=== PATIENT | female | born 1990 | race Caucasian/White ===

== ENCOUNTER 2016-11-24 15:47 | Emergency (ER) | payer OTHER ==
[2016-11-24 17:14] LABS: Appearance,Urine Clear (Clear); Bilirubin,Urine Negative (Negative); Glucose,Urine (UA) Negative (Negative); Ketones,Urine Negative (Negative); Leukocyte Esterase,Urine Negative (Negative); Nitrite,Urine Negative (Negative); PH, Urine 6.5 (5.0-8.0); Protein,Urine Negative (Negative); Specific Gravity,Urine 1.011 (1.001-1.035); UA Billing (MACRO vs. MICRO) CHEM; Urobilinogen,Urine <2.0 mg/dL (<2.0)
[2016-11-24] MEDS ORDERED: DIAZEPAM 5 MG TAB PO STA (17:28)
[2016-11-24] MEDS ORDERED: MECLIZINE 12.5 MG TAB PO STA (17:28)
[2016-11-24] MEDS ORDERED: ONDANSETRON ODT 4 MG TAB PO STA (17:28)
--- NOTE | 2016-11-24 17:29 | ED ---
General Adult HPI - General Chief complaint: Dizziness Stated complaint: Dizzy/Vomiting Time Seen by Provider: 11/24/16 16:36 Source: patient, RN notes reviewed, old records reviewed Mode of arrival: wheelchair Limitations: no limitations - History of Present Illness Initial comments: This is a 26-year-old female the ER for evaluation of nausea vomiting room spinning around. Patient has no medical history takes no medications . She admits to right ear pain of about 3-4 days. Progressing, no change in hearing. Noted no other neurological deficits. Patient is vomiting with position change. Symptoms are better if she sits still worse when she looks to the right. No head trauma no fevers - Related Data Home Medications Medication Instructions Recorded Confirmed Albuterol Inhaler [Ventolin Hfa 1 - 2 puff INHALATION RT-Q6H PRN 05/16/16 Inhaler] Previous Rx's Medication Instructions Recorded Azithromycin [Zithromax Z-pack] 0 mg PO DIRECTED #6 tab 11/24/16 Diazepam [Valium] 5 mg PO HS #10 tab 11/24/16 Meclizine [Antivert] 25 mg PO TID #30 tab 11/24/16 Ondansetron [Zofran] 4 mg PO Q8HR PRN #30 tab 11/24/16 Allergies Allergy/AdvReac Type Severity Reaction Status Date / Time amoxicillin [Amoxicillin] Allergy Swelling Verified 11/24/16 16:47 Review of Systems ROS Statement: Those systems with pertinent positive or pertinent negative responses have been documented in the HPI. ROS Other: All systems not noted in ROS Statement are negative. Past Medical History Past Medical History: Asthma Additional Past Medical History / Comment(s): multiple personality disorder, bipolar, depression History of Any Multi-Drug Resistant Organisms: None Reported Past Surgical History: Adenoidectomy, Tonsillectomy Past Anesthesia/Blood Transfusion Reactions: No Reported Reaction Past Psychological History: Anxiety, Bipolar, Depression, Schizoaffective Disorder Smoking Status: Current every day smoker Past Alcohol Use History: None Reported Past Drug Use History: None Reported - Past Family History Mother Family Medical History: Cancer General Exam Limitations: no limitations General appearance: alert, in no apparent distress Head exam: Present: atraumatic, normocephalic, normal inspection Eye exam: Present: normal appearance, PERRL, EOMI, nystagmus (Left). Absent: scleral icterus, conjunctival injection, periorbital swelling ENT exam: Present: normal exam, mucous membranes moist Neck exam: Present: normal inspection. Absent: tenderness, meningismus, lymphadenopathy Respiratory exam: Present: normal lung sounds bilaterally. Absent: respiratory distress, wheezes, rales, rhonchi, stridor Cardiovascular Exam: Present: regular rate, normal rhythm, normal heart sounds. Absent: systolic murmur, diastolic murmur, rubs, gallop, clicks GI/Abdominal exam: Present: soft, normal bowel sounds. Absent: distended, tenderness, guarding, rebound, rigid Extremities exam: Present: normal inspection, full ROM, normal capillary refill. Absent: tenderness, pedal edema, joint swelling, calf tenderness Back exam: Present: normal inspection Neurological exam: Present: alert, oriented X3, CN II-XII intact Psychiatric exam: Present: normal affect, normal mood Skin exam: Present: warm, dry, intact, normal color. Absent: rash Course Vital Signs 11/24/16 15:58 Temperature 97.8 F Pulse Rate 78 Respiratory 18 Rate Blood Pressure 119/90 O2 Sat by Pulse 98 Oximetry - Reevaluation(s) Reevaluation #1: 11/24/16 17:35 Patient is able to ambulate without ataxia Medical Decision Making - Medical Decision Making 26 female year with right otitis as well as vertigo, suspect vertigo related to viral infection causing otitis media. Patient's symptoms are improved in emergency room. Patient will be discharged home to follow-up with primary care , at this time patient is low risk for stroke, secondary to H [facility] medical history. - Lab Data Lab Results 11/24/16 11/24/16 Range/Units 16:38 16:38 Urine Color Yellow Urine Appearance Clear (Clear) Urine pH 6.5 (5.0-8.0) Ur Specific [place] 1.011 (1.001-1.035) Urine Protein Negative (Negative) Urine Glucose (UA) Negative (Negative) Urine Ketones Negative (Negative) Urine Blood Negative (Negative) Urine Nitrate Negative (Negative) Urine Bilirubin Negative (Negative) Urine Urobilinogen <2.0 (<2.0) mg/dL Ur Leukocyte Esterase Negative (Negative) Urine HCG, Qual Not Detected (Not Detectd) Disposition Clinical Impression: Vertigo, Otitis media, left Disposition: HOME SELF-CARE Condition: Good Instructions: Vertigo (ED), Benign Paroxysmal Positional Vertigo (ED), Meniere Disease (ED), Otitis Media (ED) Prescriptions: Azithromycin [Zithromax Z-pack] 0 mg PO DIRECTED #6 tab Diazepam [Valium] 5 mg PO HS #10 tab Meclizine [Antivert] 25 mg PO TID #30 tab Ondansetron [Zofran] 4 mg PO Q8HR PRN #30 tab PRN Reason: Nausea And Vomiting Referrals: None,Stated [Primary Care Provider] - 1-2 days
[2016-11-24 17:42] VITALS: BP 116/68; PULSE 84; RESP 20; TEMP 98
== END 2016-11-24 17:40 | disposition home or self-care (01) ==
LOC: EC 15:47
DX: R42 Dizziness and giddiness (principal); H66.92 Otitis media, unspecified, left ear; Z88.0 Allergy status to penicillin; F17.200 Nicotine dependence, unspecified, uncomplicated
CPT/HCPCS: 81003; 81025; 87086; 99284

== ENCOUNTER 2017-02-12 13:57 | Emergency (ER) | payer OTHER ==
[2017-02-12 14:06] VITALS: BP 138/85; PULSE 89; RESP 18; TEMP 98.7
--- NOTE | 2017-02-12 14:24 | ED ---
ENT HPI - General Chief complaint: Dental/Oral Stated complaint: Mouth Pain Time Seen by Provider: 02/12/17 14:10 Source: patient, RN notes reviewed Mode of arrival: ambulatory Limitations: no limitations - History of Present Illness Initial comments: Patient is a 26-year-old female presents to the emergency for evaluation of dental pain. Patient is having dental pain for the past few days. Patient states she has a broken tooth in her left upper tooth. Patient states she has pain radiating on her entire upper jaw. Patient states she has not been to a dentist in a very long time. Patient states she is taking ibuprofen with no relief of symptoms. Patient denies any recent trauma to her teeth. Patient denies fevers or chills. Patient denies headache or dizziness. Patient denies any swelling or drainage from her tooth. - Related Data Home Medications Medication Instructions Recorded Confirmed Albuterol Inhaler [Ventolin Hfa 1 - 2 puff INHALATION RT-Q6H PRN 05/16/16 Inhaler] Paliperidone [Paliperidone ER] 1.5 mg PO 02/12/17 Prazosin [Minipress] 1 mg PO BID 02/12/17 02/12/17 Previous Rx's Medication Instructions Recorded Clindamycin [Cleocin] 300 mg PO Q6H #40 capsule 02/12/17 HYDROcodone/APAP 5-325MG [[place] 1 tab PO Q6HR PRN #10 tab 02/12/17 5-325] Allergies Allergy/AdvReac Type Severity Reaction Status Date / Time amoxicillin [Amoxicillin] Allergy Swelling Verified 02/12/17 14:06 Review of Systems ROS Statement: Those systems with pertinent positive or pertinent negative responses have been documented in the HPI. ROS Other: All systems not noted in ROS Statement are negative. Past Medical History Past Medical History: Asthma Additional Past Medical History / Comment(s): multiple personality disorder, bipolar, depression History of Any Multi-Drug Resistant Organisms: None Reported Past Surgical History: Adenoidectomy, Tonsillectomy Past Anesthesia/Blood Transfusion Reactions: No Reported Reaction Past Psychological History: Anxiety, Bipolar, Depression, Schizoaffective Disorder Smoking Status: Current every day smoker Past Alcohol Use History: None Reported Past Drug Use History: None Reported - Past Family History Mother Family Medical History: Cancer General Exam - General Exam Comments Initial Comments: Sitting in exam chair in no acute distress. Limitations: no limitations General appearance: alert Head exam: Present: atraumatic, normocephalic, normal inspection Eye exam: Present: normal appearance Expanded Teeth exam: Present: dental caries, fractured tooth # (18), dental tenderness # (18), other (No mouth floor tenderness) Throat exam: normal inspection Neck exam: Present: normal inspection, full ROM. Absent: tenderness, lymphadenopathy Respiratory exam: Absent: respiratory distress Extremities exam: Present: normal inspection Back exam: Present: normal inspection Neurological exam: Present: alert, oriented X3, CN II-XII intact, normal gait Psychiatric exam: Present: normal affect, normal mood Skin exam: Present: warm, dry, intact, normal color. Absent: rash Course Vital Signs 02/12/17 14:03 Temperature 98.7 F Pulse Rate 89 Respiratory 18 Rate Blood Pressure 138/85 O2 Sat by Pulse 97 Oximetry Medical Decision Making - Medical Decision Making Patient is a 26-year-old female since emergency room for violation of dental pain. Patient does have a broken tooth on tooth #18. Patient given prophylactic antibiotics and pain medications and advised to follow up with a dentist. Patient is afebrile. Negative facial edema. Patient states she understands everything that was discussed with her. Return parameters discussed. Case discussed Dr. Ching. Disposition Clinical Impression: Pain, dental Disposition: HOME SELF-CARE Condition: Good Instructions: Dental Caries (ED), Toothache (ED) Additional Instructions: Please follow up with a dentist. If you do not have a dentist, you may contact [facility]. Phone number is [phone] for existing clients. For new clients you may call [phone]. Another option is you have is the [facility] dental school. Phone number is [phone]. Medications as directed. [place] gargles. Cold fluids can sometimes help with pain as well. Return to the Emergency Room for any worsening or changing symptoms. Use cold compresses to the outside of the face. Prescriptions: HYDROcodone/APAP 5-325MG [[place] 5-325] 1 tab PO Q6HR PRN #10 tab PRN Reason: Pain Clindamycin [Cleocin] 300 mg PO Q6H #40 capsule Referrals: None,Stated [Primary Care Provider] - 1-2 days Time of Disposition: 14:23
== END 2017-02-12 14:34 | disposition home or self-care (01) ==
LOC: EC 13:57
DX: K08.89 Other specified disorders of teeth and supporting structures (principal); K13.79 Other lesions of oral mucosa; F25.9 Schizoaffective disorder, unspecified; F31.9 Bipolar disorder, unspecified; F41.9 Anxiety disorder, unspecified; F44.81 Dissociative identity disorder; F17.200 Nicotine dependence, unspecified, uncomplicated; Z79.899 Other long term (current) drug therapy; Z88.0 Allergy status to penicillin
CPT/HCPCS: 99282

== ENCOUNTER 2017-04-26 14:17 | Emergency (ER) | payer OTHER ==
[2017-04-26 14:22] VITALS: BP 126/85; PULSE 84; RESP 20; TEMP 99
[2017-04-26] MEDS ORDERED: SODIUM CHLORIDE 0.9% 1,000 ML IV ONE ×2 (15:25)
[2017-04-26] MEDS ORDERED: SODIUM CHLORIDE 0.9% 500 ML IV ONE (15:25)
[2017-04-26] MEDS ORDERED: ONDANSETRON 4 MG/2 ML VIAL IVP STA (15:26)
[2017-04-26] MEDS ORDERED: diphenhydrAMINE 50 MG/ML 1 ML VIAL IVP STA (15:26)
[2017-04-26] MEDS ORDERED: ACETAMINOPHEN IV (For NPO) 1,000 MG in EMPTY BAG 1 BAG IVPB STA (15:26)
--- NOTE | 2017-04-26 15:47 | ED ---
General Adult HPI - General Chief complaint: Abdominal Pain Stated complaint: Abd Pain Time Seen by Provider: 04/26/17 14:25 Source: patient, RN notes reviewed, old records reviewed Mode of arrival: ambulatory Limitations: no limitations - History of Present Illness Initial comments: This is a 26-year-old female here for evaluation of nausea vomiting. Positive , states she is unable from today weeks . No bleeding. Just occasional gallop any cramping. Similar symptoms with prior G3. 2. Patient has currently active nausea no active diarrhea. No travel history no sick contacts. No fevers - Related Data Previous Rx's Medication Instructions Recorded Ondansetron Odt [Zofran Odt] 4 mg PO Q8HR PRN #30 tab 04/26/17 Pnv No.95/Ferrous Fum/Folic AC 1 each PO DAILY #30 tablet 04/26/17 [ Multivitamin Tablet] Pyridoxine HCl (Vitamin B6) 100 mg PO DAILY #30 tablet 04/26/17 [Vitamin B-6] diphenhydrAMINE [Benadryl] 25 mg PO BID PRN #30 capsule 04/26/17 Allergies Allergy/AdvReac Type Severity Reaction Status Date / Time amoxicillin [Amoxicillin] Allergy Swelling Verified 04/26/17 14:38 Review of Systems ROS Statement: Those systems with pertinent positive or pertinent negative responses have been documented in the HPI. ROS Other: All systems not noted in ROS Statement are negative. Past Medical History Past Medical History: Asthma Additional Past Medical History / Comment(s): multiple personality disorder, bipolar, depression History of Any Multi-Drug Resistant Organisms: None Reported Past Surgical History: Adenoidectomy, Tonsillectomy Past Anesthesia/Blood Transfusion Reactions: No Reported Reaction Past Psychological History: Anxiety, Bipolar, Depression, Schizoaffective Disorder Smoking Status: Current every day smoker Past Alcohol Use History: None Reported Past Drug Use History: None Reported - Past Family History Mother Family Medical History: Cancer General Exam Limitations: no limitations General appearance: alert, in no apparent distress Head exam: Present: atraumatic, normocephalic, normal inspection Eye exam: Present: normal appearance, PERRL, EOMI. Absent: scleral icterus, conjunctival injection, periorbital swelling ENT exam: Present: normal exam, mucous membranes moist Neck exam: Present: normal inspection. Absent: tenderness, meningismus, lymphadenopathy Respiratory exam: Present: normal lung sounds bilaterally. Absent: respiratory distress, wheezes, rales, rhonchi, stridor Cardiovascular Exam: Present: regular rate, normal rhythm, normal heart sounds. Absent: systolic murmur, diastolic murmur, rubs, gallop, clicks GI/Abdominal exam: Present: soft, normal bowel sounds. Absent: distended, tenderness, guarding, rebound, rigid Extremities exam: Present: normal inspection, full ROM, normal capillary refill. Absent: tenderness, pedal edema, joint swelling, calf tenderness Back exam: Present: normal inspection Neurological exam: Present: alert, oriented X3, CN II-XII intact Psychiatric exam: Present: normal affect, normal mood Skin exam: Present: warm, dry, intact, normal color. Absent: rash Course Vital Signs 04/26/17 14:18 Temperature 99.0 F Pulse Rate 84 Respiratory 20 Rate Blood Pressure 126/85 O2 Sat by Pulse 98 Oximetry - Reevaluation(s) Reevaluation #1: 04/26/17 17:19 Patient feels better, symptoms resolved Medical Decision Making - Medical Decision Making 26 female in the ER with nausea vomiting of , patient with positive , electrolytes normal urine is negative will be discharged home - Lab Data Result diagrams: 04/26/17 15:50 04/26/17 15:50 Lab Results 04/26/17 04/26/17 04/26/17 Range/Units 15:50 15:50 15:50 WBC 11.9 H (3.8-10.6) k/uL RBC 4.83 (3.80-5.40) m/uL Hgb 15.1 (11.4-16.0) gm/dL Hct 44.6 (34.0-46.0) % MCV 92.3 (80.0-100.0) fL MCH 31.3 (25.0-35.0) pg MCHC 33.9 (31.0-37.0) g/dL RDW 13.1 (11.5-15.5) % Plt Count 254 (150-450) k/uL Neutrophils % 79 % Lymphocytes % 13 % Monocytes % 6 % Eosinophils % 1 % Basophils % 0 % Neutrophils # 9.4 H (1.3-7.7) k/uL Lymphocytes # 1.5 (1.0-4.8) k/uL Monocytes # 0.7 (0-1.0) k/uL Eosinophils # 0.1 (0-0.7) k/uL Basophils # 0.0 (0-0.2) k/uL Sodium (137-145) mmol/L Potassium (3.5-5.1) mmol/L Chloride (98-107) mmol/L Carbon Dioxide (22-30) mmol/L Anion Gap mmol/L BUN (7-17) mg/dL Creatinine (0.52-1.04) mg/dL Est GFR (MDRD) Af Amer (>60 ml/min/1.73 sqM) Est GFR (MDRD) Non-Af (>60 ml/min/1.73 sqM) Glucose (74-99) mg/dL Calcium (8.4-10.2) mg/dL Phosphorus (2.5-4.5) mg/dL Magnesium (1.6-2.3) mg/dL Total Bilirubin (0.2-1.3) mg/dL AST (14-36) U/L ALT (9-52) U/L Alkaline Phosphatase (38-126) U/L Total Protein (6.3-8.2) g/dL Albumin (3.5-5.0) g/dL HCG, Quant mIU/mL Urine Color Urine Appearance (Clear) Urine pH (5.0-8.0) Ur Specific [place] (1.001-1.035) Urine Protein (Negative) Urine Glucose (UA) (Negative) Urine Ketones (Negative) Urine Blood (Negative) Urine Nitrite (Negative) Urine Bilirubin (Negative) Urine Urobilinogen (<2.0) mg/dL Ur Leukocyte Esterase (Negative) Urine RBC (0-5) /hpf Urine WBC (0-5) /hpf Ur Squamous Epith Cells (0-4) /hpf Urine Bacteria (None) /hpf Urine Mucus (None) /hpf Urine HCG, Qual Detected (Not Detectd) Blood Type A Positive Blood Type Recheck No 04/26/17 04/26/17 Range/Units 15:50 15:50 WBC (3.8-10.6) k/uL RBC (3.80-5.40) m/uL Hgb (11.4-16.0) gm/dL Hct (34.0-46.0) % MCV (80.0-100.0) fL MCH (25.0-35.0) pg MCHC (31.0-37.0) g/dL RDW (11.5-15.5) % Plt Count (150-450) k/uL Neutrophils % % Lymphocytes % % Monocytes % % Eosinophils % % Basophils % % Neutrophils # (1.3-7.7) k/uL Lymphocytes # (1.0-4.8) k/uL Monocytes # (0-1.0) k/uL Eosinophils # (0-0.7) k/uL Basophils # (0-0.2) k/uL Sodium 138 (137-145) mmol/L Potassium 4.4 (3.5-5.1) mmol/L Chloride 106 (98-107) mmol/L Carbon Dioxide 22 (22-30) mmol/L Anion Gap 10 mmol/L BUN 9 (7-17) mg/dL Creatinine 0.78 (0.52-1.04) mg/dL Est GFR (MDRD) Af Amer >60 (>60 ml/min/1.73 sqM) Est GFR (MDRD) Non-Af >60 (>60 ml/min/1.73 sqM) Glucose 83 (74-99) mg/dL Calcium 9.4 (8.4-10.2) mg/dL Phosphorus 3.7 (2.5-4.5) mg/dL Magnesium 1.8 (1.6-2.3) mg/dL Total Bilirubin 0.7 (0.2-1.3) mg/dL AST 20 (14-36) U/L ALT 40 (9-52) U/L Alkaline Phosphatase 64 (38-126) U/L Total Protein 7.0 (6.3-8.2) g/dL Albumin 4.2 (3.5-5.0) g/dL HCG, Quant 10777.2 mIU/mL Urine Color Dark Yellow Urine Appearance Cloudy H (Clear) Urine pH 6.5 (5.0-8.0) Ur Specific [place] 1.030 (1.001-1.035) Urine Protein 1+ H (Negative) Urine Glucose (UA) Negative (Negative) Urine Ketones Negative (Negative) Urine Blood Negative (Negative) Urine Nitrite Negative (Negative) Urine Bilirubin Negative (Negative) Urine Urobilinogen 3.0 (<2.0) mg/dL Ur Leukocyte Esterase Small H (Negative) Urine RBC 3 (0-5) /hpf Urine WBC 3 (0-5) /hpf Ur Squamous Epith Cells 35 H (0-4) /hpf Urine Bacteria Moderate H (None) /hpf Urine Mucus Many H (None) /hpf Urine HCG, Qual (Not Detectd) Blood Type Blood Type Recheck - Radiology Data Radiology results: report reviewed (Ultrasound positive IUP), image reviewed Disposition Clinical Impression: Menstrual cramps, Abdominal pain, Nausea & vomiting Disposition: HOME SELF-CARE Condition: Good Instructions: Nausea and Vomiting in (ED) Prescriptions: diphenhydrAMINE [Benadryl] 25 mg PO BID PRN #30 capsule PRN Reason: Nausea Ondansetron Odt [Zofran Odt] 4 mg PO Q8HR PRN #30 tab PRN Reason: Nausea And Vomiting Pnv No.95/Ferrous Fum/Folic AC [ Multivitamin Tablet] 1 each PO DAILY # 30 tablet Pyridoxine HCl (Vitamin B6) [Vitamin B-6] 100 mg PO DAILY #30 tablet Referrals: None,Stated [Primary Care Provider] - 1-2 days
[2017-04-26 16:05] LABS: Basophils % (A) 0 %; CHCM 34.8; Eosinophils # (A) 0.1 k/uL (0-0.7); Eosinophils % (A) 1 %; HCT 44.6 % (34.0-46.0); HDW 2.19; HGB 15.1 gm/dL (11.4-16.0); Luc # (Auto) 0.16; Luc % (Auto) 1; Lymphocytes # (A) 1.5 k/uL (1.0-4.8); Lymphocytes % (A) 13 %; MCH 31.3 pg (25.0-35.0); MCHC 33.9 g/dL (31.0-37.0); MCV 92.3 fL (80.0-100.0); Mean Platelet Volume 7.5; Monocytes # (A) 0.7 k/uL (0-1.0); Monocytes % (A) 6 %; Neutrophils # (A) 9.4 k/uL (1.3-7.7); Neutrophils % (A) 79 %; RBC 4.83 m/uL (3.80-5.40); RDW 13.1 % (11.5-15.5); WBC 11.9 k/uL (3.8-10.6); WBC (Perox) 12.18
[2017-04-26 16:15] LABS: ALT 40 U/L (9-52); AST 20 U/L (14-36); Alkaline Phosphatase 64 U/L (38-126); Anion Gap 10 mmol/L; Blood Urea Nitrogen 9 mg/dL (7-17); Calcium 9.4 mg/dL (8.4-10.2); Carbon Dioxide 22 mmol/L (22-30); Chloride 106 mmol/L (98-107); Glucose 83 mg/dL (74-99); Magnesium 1.8 mg/dL (1.6-2.3); Non-African American GFR(MDRD) >60 (>60 ml/min/1.73 sqM); Phosphorous 3.7 mg/dL (2.5-4.5); Potassium 4.4 mmol/L (3.5-5.1); Sodium 138 mmol/L (137-145); Total Bilirubin 0.7 mg/dL (0.2-1.3)
--- NOTE | 2017-04-26 16:48 | US ---
EXAMINATION TYPE: US OB <= 14 wk fetus DATE OF EXAM: 04/26/2017 COMPARISON: NONE CLINICAL HISTORY: pain. EXAM PERFORMED: Transabdominal (TA) EXAM MEASUREMENTS: GESTATIONAL AGE / DATING Physician Established: Not yet established Dates by LMP: 6 weeks/5 days) EDC: 12/15/16 Dates by First Scan: 1st scan today Dates by Current Scan for: (6 weeks/1 days) EDC: 12/19/16 MATERNAL ANATOMY Uterus: 11.3 x 5.6 5.8cm Right Ovary: 2.4 x 2.0 x 2.1cm Left Ovary: 3.8 x 3.4 x 2.7 Post CDS / Adnexa: wnl GESTATION / SURVEY CRL: 0.5 (6 weeks/1 days) Yolk Sac (normal less than 6mm): 3mm Heart Rate: 123 bpm Rhythm: Normal IUP: Viable IUP Date of LMP: 03/10/17 Beta HcG (if available): not available IMPRESSION: The ultrasound gestational age is 6 weeks 1 day. I see no complicating process.
[2017-04-26 16:54] LABS: Appearance,Urine Cloudy (Clear); Bacteria,Urine Moderate /hpf; Bilirubin,Urine Negative (Negative); Glucose,Urine (UA) Negative (Negative); Ketones,Urine Negative (Negative); Leukocyte Esterase,Urine Small (Negative); Mucus,Urine Many /hpf; Nitrite,Urine Negative (Negative); PH, Urine 6.5 (5.0-8.0); Particle Count 37026; Protein,Urine 1+ (Negative); RBC,Urine 3 /hpf (0-5); Squamous Epithelial Cell,Urine 35 /hpf (0-4); UA Billing (MACRO vs. MICRO) MICRO; WBC,Urine 3 /hpf (0-5)
[2017-04-26 17:06] LABS: HCG,Quantitative Serum 71061.2 mIU/mL
== END 2017-04-26 17:51 | disposition home or self-care (01) ==
LOC: EC 14:17
DX: N94.6 Dysmenorrhea, unspecified (principal); R10.9 Unspecified abdominal pain; R11.2 Nausea with vomiting, unspecified; Z32.02 Encounter for pregnancy test, result negative; F17.200 Nicotine dependence, unspecified, uncomplicated; Z88.0 Allergy status to penicillin
CPT/HCPCS: 36415; 86900; 86901; 80053; 83735; 84100; 85025; 81001; 81025; 84702; 87086; 76801; 99284; 96365; 96366; 96375 ×2; J1200; J2405; J0131

== ENCOUNTER → 2017-06-05 | Outpatient (CLI) | payer OTHER ==
[2017-06-05 10:36] LABS: CH 31.4; CHCM 34.5; HCT 38.6 % (34.0-46.0); HDW 2.29; HGB 13.2 gm/dL (11.4-16.0); MCH 31.3 pg (25.0-35.0); MCHC 34.2 g/dL (31.0-37.0); MCV 91.5 fL (80.0-100.0); Mean Platelet Volume 6.6; RBC 4.22 m/uL (3.80-5.40); RDW 12.4 % (11.5-15.5); WBC 11.7 k/uL (3.8-10.6)
[2017-06-05 11:21] LABS: Glucose 80 mg/dL (74-99); Non-African American GFR(MDRD) >60 (>60 ml/min/1.73 sqM)
[2017-06-05 11:52] LABS: Hepatitis B Surface Ag Index 0.05
[2017-06-05 14:51] LABS: Hemoglobin A1C 5.3 % (4.2-6.1)
[2017-06-05 15:33] LABS: Treponemal Ab Non-Reactive (Non-Reactive)
== END | disposition home or self-care (01) ==
LOC: LABWHC1 09:39
PROVIDERS: ATTEND Obstetrics & Gynecology
DX: O26.811 Pregnancy related exhaustion and fatigue, first trimester (principal); Z3A.00 Weeks of gestation of pregnancy not specified
CPT/HCPCS: 36415; 82565; 82947; 83036; 84443; 85027; 86762; 86780; 86850; 86900; 86901; 87340; 87390

== ENCOUNTER → 2017-10-05 | Outpatient (CLI) | payer OTHER ==
[2017-10-05 12:58] LABS: HCT 38.7 % (34.0-46.0); MCH 30.9 pg (25.0-35.0); MCHC 33.4 g/dL (31.0-37.0); MCV 92.5 fL (80.0-100.0); Mean Platelet Volume 7.8; Platelet Count 249 k/uL (150-450); RBC 4.19 m/uL (3.80-5.40); RDW 13.6 % (11.5-15.5); WBC 13.6 k/uL (3.8-10.6)
== END | disposition home or self-care (01) ==
LOC: LABWHC1 11:21
PROVIDERS: ATTEND Obstetrics & Gynecology
DX: Z34.82 Encounter for supervision of other normal pregnancy, second trimester (principal); Z3A.00 Weeks of gestation of pregnancy not specified
CPT/HCPCS: 36415; 82950; 85027

== ENCOUNTER → 2017-10-06 | Outpatient (CLI) | payer OTHER ==
[2017-10-06 09:29] LABS: Bilirubin, Delta 0.2 mg/dL (0.0-0.2); Bilirubin,Unconjugated 0.1 mg/dL (0.0-1.1); Total Bilirubin 0.3 mg/dL (0.2-1.3)
--- NOTE | 2017-10-06 09:29 | US ---
EXAMINATION TYPE: US abdomen limited DATE OF EXAM: 10/06/2017 COMPARISON: 05/10/2013 CLINICAL HISTORY: K80.20 GALLSTONES; epigastric pain radiating laterally; 7 months ; upper ba ck pain; loose stools EXAM MEASUREMENTS: Liver Length: 18.4 cm Gallbladder Wall: 2.5mm CBD: 0.2 cm Right Kidney: 10.6 x 6.7 x 5.0 cm Pancreas: Tail obscured by overlying bowel gas Liver: Homogeneous in echotexture without intrahepatic biliary ductal dilatation or focal hepatic mas s. Gallbladder: wnl Evidence for sonographic Schroeder's sign: Yes CBD: wnl Right Kidney: wnl IMPRESSION: No sonographic evidence of cholelithiasis or acute cholecystitis. Unremarkable exam.
== END | disposition home or self-care (01) ==
LOC: RADUSWWP 08:23
PROVIDERS: ATTEND Obstetrics & Gynecology
DX: K80.20 Calculus of gallbladder without cholecystitis without obstruction (principal)
CPT/HCPCS: 36415; 76705; 82248; 82977; 84450; 84460

== ENCOUNTER 2017-11-09 17:14 | Outpatient (CLI) | payer OTHER ==
[2017-11-09 17:27] VITALS: BP 131/78; PULSE 115; RESP 20; TEMP 97
[2017-11-09 18:18] LABS: Amorphous Sediment,Urine Rare /hpf; Appearance,Urine Cloudy (Clear); Bacteria,Urine Moderate /hpf; Bilirubin,Urine Negative (Negative); Blood,Urine Negative (Negative); Color,Urine Yellow; Glucose,Urine (UA) Negative (Negative); Ketones,Urine 1+ (Negative); Leukocyte Esterase,Urine Small (Negative); Mucus,Urine Rare /hpf; Nitrite,Urine Negative (Negative); Protein,Urine Trace (Negative); RBC,Urine 2 /hpf (0-5); Specific Gravity,Urine 1.012 (1.001-1.035); Squamous Epithelial Cell,Urine 1 /hpf (0-4); Urobilinogen,Urine <2.0 mg/dL (<2.0); WBC,Urine 6 /hpf (0-5)
[2017-11-09] MEDS: LACTATED RINGERS 1,000 ML IV SCH ×2 (18:20→19:39)
[2017-11-09 18:25] LABS: Amphetamine Screen,Urine Not Detected (NotDetected); Barbiturate Screen,Urine Not Detected (NotDetected); Benzodiazepines Screen,Urine Not Detected (NotDetected); Cocaine Screen,Urine Not Detected (NotDetected); Methadone Screen, Urine Not Detected (NotDetected); Opiate Screen,Urine Not Detected (NotDetected); Oxycodone Screen, Urine Not Detected (NotDetected); Phencyclidine Screen,Urine Not Detected (NotDetected); Tricyclic Antidepressant,Urine Not Detected (NotDetected); Urn Cannabinoid Scrn Detected (NotDetected)
[2017-11-09] MEDS ORDERED: BUTORPHANOL 1 MG/ML 1 ML VIAL IV ONE (21:09)
[2017-11-09] MEDS ORDERED: LACTATED RINGERS 1,000 ML IV SCH (21:15)
--- NOTE | 2017-11-09 23:01 | US ---
EXAMINATION TYPE: US OB >= 14 wk fetus DATE OF EXAM: 11/09/2017 COMPARISON: None CLINICAL HISTORY: laborContractions TECHNIQUE: Transabdominal (TA) GESTATIONAL AGE / DATING Physician Established: (34 weeks/6 days) EDC: 12/15/2017 Dates by LMP: (34 weeks/6 days) EDC: 12/15/2017 Dates by First Scan: (6 weeks/1 days) EDC: 12/19/2017 Dates by Current Scan: (34 weeks/1 days) EDC: 12/20/2017 SURVEY IUP: Single PLACENTA: Anterior PREVIA: No Previa MICHAEL: 13.5 cm Normal CERVICAL LENGTH (transabdominal: norm > 3.0cm): 3.7 cm BIOMETRY PRESENTATION: Vertex LIE: Longitudinal BPD: 8.8 cm 35 weeks / 3 days HC: 31.6 cm 35 weeks / 3 days AC: 31.3 cm 35 weeks / 2 days FL: 6.4 cm 33 weeks / 1 days ESTIMATED WEIGHT IN GRAMS: 2504 grams ESTIMATED WEIGHT IN LBS/OZ: 5 lbs. 8 oz. WEIGHT PERCENTAGE BASED ON ESTABLISHED DATES: 42.7% HC/AC: 1.0 cm Normal FL/AC: 73.5cm Normal HEART RATE: 140 bpm RHYTHM: Normal MATERNAL WALL MEASUREMENT: 3.0 cm from skin to anterior uterine wall (if exam limited due to body hab itus). IMPRESSION: There is satisfactory growth compared to the first exam of 04-26-17. I see no complicating proces s.
[2017-11-10] MEDS: LACTATED RINGERS 1,000 ML IV SCH (00:34)
--- NOTE | 2017-11-17 08:04 | P.MSEPDOC ---
Presenting Problems - Arrival Data Date of Arrival on Unit: 11/09/17 Time of Arrival on Unit: 17:15 Mode of Transport: Portable - Complaint OB-Reason for Admission/Chief Complaint: Pain Comment: abdominal & back pain x one hour, pt denies leaking of fluid or bleeding, pt denies recent intercourse, seen in the office today at [address] Barron - no vag exam performed. back pain 06/04, abdominal pain 07/04 Medical History - Information : 3 Para: 1 Term: 1 : 0 Abortions: Spontaneous or Elective: 0 Number of Living Children: 1 - Gestational Age Gestational Age by LUZ MARIA (wks/days): 35 Weeks and 1 Days - History Complications: Smoker Review of Systems - Review of Systems Constitutional: No problems Breast: No problems ENT: No problems Cardiovascular: No problems Respiratory: No problems Gastrointestinal: No problems Genitourinary: No problems Musculoskeletal: No problems Neurological: No problems Skin: No problems Vital Signs - Temperature Temperature: 97.0 F Temperature Source: Temporal Artery Scan - Pulse Right Sitting Brachial Pulse Rate: 115 Pulse Assessment Method: Automatic Cuff - Respirations Respiratory Rate: 20 Oxygen Delivery Method: Room Air O2 Sat by Pulse Oximetry: 96 - Blood Pressure Right Arm Sitting Blood Pressure: 131/78 Blood Pressure Mean: 95 Blood Pressure Source: Automatic Cuff Medical Screen Scoring (Pre) - Cervical Exam Dilation: 1-3 cm = 1 - Uterine Contractions Frequency: < 36 weeks = 6 Duration: > 40 seconds = 2 - Maternal Vital Signs Maternal Temperature: N/A Maternal Blood Pressure: N/A Signs of Preeclampsia: N/A Maternal Respirations: N/A - Pain Assessment Pain Location and Character: Abdomen Pain Scale Used: Numeric (1 - 10) Pain Intensity: 9 Pain Description: Cramping - Maternal Trauma Maternal Trauma: N/A - Total Score Total Score (Pre): 9 Medical Screen Scoring (Post) - Cervical Exam Dilation: 1-3 cm = 1 Membranes: Intact - Uterine Contractions Frequency: < 36 weeks = 6 Duration: > 40 seconds = 2 - Maternal Vital Signs Maternal Temperature: N/A Maternal Blood Pressure: N/A Signs of Preeclampsia: N/A Maternal Respirations: N/A - Pain Assessment Pain Location and Character: Back, Abdomen, Sacrum Pain Scale Used: Numeric (1 - 10) Pain Intensity: 3 Pain Management Goal: 3 Pain Description: *Acute, Pressure Pain Frequency: Intermittent Pain Duration: 7 Pain Duration Units: Hours Pain Behavior: Vocalization Pharmacological Interventions: PRN Medication Non-Pharmacological Interventions: Position/Reposition - Maternal Trauma Maternal Trauma: N/A - Assessment Heart Rate: 135 Heart Rate - NICHD Category: Category I (Normal) = 0 NST: Reactive - Total Score Total Score (Post): 9 - Post Treatment Level of Risk Post Treatment Level of Risk: Medium (6-9) Physician Notification (Post) - Physician Notified Physician Notified Date: 11/09/17 Physician Notified Time: 22:21 Physician/Practitioner Notified:: kiet Spoke With: kiet New Order Received: Yes - Notification Comment Comment: observe pt in triage for two more hours after stadol was given. if pt is feeling better and contx are less frequent, pt may be discharged home. if contx become very painful and frequent, call for further orders. Disposition - Disposition OB Disposition: Discharge to home Discharge Date: 11/10/17 Discharge Time: 00:05 I agree with the RN Medical Screening Exam: Yes Risk & Benefit of care provided described in d/c instruction: Yes Diagnosis: FALSE LABOR BEFORE 37 COMPLETED WEEKS OF GEST, THIRD TRI
== END 2017-11-10 00:05 | disposition home or self-care (01) ==
LOC: FBPOP 17:14
PROVIDERS: ATTEND Obstetrics & Gynecology
DX: O47.03 False labor before 37 completed weeks of gestation, third trimester (principal); Z3A.35 35 weeks gestation of pregnancy
CPT/HCPCS: 59025; 96360; 96361; 96375; 84112; 81001; 80306; 76805; G0463; J0595; 99214

== ENCOUNTER 2017-11-16 10:31 | Outpatient (CLI) | payer OTHER ==
[2017-11-16 11:42] VITALS: BP 132/73; PULSE 82; RESP 16; TEMP 97.6
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
== END 2017-11-16 10:45 | disposition home or self-care (01) ==
LOC: FBPOP 10:31
PROVIDERS: ATTEND Obstetrics & Gynecology
DX: O47.1 False labor at or after 37 completed weeks of gestation (principal); Z3A.36 36 weeks gestation of pregnancy
CPT/HCPCS: 59025; 84112; G0463; 99213

== ENCOUNTER 2017-11-19 10:38 | Outpatient (CLI) | payer OTHER ==
[2017-11-19 12:11] VITALS: BP 115/73; PULSE 95; RESP 16; TEMP 97.3
--- NOTE | 2017-11-19 16:08 | P.MSEPDOC ---
Presenting Problems - Arrival Data Date of Arrival on Unit: 11/19/17 Time of Arrival on Unit: 10:39 Mode of Transport: Wheelchair - Complaint OB-Reason for Admission/Chief Complaint: Possible Onset of Labor Comment: contraction since last evening Medical History - Information : 3 Para: 1 Term: 1 : 0 Abortions: Spontaneous or Elective: 1 Number of Living Children: 1 - Gestational Age Gestational Age by LUZ MARIA (wks/days): 36 Weeks and 3 Days - History Complications: Smoker Review of Systems - Review of Systems Constitutional: No problems Breast: No problems ENT: No problems Cardiovascular: No problems Respiratory: No problems Gastrointestinal: No problems Genitourinary: No problems Musculoskeletal: No problems Neurological: No problems Skin: No problems Vital Signs - Temperature Temperature: 97.3 F Temperature Source: Temporal Artery Scan - Pulse Right Brachial Pulse Rate: 95 Pulse Assessment Method: Automatic Cuff - Respirations Respiratory Rate: 16 Oxygen Delivery Method: Room Air - Blood Pressure Right Arm Blood Pressure: 115/73 Blood Pressure Mean: 87 Blood Pressure Source: Automatic Cuff Medical Screen Scoring (Pre) - Cervical Exam Dilation: 1-3 cm = 1 Membranes: Intact - Uterine Contractions Frequency: > 5 minutes apart = 1 Duration: > 40 seconds = 2 Intensity: N/A - Maternal Vital Signs Maternal Temperature: N/A Maternal Blood Pressure: N/A Signs of Preeclampsia: N/A Maternal Respirations: N/A - Pain Assessment Pain Location and Character: Abdomen Pain Scale Used: Numeric (1 - 10) Pain Intensity: 3 Pain Management Goal: 1 Pain Description: Cramping Pain Frequency: Intermittent Pain Duration Units: Hours Pain Behavior: None Exhibited - Assessment Baseline FHR: 150 Heart Rate - NICHD Category: Category I (Normal) = 0 NST: Reactive Position: N/A - Total Score Total Score (Pre): 4 - Level of Risk Level of Risk: Low (0-5) Physician Notification (Pre) - Physician Notified Physician Notified Date: 11/19/17 Physician Notified Time: 11:14 Physician/Practitioner Notifed:: aldo Spoke With: aldo New Order Received: Yes - Notification Comment Comment: dr carlson in department. with a reactive nst and no cervical change in one hour pt may be discharged home Disposition - Disposition OB Disposition: Discharge to home Discharge Date: 02/25/18 Discharge Time: 12:10 I agree with the RN Medical Screening Exam: Yes Risk & Benefit of care provided described in d/c instruction: Yes Diagnosis: FALSE LABOR BEFORE 37 COMPLETED WEEKS OF GEST, THIRD TRI
== END 2017-11-19 12:11 | disposition home or self-care (01) ==
LOC: FBPOP 10:38
PROVIDERS: ATTEND Obstetrics & Gynecology
DX: O47.03 False labor before 37 completed weeks of gestation, third trimester (principal); Z3A.36 36 weeks gestation of pregnancy; O99.333 Smoking (tobacco) complicating pregnancy, third trimester
CPT/HCPCS: 59025; G0463; 99213

== ENCOUNTER 2017-12-08 00:11 | Inpatient (IN) | payer OTHER ==
[2017-12-08] MEDS: LACTATED RINGERS 1,000 ML IV SCH ×3 (00:25→10:09)
[2017-12-08 00:50] VITALS: BMI 53.7
[2017-12-08] MEDS ORDERED: OXYTOCIN 10 UNIT/ML 1 ML VIAL IM PRN (01:08)
[2017-12-08] MEDS ORDERED: CARBOPROST TROMETHAMINE 250 MCG/ML 1 ML AMP IM PRN (01:08)
[2017-12-08] MEDS ORDERED: TERBUTALINE 1 MG/ML VIAL SQ PRN (01:08)
[2017-12-08] MEDS ORDERED: METHYLERGONOVINE 0.2 MG/ML 1 ML AMP IM PRN (01:08)
[2017-12-08] MEDS ORDERED: LIDOCAINE 1% (PF) 10 MG/ML (30 ML SDV) SQ PRN (01:08)
[2017-12-08] MEDS ORDERED: OXYTOCIN 20 UNITS/1000 ML NS 1,000 ML IV SCH (01:15)
[2017-12-08 02:25] LABS: Basophils % (A) 0 %; Eosinophils # (A) 0.1 k/uL (0-0.7); Eosinophils % (A) 1 %; HCT 35.3 % (34.0-46.0); HGB 12.7 gm/dL (11.4-16.0); Lymphocytes # (A) 1.9 k/uL (1.0-4.8); Lymphocytes % (A) 16 %; MCH 32.1 pg (25.0-35.0); MCHC 35.8 g/dL (31.0-37.0); MCV 89.7 fL (80.0-100.0); Mean Platelet Volume 7.2; Monocytes # (A) 0.8 k/uL (0-1.0); Monocytes % (A) 7 %; Neutrophils # (A) 8.8 k/uL (1.3-7.7); Neutrophils % (A) 74 %; Platelet Count 219 k/uL (150-450); RBC 3.94 m/uL (3.80-5.40); RDW 13.6 % (11.5-15.5); WBC 11.9 k/uL (3.8-10.6)
[2017-12-08] MEDS: BUTORPHANOL 1 MG/ML 1 ML VIAL IV PRN ×2 (02:40→04:42)
[2017-12-08] MEDS ORDERED: BUPIVACAINE (PF) 0.25% 30 ML VIAL ONE (05:07)
[2017-12-08] MEDS ORDERED: ePHEDrine SULFATE/0.9% NACL/PF 50 MG/5 ML SYRINGE IV ONE (05:07)
[2017-12-08] MEDS ORDERED: ONDANSETRON 4 MG/2 ML VIAL ONE (05:07)
[2017-12-08] MEDS ORDERED: fentaNYL (PF) 50 MCG/ML 5 ML AMP ONE (05:07)
[2017-12-08] MEDS ORDERED: SODIUM CHLORIDE 0.9% 100 ML BAG ONE (05:07)
[2017-12-08] MEDS ORDERED: ONDANSETRON 4 MG/2 ML VIAL IVP PRN (13:00)
--- NOTE | 2017-12-08 16:49 | P.HPOB ---
History of Present Illness H&P Date: 12/08/17 Chief Complaint: Intrauterine at term: Active labor Patient is a 27-year-old at 39 weeks gestation who ryes for induction of labor however, during the night her water broke and she is in active labor at this time. Her course was complicated by some pain with possible gallstones. Change in her dietary regimen didn't help that significantly. Her pertinent labs did include A+ blood type with an Rh antibody was negative, rubella was immune, hepatitis B surface antigen/RPR/group B strep were all negative. On physical exam this is an obese female whose HEENT is unremarkable. Her heart is regular, lungs are clear, extremities are without pain. Osteopathic exam is unremarkable. She was dilated to 4 cm 80% effaced and -2 station at admission. Assessment intrauterine at term. Plan expect spontaneous vaginal delivery. Will likely require Pitocin for augmentation of labor and she plans to use an epidural for analgesia. Past Medical History Past Medical History: Asthma Additional Past Medical History / Comment(s): multiple personality disorder, bipolar, depression History of Any Multi-Drug Resistant Organisms: None Reported Past Surgical History: Adenoidectomy, Tonsillectomy Past Anesthesia/Blood Transfusion Reactions: No Reported Reaction Past Psychological History: Anxiety, Bipolar, Depression, Schizoaffective Disorder Smoking Status: Current every day smoker Past Alcohol Use History: None Reported Past Drug Use History: None Reported - Past Family History Mother History Unknown: Yes Family Medical History: Cancer Medications and Allergies Home Medications Medication Instructions Recorded Confirmed Type Pnv,Calcium 72/Iron/Folic Acid 1 tab PO DAILY 11/19/17 12/08/17 History [ Plus Tablet] Albuterol Inhaler [Ventolin Hfa 2 puff INHALATION DAILY PRN 12/08/17 12/08/17 History Inhaler] Allergies Allergy/AdvReac Type Severity Reaction Status Date / Time amoxicillin [Amoxicillin] Allergy Swelling Verified 11/19/17 10:45 Exam Osteopathic Statement: *. No significant issues noted on an osteopathic structural exam other than those noted in the History and Physical/Consult. - Vital Signs Vital signs: Vital Signs Temp Pulse Resp BP 12/08/17 16:25 83 20 143/69 12/08/17 16:10 86 20 108/65 12/08/17 16:00 98.1 F 82 20 112/63 12/08/17 15:55 98.1 F 82 20 112/63 12/08/17 15:40 94 20 118/74 12/08/17 15:25 88 16 125/71 12/08/17 00:10 98.4 F 104 H 18 149/81 Intake and Output 12/08/17 12/08/17 12/08/17 06:59 14:59 22:59 Intake Total 1500 100 Output Total 400 150 Balance 1100 -50 Intake: Intake, IV Titration 1500 Amount Lactated Ringers 1,000 ml 1500 @ 125 mls/hr IV .Q8H [facility] Rx#:[id number] Oral 100 Output: Urine 400 Straight 400 Estimated Blood Loss 150 Other: Weight 133.356 kg Results Result Diagrams: 12/08/17 02:10 Abnormal Lab Results - Last 24 Hours (Table) 12/08/17 Range/Units 02:10 WBC 11.9 H (3.8-10.6) k/uL Neutrophils # 8.8 H (1.3-7.7) k/uL
--- NOTE | 2017-12-08 16:50 | P.PROBDLV ---
Vaginal Delivery Note - . Vaginal Delivery Note: Patient progressed to complete and pushing with spontaneous vaginal delivery of a viable female over an intact perineum. Following delivery of the head anterior posterior shoulders were delivered with gentle downward upper traction followed by the remainder the baby. It should be noted there was a nuchal cord 1 that was easily reduced and baby was delivered from left occiput anterior position. Once baby was delivered mouth nares were bulb suctioned and baby was placed on mother's abdomen where the umbilical cord was allowed to pulsate for 20 seconds prior to clamping and cutting. Once this was accomplished nursery personnel was present to assume care and then placenta was delivered intact. scores were 8 and 9 at one and 5 minutes respectively and the weight is 7 lbs. 9 oz. Both mother and baby are stable following delivery.
[2017-12-08] MEDS ORDERED: LANOLIN CREAM 5 GM TUBE TOPICAL PRN (18:20)
[2017-12-08] MEDS ORDERED: WITCH HAZEL 1 EACH MED..PAD TOPICAL PRN (18:20)
[2017-12-08] MEDS ORDERED: SIMETHICONE 80 MG CHEWABLE PO PRN (18:20)
[2017-12-08] MEDS ORDERED: HYDROCORTISONE 2.5% RECTAL CREAM 30 GM TUBE RECTAL PRN (18:20)
[2017-12-08] MEDS ORDERED: diphenhydrAMINE 25 MG CAP PO PRN (18:20)
[2017-12-08] MEDS ORDERED: diphenhydrAMINE 50 MG/ML 1 ML VIAL IVP PRN ×2 (18:20)
[2017-12-08] MEDS ORDERED: ZOLPIDEM 5 MG TAB PO PRN (18:20)
[2017-12-08] MEDS ORDERED: diphenhydrAMINE 50 MG CAP PO PRN (18:20)
[2017-12-08] MEDS ORDERED: ACETAMINOPHEN TAB 325 MG TAB PO PRN (18:20)
[2017-12-08] MEDS ORDERED: BENZOCAINE/MENTHOL SPRAY 1 GM/SPRAY AEROSOL TOPICAL PRN (18:20)
[2017-12-08] MEDS: IBUPROFEN 600 MG TAB PO PRN (18:30)
[2017-12-08] MEDS: SENNOSIDES-DOCUSATE SODIUM 1 EACH TAB PO SCH (21:51)
[2017-12-09] MEDS: IBUPROFEN 600 MG TAB PO PRN ×2 (06:04→14:09)
[2017-12-09] MEDS: SENNOSIDES-DOCUSATE SODIUM 1 EACH TAB PO SCH (08:39)
[2017-12-09 08:40] LABS: Basophils % (A) 0 %; Eosinophils # (A) 0.1 k/uL (0-0.7); Eosinophils % (A) 1 %; HGB 12.2 gm/dL (11.4-16.0); Lymphocytes # (A) 1.7 k/uL (1.0-4.8); Lymphocytes % (A) 11 %; MCH 31.9 pg (25.0-35.0); MCHC 34.7 g/dL (31.0-37.0); MCV 91.8 fL (80.0-100.0); Mean Platelet Volume 7.5; Monocytes # (A) 0.8 k/uL (0-1.0); Monocytes % (A) 6 %; Neutrophils # (A) 12.5 k/uL (1.3-7.7); Neutrophils % (A) 81 %; Platelet Count 205 k/uL (150-450); RBC 3.82 m/uL (3.80-5.40); RDW 13.8 % (11.5-15.5); WBC 15.4 k/uL (3.8-10.6)
[2017-12-09 08:56] VITALS: BP 100/56; PULSE 75; RESP 16; TEMP 97.9
--- NOTE | 2017-12-09 09:53 | P.DS ---
Providers Date of admission: 12/08/17 00:11 Expected date of discharge: 12/09/17 Attending physician: Benji Barron Primary care physician: Stated None Hospital Course: Patient is doing very well post day 1. She is ambulating, voiding, and she is tolerating her diet. She voices no complaint. Vital signs are stable and afebrile. Heart regular, lungs clear, extremities are without pain. Abdomen is soft uterus is firm below the umbilicus and lochia is reported be light. Assessment day 1. Plan discharged home follow me in 6 weeks. Discharge instructions were thoroughly reviewed and all questions were answered for her prior to her discharge. A prescription for Motrin has also been provided. She is stable for discharge later today. Patient Condition at Discharge: Good Plan - Discharge Summary New Discharge Prescriptions: New Ibuprofen [Motrin] 600 mg PO Q6HR PRN #30 tab PRN Reason: Pain No Action Pnv,Calcium 72/Iron/Folic Acid [ Plus Tablet] 1 tab PO DAILY Albuterol Inhaler [Ventolin Hfa Inhaler] 2 puff INHALATION DAILY PRN PRN Reason: Respiratory Distress Discharge Medication List Pnv,Calcium 72/Iron/Folic Acid [ Plus Tablet] 1 tab PO DAILY 11/19/17 [ History] Albuterol Inhaler [Ventolin Hfa Inhaler] 2 puff INHALATION DAILY PRN 12/08/17 [ History] Ibuprofen [Motrin] 600 mg PO Q6HR PRN #30 tab 12/09/17 [Rx] Follow up Appointment(s)/Referral(s): Benji Barron DO [Doctor of Osteopathic Medicine] - 6 Weeks Activity/Diet/Wound Care/Special Instructions: No heavy lifting, limit stairs and driving, and pelvic rest. If any high temperatures, heavy bleeding, or severe pain call my office Discharge Disposition: HOME SELF-CARE
[2017-12-09] MEDS ORDERED: diphenhydrAMINE 2% CREAM 28.4 GM TUBE TOPICAL SCH (16:00)
== END 2017-12-09 16:09 | disposition home or self-care (01) | DRG 775 ==
LOC: 4FBP 00:11
PROVIDERS: ADMIT Obstetrics & Gynecology; ATTEND Obstetrics & Gynecology
PROC: 10E0XZZ Delivery of Products of Conception, External Approach (ICD-10-PCS; principal; 2017-12-08)
PROC: 3E0R3NZ Introduction of Analgesics, Hypnotics, Sedatives into Spinal Canal, Percutaneous Approach (ICD-10-PCS; 2017-12-08)
DX: O99.334 Smoking (tobacco) complicating childbirth (principal); F17.200 Nicotine dependence, unspecified, uncomplicated; Z37.0 Single live birth; O99.52 Diseases of the respiratory system complicating childbirth; Z3A.39 39 weeks gestation of pregnancy; J45.909 Unspecified asthma, uncomplicated; Z88.1 Allergy status to other antibiotic agents; O69.81X0 Labor and delivery complicated by cord around neck, without compression, not applicable or unspecified
CPT/HCPCS: 85025; 88307

== ENCOUNTER 2018-01-27 04:25 | Emergency (ER) | payer OTHER ==
[2018-01-27 04:34] VITALS: RESP 18; TEMP 99
[2018-01-27] MEDS ORDERED: IPRATROPIUM-ALBUTEROL 3 ML NEB INHALATION STA (04:42)
--- NOTE | 2018-01-27 05:33 | XR ---
EXAM: XR Chest, 2 Views CLINICAL HISTORY: ITS.REASON XR Reason: cough TECHNIQUE: Frontal and lateral views of the chest. COMPARISON: 08/08/15 FINDINGS: Lungs: Unremarkable. No consolidation. Pleural space: Unremarkable. No pneumothorax. Heart: Unremarkable. No cardiomegaly. Mediastinum: Unremarkable. Bones/joints: Unremarkable. IMPRESSION: Normal chest x-rays.
--- NOTE | 2018-01-27 05:41 | ED ---
URI HPI - General Chief Complaint: Upper Respiratory Infection Stated Complaint: Congestions/Possible URI Time Seen by Provider: 01/27/18 04:59 Source: patient Mode of arrival: ambulatory Limitations: no limitations - History of Present Illness Initial Comments: This patient is 27-year-old woman who presents to be evaluated for constellation of symptoms, including cough, congestion and rhinorrhea, and sore throat. Symptoms have been going on for approximately 3 days, and the patient is concerned, wanting to make sure that she does not have something contagious as she has a young child at home. Patient is denying fever or chills, dyspnea, change in urination, swelling or pain in the legs. Patient does state that she was seen by the clinic doctor and given prescription for a steroid taper, as well as inhaled medication. MD Complaint: cough, sore throat, rhinorrhea, nasal congestion Onset/Timin -: days(s) Quality: burning Consistency: constant Improves With: nothing Worsens With: nothing Associated Symptoms: rhinorrhea, nasal congestion, sore throat, cough Treatments Prior to Arrival: none - Related Data Previous Rx's Medication Instructions Recorded Albuterol Inhaler [Ventolin Hfa 1 - 2 puff INHALATION Q6HR PRN #1 01/27/18 Inhaler] inhaler Promethazine 6.25MG/5Ml [Phenergan 5 ml PO Q4HR PRN #120 ml 01/27/18 Syrup] Allergies Allergy/AdvReac Type Severity Reaction Status Date / Time amoxicillin [Amoxicillin] Allergy Swelling Verified 01/04/18 17:04 Review of Systems ROS Statement: Those systems with pertinent positive or pertinent negative responses have been documented in the HPI. ROS Other: All systems not noted in ROS Statement are negative. Constitutional: Denies: fever, chills ENT: Reports: throat pain, congestion Respiratory: Reports: cough, wheezes. Denies: dyspnea Cardiovascular: Denies: chest pain, palpitations, edema Gastrointestinal: Denies: abdominal pain, vomiting, diarrhea Genitourinary: Denies: dysuria, hematuria Musculoskeletal: Denies: back pain Skin: Denies: rash Neurological: Denies: headache, weakness Past Medical History Past Medical History: Asthma Additional Past Medical History / Comment(s): multiple personality disorder, bipolar, depression History of Any Multi-Drug Resistant Organisms: None Reported Past Surgical History: Adenoidectomy, Tonsillectomy Past Anesthesia/Blood Transfusion Reactions: No Reported Reaction Past Psychological History: Anxiety, Bipolar, Depression, Schizoaffective Disorder Smoking Status: Current every day smoker Past Alcohol Use History: Rare Past Drug Use History: None Reported - Past Family History Mother History Unknown: Yes Family Medical History: Cancer General Exam Limitations: no limitations General appearance: alert, in no apparent distress, obese Head exam: Present: atraumatic, normocephalic Eye exam: Present: normal appearance. Absent: scleral icterus, conjunctival injection ENT exam: Present: mucous membranes moist, other (There is injection and cobblestoning of the pharynx) Neck exam: Present: normal inspection, full ROM Respiratory exam: Present: normal lung sounds bilaterally, wheezes. Absent: respiratory distress, rales, rhonchi, stridor, chest wall tenderness, accessory muscle use, decreased breath sounds, prolonged expiratory Cardiovascular Exam: Present: regular rate, normal rhythm, normal heart sounds. Absent: systolic murmur, diastolic murmur, rubs, gallop Extremities exam: Present: normal inspection, normal capillary refill. Absent: pedal edema, calf tenderness Neurological exam: Present: alert Skin exam: Present: warm, dry, intact, normal color. Absent: rash Course Vital Signs 01/27/18 01/27/18 01/27/18 04:28 04:54 05:00 Temperature 99.0 F Pulse Rate 80 72 72 Respiratory 18 Rate Blood Pressure 111/77 O2 Sat by Pulse 97 Oximetry Disposition Clinical Impression: Bronchitis, Upper respiratory infection Disposition: HOME SELF-CARE Condition: Good Instructions: Acute Bronchitis (ED) Prescriptions: Albuterol Inhaler [Ventolin Hfa Inhaler] 1 - 2 puff INHALATION Q6HR PRN #1 inhaler PRN Reason: Wheezing Promethazine 6.25MG/5Ml [Phenergan Syrup] 5 ml PO Q4HR PRN #120 ml PRN Reason: Cough Is patient prescribed a controlled substance at d/c from ED?: No Referrals: None,Stated [Primary Care Provider] - 1-2 days
[2018-01-27 05:47] VITALS: BP 120/77; PULSE 80
== END 2018-01-27 05:50 | disposition home or self-care (01) ==
LOC: EC 04:25
DX: J06.9 Acute upper respiratory infection, unspecified (principal); J45.909 Unspecified asthma, uncomplicated; F17.200 Nicotine dependence, unspecified, uncomplicated; Z88.0 Allergy status to penicillin
CPT/HCPCS: 71046; 94640; 99283

== ENCOUNTER 2018-01-29 13:55 | Emergency (ER) | payer OTHER ==
[2018-01-29 14:38] VITALS: RESP 18; TEMP 97.4
[2018-01-29] MEDS ORDERED: IPRATROPIUM-ALBUTEROL 3 ML NEB INHALATION STA (15:23)
--- NOTE | 2018-01-29 15:26 | ED ---
URI HPI - General Chief Complaint: Upper Respiratory Infection Stated Complaint: bronchitis-revisit Time Seen by Provider: 01/29/18 15:07 Source: patient, RN notes reviewed Mode of arrival: ambulatory Limitations: no limitations - History of Present Illness Initial Comments: This is a 27-year-old female who presents to the emergency department with chief complaint of bronchitis. Patient states that she presented to the emergency department on January 27 and was diagnosed with bronchitis. Patient does state she has a history of asthma. She presents again today because she states her symptoms have worsened. She states that she has now developed a cough. She also complains of ear fullness, runny nose and a sore throat. She denies any fevers or chills. Denies abdominal pain, nausea or vomiting, diarrhea or constipation. Denies shortness of breath or chest pain. - Related Data Home Medications Medication Instructions Recorded Confirmed Albuterol Inhaler [Ventolin Hfa 1 - 2 puff INHALATION RT-QID PRN 01/29/18 Inhaler] Beclomethasone Dipropionate [Qvar 2 puff INHALATION RT-BID 01/29/18 01/29/18 80 mcg] Furosemide [Lasix] 10 mg PO DAILY 01/29/18 01/29/18 Ibuprofen [Motrin] 800 mg PO TID PRN 01/29/18 01/29/18 Paliperidone [Invega] 1.5 mg PO DAILY 01/29/18 01/29/18 Ranitidine HCl 150 mg PO BID 01/29/18 01/29/18 methylPREDNISolone Dose Pack See Taper PO DIRECTED 01/29/18 01/29/18 [Medrol Dose Pack] Previous Rx's Medication Instructions Recorded Promethazine 6.25MG/5Ml [Phenergan 5 ml PO Q4HR PRN #120 ml 01/27/18 Syrup] Allergies Allergy/AdvReac Type Severity Reaction Status Date / Time amoxicillin [Amoxicillin] Allergy Swelling Verified 01/29/18 15:10 Review of Systems ROS Statement: Those systems with pertinent positive or pertinent negative responses have been documented in the HPI. ROS Other: All systems not noted in ROS Statement are negative. Past Medical History Past Medical History: Asthma Additional Past Medical History / Comment(s): multiple personality disorder, bipolar, depression History of Any Multi-Drug Resistant Organisms: None Reported Past Surgical History: Adenoidectomy, Tonsillectomy Past Anesthesia/Blood Transfusion Reactions: No Reported Reaction Past Psychological History: Anxiety, Bipolar, Depression, Schizoaffective Disorder Smoking Status: Current every day smoker Past Alcohol Use History: Rare Past Drug Use History: None Reported - Past Family History Mother History Unknown: Yes Family Medical History: Cancer General Exam - General Exam Comments Initial Comments: General: Awake and alert, well-developed; in no apparent distress. HEENT: Head atraumatic, normocephalic. Pupils are equal, round and reactive to light. Extraocular movements intact. Oropharynx moist without erythema or exudate. Neck: Supple. Normal ROM. Cardiovascular: Regular rate and rhythm. No murmurs, rubs or gallops. Chest symmetrical. Respiratory: Normal respiratory effort with no use of accessory muscles. Diffuse wheezes throughout all lung angel. Musculoskeletal: Normal ROM, no tenderness bilateral upper and lower extremities. Ambulating normally. Skin: Mccarr, warm and dry without rashes or lesions. Neurological: Alert and oriented x3. CN II-XII grossly intact. Speech is fluent and answers are appropriate. No focal neuro deficits. Psychiatric: Normal mood and affect. No overt signs of depression or anxiety noted. Limitations: no limitations Course Vital Signs 01/29/18 01/29/18 14:34 15:42 Temperature 97.4 F L Pulse Rate 116 H 79 Respiratory 18 18 Rate Blood Pressure 121/73 124/67 O2 Sat by Pulse 95 100 Oximetry Medical Decision Making - Medical Decision Making This is a 27-year-old female who presents for revisit of bronchitis. Patient was diagnosed with bronchitis 2 days ago. She states that she does have asthma. She states that her symptoms have worsened over the last couple of days. She denies any fevers or chills but does complain of a cough. Denies chest pain. Patient is a current, every day smoker. Chest x-ray was obtained and revealed no acute abnormalities. Influenza was negative. Patient is likely suffering from bronchitis. She does have an albuterol inhaler. Recommended using every 4 hours. On physical examination, there are diffuse wheezes throughout all lung angel. DuoNeb was administered and lung sounds have improved. Patient's vital signs are stable and she is in no acute distress. She'll be discharged home at this time. She is in agreement and voices understanding. All questions were answered. - Lab Data Lab Results 01/29/18 Range/Units 14:48 Influenza Type A RNA Not Detected (Not Detectd) Influenza Type B (PCR) Not Detected (Not Detectd) - Radiology Data Radiology results: report reviewed Chest x-ray findings: Lungs are clear and there is no pneumothorax, pleural effusion or focal pneumonia. Biapical pleural thickening. Impression: No acute process. Disposition Clinical Impression: Asthmatic bronchitis Disposition: HOME SELF-CARE Condition: Good Instructions: Acute Bronchitis in Children (ED), Wheezing (ED) Additional Instructions: Please take 2 puffs of albuterol inhaler every 4 hours as needed for shortness of breath and wheezing. Please refrain from smoking. Please follow up with primary care provider within 1-2 days. Return to emergency department if symptoms should worsen or any concerns arise. Is patient prescribed a controlled substance at d/c from ED?: No Referrals: None,Stated [Primary Care Provider] - 1-2 days Time of Disposition: 16:01
--- NOTE | 2018-01-29 15:41 | XR ---
EXAMINATION TYPE: XR chest 2V DATE OF EXAM: 01/29/2018 COMPARISON: 01/27/2018 TECHNIQUE: PA and lateral views submitted. HISTORY: Cough FINDINGS: The lungs are clear and there is no pneumothorax, pleural effusion, or focal pneumonia. Biapical pl eural thickening. IMPRESSION: 1. No acute process.
[2018-01-29 15:43] VITALS: BP 124/67
[2018-01-29 16:03] VITALS: PULSE 84
== END 2018-01-29 16:11 | disposition home or self-care (01) ==
LOC: EC 13:55
DX: J45.909 Unspecified asthma, uncomplicated (principal); F25.1 Schizoaffective disorder, depressive type; F17.200 Nicotine dependence, unspecified, uncomplicated; Z79.52 Long term (current) use of systemic steroids; Z79.899 Other long term (current) drug therapy; Z88.0 Allergy status to penicillin
CPT/HCPCS: 71046; 87502; 94640; 99284

== ENCOUNTER 2019-04-30 20:12 | Emergency (ER) | payer MEDICARE, OTHER ==
[2019-04-30] MEDS ORDERED: ALBUTEROL NEBULIZED (CONC) 5 MG, SODIUM CHLORIDE 0.9% NEBULIZ 3 ML INHALATION STA ×2 (20:17)
[2019-04-30] MEDS ORDERED: methylPREDNISolone SOD SUCCI 125 MG/2 ML VIAL IV STA (20:18)
[2019-04-30] MEDS ORDERED: ALBUTEROL NEBULIZED 2.5 MG/3 ML INHALATION STA ×2 (20:33→22:13)
[2019-04-30] MEDS ORDERED: ALBUTEROL NEB (CONC) 2.5 MG/0.5 ML INHALATION ONE (20:37)
--- NOTE | 2019-04-30 21:23 | ED ---
General Adult HPI - General Chief complaint: Shortness of Breath Stated complaint: ANTONIA Time Seen by Provider: 04/30/19 20:17 Source: patient Mode of arrival: wheelchair Limitations: no limitations - History of Present Illness Initial comments: 28-year-old female past history of asthma presenting today for chief complaint of shortness of breath. She states the past month she has been short of breath. She states that she has been using her rescue inhaler more than usual. She is not sure if this is due to ALLERGIES. Patient states she is also prescribed Qvar. Patient states that for the past week that shortness of breath has been increasing she denies any lower extremity swelling denies chest pain. Denies THIS recent surgeries recent hospitalizations or immobilization. Patient denies history of DVT or pulmonary embolism. Patient denies a history of diabetes or high blood pressure. Patient denies history of premature acute coronary syndr ome. Patient denies any thoracic back pain. Patient denies any nausea. Patient is obese. Patient denies smoking. Remaining review of system negative. Patient states she did attempt to use her rescue inhaler prior to arrival which did not seem to help. Upon arrival patient was actually well on room air. Patient has increased respiratory rate. However speaking complete sentences. - Related Data Home Medications Medication Instructions Recorded Confirmed Albuterol Inhaler [Ventolin Hfa 1 - 2 puff INHALATION RT-Q6H PRN 04/30/19 04/30/19 Inhaler] Beclomethasone Dipropionate [Qvar 1 puff INHALATION RT-BID 04/30/19 04/30/19 80 mcg] Paliperidone IM [Invega Sustenna] 156 mg IM Q7D 04/30/19 04/30/19 Ranitidine HCl [Zantac] 150 mg PO BID 04/30/19 04/30/19 Previous Rx's Medication Instructions Recorded predniSONE 20 mg PO BID 5 Days #10 tab 04/30/19 Allergies Allergy/AdvReac Type Severity Reaction Status Date / Time amoxicillin [Amoxicillin] Allergy Swelling Verified 04/30/19 20:56 Review of Systems ROS Statement: Those systems with pertinent positive or pertinent negative responses have been documented in the HPI. ROS Other: All systems not noted in ROS Statement are negative. Past Medical History Past Medical History: Asthma Additional Past Medical History / Comment(s): multiple personality disorder, bipolar, depression History of Any Multi-Drug Resistant Organisms: None Reported Past Surgical History: Adenoidectomy, Tonsillectomy Past Anesthesia/Blood Transfusion Reactions: No Reported Reaction Past Psychological History: Anxiety, Bipolar, Depression, Schizoaffective Disorder Smoking Status: Current every day smoker Past Alcohol Use History: Rare Past Drug Use History: Marijuana - Past Family History Mother History Unknown: Yes Family Medical History: Cancer General Exam - General Exam Comments Initial Comments: General: The patient is awake and alert, in no distress, and does not appear acutely ill. Eye: +3 mm pupils are equal, round and reactive to light, extra-ocular movements are intact. No nystagmus. There is normal conjunctiva bilaterally. No signs of icterus. Ears, nose, mouth and throat: There are moist mucous membranes and no oral lesions. Neck: The neck is supple, there is no tenderness or JVD. Cardiovascular: There is a regular rate and rhythm. No murmur, rub or gallop is appreciated. Respiratory: Respirations are mildly labored however there isno Retractions or abdominal breathing. There is noted mild expiratory wheeze. In addition air movement. The breath sounds are equal. No stridor, rales, or rhonchi. Gastrointestinal: Soft, non-distended, non-tender abdomen without masses or organomegaly noted. There is no rebound or guarding present. No CVA tenderness. Bowel sounds are unremarkable. Musculoskeletal: Normal ROM, no tenderness. Strength 5/5. Sensation intact. Radial pulses equal bilaterally 2+. Neurological: A&O x 3. CN II-XII intact, There are no obvious motor or sensory deficits. Coordination appears grossly intact. Speech is normal. Skin: Skin is warm and dry and no rashes or lesions are noted. (-) homans. No LE edema. Psychiatric: Cooperative, appropriate mood & affect, normal judgment. Limitations: no limitations Course Vital Signs 04/30/19 04/30/19 04/30/19 20:13 20:25 20:41 Temperature 98.4 F Pulse Rate 114 H 96 89 Respiratory 26 H Rate Blood Pressure 142/95 O2 Sat by Pulse 100 Oximetry 04/30/19 04/30/19 04/30/19 21:24 22:34 23:01 Temperature Pulse Rate 86 84 Respiratory 24 Rate Blood Pressure O2 Sat by Pulse Oximetry 04/30/19 23:12 Temperature 98.5 F Pulse Rate 96 Respiratory 96 H Rate Blood Pressure 126/82 O2 Sat by Pulse 96 Oximetry EKG Findings - EKG Comments: EKG Findings:: And regular rate 96 bpm, [place] interval 140 ms QRS duration 90 ms, QT/QTc is 362/457. Normal sinus rhythm with a sinus arrhythmia. No ST eleva tion or depression. Normal EKG. Medical Decision Making - Medical Decision Making 28-year-old female with history of asthma presenting for asthma exacerbation. Patient states she has had more difficulty breathing than usual for the past month. Patient denies any leg swelling or history consistent with concern for pulmonary embolism. Patient d-dimer within normal limits. Patient has extremities on examination. She also diminished air movement. After 2 treatments patient has significant improvement in air movement as well as resolved minute of extremities. Patient continues to actually well on room air. Heart rate within acceptable limits. Patient appears well no signs of respiratory distress. EKG no acute findings. Patient denies any chest pain. CXR (-) for acute process. Patient is requesting discharge. Patient will be di scharged with an oral steroid and instruction to continue rescue inhaler, nebulized albuterol home as well as her Qvar. I recommended patient follow-up with her primary care provider. Otherwise at this time patient is stable for discharge. - Lab Data Result diagrams: 04/30/19 21:12 04/30/19 21:12 Lab Results 04/30/19 04/30/19 04/30/19 Range/Units 21:12 21:12 21:12 WBC 8.9 (3.8-10.6) k/uL RBC 4.65 (3.80-5.40) m/uL Hgb 14.0 (11.4-16.0) gm/dL Hct 41.7 (34.0-46.0) % MCV 89.7 (80.0-100.0) fL MCH 30.2 (25.0-35.0) pg MCHC 33.6 (31.0-37.0) g/dL RDW 12.9 (11.5-15.5) % Plt Count 271 (150-450) k/uL Neutrophils % 61 % Lymphocytes % 27 % Monocytes % 8 % Eosinophils % 1 % Basophils % 0 % Neutrophils # 5.4 (1.3-7.7) k/uL Lymphocytes # 2.4 (1.0-4.8) k/uL Monocytes # 0.7 (0-1.0) k/uL Eosinophils # 0.1 (0-0.7) k/uL Basophils # 0.0 (0-0.2) k/uL D-Dimer 0.42 (<0.60) mg/L FEU Sodium 139 (137-145) mmol/L Potassium 4.2 (3.5-5.1) mmol/L Chloride 106 (98-107) mmol/L Carbon Dioxide 22 (22-30) mmol/L Anion Gap 11 mmol/L BUN 18 H (7-17) mg/dL Creatinine 0.84 (0.52-1.04) mg/dL Est GFR (CKD-EPI)AfAm >90 (>60 ml/min/1.73 sqM) Est GFR (CKD-EPI)NonAf >90 (>60 ml/min/1.73 sqM) Glucose 111 H (74-99) mg/dL Calcium 9.5 (8.4-10.2) mg/dL Total Bilirubin 0.3 (0.2-1.3) mg/dL AST 19 (14-36) U/L ALT 15 (9-52) U/L Alkaline Phosphatase 55 (38-126) U/L NT-Pro-B Natriuret Pep pg/mL Total Protein 7.0 (6.3-8.2) g/dL Albumin 4.2 (3.5-5.0) g/dL Urine HCG, Qual (Not Detectd) 04/30/19 04/30/19 Range/Units 21:12 21:56 WBC (3.8-10.6) k/uL RBC (3.80-5.40) m/uL Hgb (11.4-16.0) gm/dL Hct (34.0-46.0) % MCV (80.0-100.0) fL MCH (25.0-35.0) pg MCHC (31.0-37.0) g/dL RDW (11.5-15.5) % Plt Count (150-450) k/uL Neutrophils % % Lymphocytes % % Monocytes % % Eosinophils % % Basophils % % Neutrophils # (1.3-7.7) k/uL Lymphocytes # (1.0-4.8) k/uL Monocytes # (0-1.0) k/uL Eosinophils # (0-0.7) k/uL Basophils # (0-0.2) k/uL D-Dimer (<0.60) mg/L FEU Sodium (137-145) mmol/L Potassium (3.5-5.1) mmol/L Chloride (98-107) mmol/L Carbon Dioxide (22-30) mmol/L Anion Gap mmol/L BUN (7-17) mg/dL Creatinine (0.52-1.04) mg/dL Est GFR (CKD-EPI)AfAm (>60 ml/min/1.73 sqM) Est GFR (CKD-EPI)NonAf (>60 ml/min/1.73 sqM) Glucose (74-99) mg/dL Calcium (8.4-10.2) mg/dL Total Bilirubin (0.2-1.3) mg/dL AST (14-36) U/L ALT (9-52) U/L Alkaline Phosphatase (38-126) U/L NT-Pro-B Natriuret Pep 43 pg/mL Total Protein (6.3-8.2) g/dL Albumin (3.5-5.0) g/dL Urine HCG, Qual Not Detected (Not Detectd) Disposition Clinical Impression: Asthma exacerbation, Shortness of breath Disposition: HOME SELF-CARE Condition: Good Instructions (If sedation given, give patient instructions): Asthma (ED) Additional Instructions: Please use medication as discussed. Please follow-up with family doctor in the next 2 days. Please return to emergency room if the symptoms increase or worsen or for any other concerns. Prescriptions: predniSONE 20 mg PO BID 5 Days #10 tab Is patient prescribed a controlled substance at d/c from ED?: No Referrals: None,Stated [Primary Care Provider] - 1-2 days [facility] [[facility] - 1-2 days Time of Disposition: 22:58
[2019-04-30 21:37] LABS: Basophils % (A) 0 %; Eosinophils # (A) 0.1 k/uL (0-0.7); Eosinophils % (A) 1 %; HCT 41.7 % (34.0-46.0); Lymphocytes # (A) 2.4 k/uL (1.0-4.8); Lymphocytes % (A) 27 %; MCH 30.2 pg (25.0-35.0); MCHC 33.6 g/dL (31.0-37.0); MCV 89.7 fL (80.0-100.0); Mean Platelet Volume 7.2; Monocytes # (A) 0.7 k/uL (0-1.0); Monocytes % (A) 8 %; Neutrophils # (A) 5.4 k/uL (1.3-7.7); Neutrophils % (A) 61 %; Platelet Count 271 k/uL (150-450); RBC 4.65 m/uL (3.80-5.40); RDW 12.9 % (11.5-15.5); WBC 8.9 k/uL (3.8-10.6)
[2019-04-30 21:43] LABS: ALT 15 U/L (9-52); AST 19 U/L (14-36); African American GFR (CKD) >90 (>60 ml/min/1.73 sqM); Albumin 4.2 g/dL (3.5-5.0); Alkaline Phosphatase 55 U/L (38-126); Anion Gap 11 mmol/L; Blood Urea Nitrogen 18 mg/dL (7-17); Calcium 9.5 mg/dL (8.4-10.2); Carbon Dioxide 22 mmol/L (22-30); Chloride 106 mmol/L (98-107); Glucose 111 mg/dL (74-99); Potassium 4.2 mmol/L (3.5-5.1); Sodium 139 mmol/L (137-145); Total Bilirubin 0.3 mg/dL (0.2-1.3)
--- NOTE | 2019-04-30 22:08 | XR ---
EXAMINATION: XR chest 2V DATE AND TIME: 04/30/2019 9:22 PM CLINICAL INDICATION: PHH; Pain TECHNIQUE: Departmental protocol COMPARISON: 01/29/2018 FINDINGS: The overlying soft tissues are prominent. There is a 2 cm opacity lateral to the left hilum, which likely represents summation shadows of overl apping normal structures. However, the finding was not seen on the prior study. The lungs are otherwise well-expanded, and clear as seen. The pleural spaces are negative. The cardiac silhouette is not enlarged. The remainder of the mediastinal silhouette is unremarkable. The skeletal structures and soft tissues are negative for acute findings. IMPRESSION: 1. NO ACUTE PROCESS. 2. Would suggest six-week follow-up PA and lateral chest radiographs to ensure resolution of the left perihilar finding.
[2019-04-30 23:14] VITALS: BP 126/82; PULSE 96; RESP 96; TEMP 98.5
== END 2019-04-30 23:14 | disposition home or self-care (01) ==
LOC: EC 20:12
DX: J45.901 Unspecified asthma with (acute) exacerbation (principal); F25.9 Schizoaffective disorder, unspecified; F17.200 Nicotine dependence, unspecified, uncomplicated; Z88.0 Allergy status to penicillin; Z79.51 Long term (current) use of inhaled steroids; Z79.899 Other long term (current) drug therapy
CPT/HCPCS: 36415; 94640 ×2; 93005; 85379; 83880; 80053; 85025; 81025; 71046; 99285; 96374; J2930

== ENCOUNTER 2019-05-17 04:51 | Emergency (ER) | payer MEDICARE, OTHER ==
[2019-05-17] MEDS ORDERED: IPRATROPIUM-ALBUTEROL 3 ML NEB INHALATION STA (05:01)
--- NOTE | 2019-05-17 05:12 | ED ---
SOB HPI - General Chief Complaint: Shortness of Breath Stated Complaint: ANTONIA Time Seen by Provider: 05/17/19 04:58 Source: patient Mode of arrival: EMS - History of Present Illness Initial Comments: Patient is a 28-year-old female with a known history of asthma who presents the emergency department this morning for evaluation of asthma exacerbation. Patient reports that she was seen earlier in the week at the [facility] and prescribed steroids which she has been compliant with. Patient reports the weather lately has been bothering her asthma. Patient states that around 6 PM yesterday she began feeling wheezy, she has used her MDI inhaler however has had only minimal temporary relief. Patient reports previously she has had a nebulizer at home however broke and due to cost and insurance issues she's not been able to get it replaced. Patient reports that her [facility] care, the [facility] is currently working with her to get her nebulizer place. Patient reports that she received nebulizer by EMS in route to the hospital is arty feeling much better. denies any associated chest pain lightheadedness diaphoresis, fevers, productive cough. - Related Data Home Medications Medication Instructions Recorded Confirmed Albuterol Inhaler [Ventolin Hfa 1 - 2 puff INHALATION RT-Q6H PRN 04/30/19 04/30/19 Inhaler] Beclomethasone Dipropionate [Qvar 1 puff INHALATION RT-BID 04/30/19 04/30/19 80 mcg] Paliperidone IM [Invega Sustenna] 156 mg IM Q7D 04/30/19 04/30/19 Ranitidine HCl [Zantac] 150 mg PO BID 04/30/19 04/30/19 Previous Rx's Medication Instructions Recorded predniSONE 20 mg PO BID 5 Days #10 tab 04/30/19 Allergies Allergy/AdvReac Type Severity Reaction Status Date / Time amoxicillin [Amoxicillin] Allergy Swelling Verified 04/30/19 20:56 Review of Systems ROS Statement: Those systems with pertinent positive or pertinent negative responses have been documented in the HPI. ROS Other: All systems not noted in ROS Statement are negative. Past Medical History Past Medical History: Asthma Additional Past Medical History / Comment(s): multiple personality disorder, bipolar, depression History of Any Multi-Drug Resistant Organisms: None Reported Past Surgical History: Adenoidectomy, Tonsillectomy Past Anesthesia/Blood Transfusion Reactions: No Reported Reaction Past Psychological History: Anxiety, Bipolar, Depression, Schizoaffective Disorder Smoking Status: Current every day smoker Past Alcohol Use History: Rare Past Drug Use History: Marijuana - Past Family History Mother History Unknown: Yes Family Medical History: Cancer General Exam - General Exam Comments Initial Comments: Physical Exam GENERAL: Patient is well-developed and well-nourished. Patient is nontoxic and well- hydrated and is in no distress. HENT: Normocephalic, Atraumatic. EYES: PERRL, EOMI PULMONARY: Mild expiratory wheezing CARDIOVASCULAR: There is a regular rate and rhythm without any murmurs gallops or rubs. ABDOMEN: Soft and nontender with normal bowel sounds. SKIN: Skin is clear with no lesions or rashes and otherwise unremarkable. : Deferred NEUROLOGIC: Patient is alert and oriented x3. Moving all extremities spontaneously MUSCULOSKELETAL: Normal extremities with adequate strength and full range of motion. No lower extremity swelling or edema. No calf tenderness. PSYCHIATRIC: Normal psychiatric evaluation. Course Vital Signs 05/17/19 05/17/19 05/17/19 04:53 05:01 05:19 Temperature 97.9 F Pulse Rate 71 72 Respiratory 24 22 Rate Blood Pressure 136/85 O2 Sat by Pulse 97 Oximetry 05/17/19 05:25 Temperature Pulse Rate 72 Respiratory Rate Blood Pressure O2 Sat by Pulse Oximetry Medical Decision Making - Medical Decision Making The patient was seen and evaluated history was obtained from the patient history and physical exam are concerning for asthma exacerbation, repeat breathing treatment was given, chest x-rays no acute findings. Patient's symptoms resolved. Patient will be discharged home, advised to continue taking her steroids follow-up with her primary care for nebulizer Disposition Clinical Impression: Asthma exacerbation Disposition: HOME SELF-CARE Condition: Stable Instructions (If sedation given, give patient instructions): Asthma (ED) Is patient prescribed a controlled substance at d/c from ED?: No Referrals: None,Stated [Primary Care Provider] - 1-2 days
--- NOTE | 2019-05-17 05:45 | XR ---
EXAM: XR Chest, 2 Views CLINICAL HISTORY: ITS.REASON XR Reason: cough TECHNIQUE: Frontal and lateral views of the chest. COMPARISON: 04/30/19 FINDINGS: Lungs: No consolidation or mass. Pleural space: No effusion. Heart: No cardiomegaly. Mediastinum: Unremarkable. Bones/joints: No acute findings. IMPRESSION: No acute cardiopulmonary process.
[2019-05-17 06:48] VITALS: BP 115/78; PULSE 64; RESP 20; TEMP 98.2
== END 2019-05-17 06:48 | disposition home or self-care (01) ==
LOC: EC 04:51
DX: J45.901 Unspecified asthma with (acute) exacerbation (principal); F17.200 Nicotine dependence, unspecified, uncomplicated; Z79.51 Long term (current) use of inhaled steroids; Z88.0 Allergy status to penicillin
CPT/HCPCS: 71046; 94640; 99285

== ENCOUNTER 2019-05-24 17:11 | Emergency (ER) | payer MEDICARE, OTHER ==
[2019-05-24] MEDS ORDERED: IPRATROPIUM-ALBUTEROL 3 ML NEB INHALATION STA (17:48)
--- NOTE | 2019-05-24 17:58 | XR ---
EXAMINATION TYPE: XR chest 2V DATE OF EXAM: 05/24/2019 COMPARISON: 05/17/2019 HISTORY: 28-year-old female with cough and pain TECHNIQUE: PA and lateral views FINDINGS: Heart normal size. Aorta and pulmonary vasculature within normal limits. Mild interstitial prominence has a chronic appearance. No consolidation or pleural effusion. IMPRESSION: No acute cardiopulmonary process.
[2019-05-24] MEDS ORDERED: methylPREDNISolone SOD SUCCI 125 MG/2 ML VIAL IV STA (18:50)
[2019-05-24] MEDS ORDERED: cefTRIAXone IN SWFI 1,000 MG/10 ML SYRINGE IVP STA (18:59)
[2019-05-24 19:14] VITALS: BP 124/76
--- NOTE | 2019-05-24 19:23 | ED ---
General Adult HPI - General Chief complaint: Upper Respiratory Infection Stated complaint: Asthma Time Seen by Provider: 05/24/19 17:22 Source: patient Mode of arrival: ambulatory Limitations: no limitations - History of Present Illness Initial comments: Patient is a 28-year-old female with history of asthma is presenting to the emergency department with a chief complaint of a cough. Patient reports her cough started approximately 2 months ago and has not resolved. Patient reports she has developed green sputum production over the last 2-3 weeks. Patient reports shortness of breath but denies chest pain. Patient denies any nausea, vomiting or diarrhea. Patient does report chills but denies any fevers. Patient reports going to the [facility] about 2 weeks ago was prescribed a Medrol Dosepak and an antibiotic with minimal improvement. Patient was also given an albuterol rescue inhaler with minimal improvement. Patient denies sore throat, rhinorrhea, headache, Otalgia. Patient is a daily smoker. - Related Data Home Medications Medication Instructions Recorded Confirmed Albuterol Inhaler [Ventolin Hfa 1 - 2 puff INHALATION RT-Q6H PRN 04/30/19 04/30/19 Inhaler] Beclomethasone Dipropionate [Qvar 1 puff INHALATION RT-BID 04/30/19 04/30/19 80 mcg] Paliperidone IM [Invega Sustenna] 156 mg IM Q7D 04/30/19 04/30/19 Ranitidine HCl [Zantac] 150 mg PO BID 04/30/19 04/30/19 Previous Rx's Medication Instructions Recorded predniSONE 20 mg PO BID 5 Days #10 tab 04/30/19 Albuterol Nebulized [Ventolin 2.5 mg INHALATION Q4H PRN #25 nebu 05/24/19 Nebulized] Beclomethasone Dip 80 Mcg/Puff 1 puff INHALATION BID #1 inhaler 05/24/19 [Qvar 80 mcg] Allergies Allergy/AdvReac Type Severity Reaction Status Date / Time amoxicillin [Amoxicillin] Allergy Swelling Verified 05/24/19 17:12 Review of Systems ROS Statement: Those systems with pertinent positive or pertinent negative responses have been documented in the HPI. ROS Other: All systems not noted in ROS Statement are negative. Past Medical History Past Medical History: Asthma Additional Past Medical History / Comment(s): multiple personality disorder, bipolar, depression History of Any Multi-Drug Resistant Organisms: None Reported Past Surgical History: Adenoidectomy, Tonsillectomy Past Anesthesia/Blood Transfusion Reactions: No Reported Reaction Past Psychological History: Anxiety, Bipolar, Depression, Schizoaffective Disorder Smoking Status: Current every day smoker Past Alcohol Use History: Rare Past Drug Use History: Marijuana - Past Family History Mother History Unknown: Yes Family Medical History: Cancer General Exam Limitations: no limitations General appearance: alert, in no apparent distress, obese Head exam: Present: atraumatic, normocephalic, normal inspection Eye exam: Present: normal appearance, PERRL, EOMI. Absent: conjunctival injection Pupils: Present: normal accommodation ENT exam: Present: normal exam, normal oropharynx (Uvula midline, no tonsillar exudates or enlargement.), mucous membranes moist, TM's normal bilaterally, normal external ear exam Neck exam: Present: normal inspection, full ROM. Absent: lymphadenopathy Respiratory exam: Present: wheezes (Bilateral wheezing on all lung angel). Absent: chest wall tenderness Cardiovascular Exam: Present: regular rate, normal rhythm, normal heart sounds GI/Abdominal exam: Present: soft, normal bowel sounds. Absent: tenderness Extremities exam: Present: normal inspection, full ROM Back exam: Present: normal inspection, full ROM. Absent: CVA tenderness (R), CVA tenderness (L) Neurological exam: Present: alert, oriented X3 Psychiatric exam: Present: normal affect, normal mood Skin exam: Present: warm, intact, normal color Course Vital Signs 05/24/19 05/24/19 05/24/19 17:12 18:17 18:28 Temperature 97.6 F Pulse Rate 101 H 80 80 Respiratory 18 Rate Blood Pressure 119/63 O2 Sat by Pulse 98 Oximetry 05/24/19 05/24/19 19:13 19:56 Temperature 97.7 F Pulse Rate 73 77 Respiratory 18 20 Rate Blood Pressure 124/76 124/76 O2 Sat by Pulse 97 98 Oximetry Medical Decision Making - Medical Decision Making Patient is a 28-year-old female with history of asthma is presenting to emergency Department with a chief complaint of a cough. Chest x-ray is unremarkable. Patient was wheezing on initial evaluation was given a DuoNeb treatment. On reevaluation patient reports minimal improvement. Patient does not fit SIRS criteria for obtaining blood cultures and lactic acid. Patient was given some Solu-Medrol and 1 gram Rocephin. On reevaluation patient reports feeling better and is breathing better. I suspect the patient to developed an asthma exacerbation in conjunction with bronchitis. Patient does not have a fev er and imaging is unremarkable, so i have a low suspicion for pneumonia. However, considering her prolonged cough, she was given IM antibiotics. Patient is still currently on a prescribed antibiotic. Patient advised to continue taking antibiotic. I counseled the patient for smoking cessation for greater than 3 minutes. Patient will be discharged with albuterol and a steroid inhaler. Patient advised to follow-up with primary care. Strict return parameters were thoroughly discussed the patient was understanding and agreeable. Case discussed with physician. Disposition Clinical Impression: Productive cough Disposition: HOME SELF-CARE Condition: Stable Instructions (If sedation given, give patient instructions): Acute Bronchitis (ED), COPD (Chronic Obstructive Pulmonary Disease) (DC), Wheezing (ED) Additional Instructions: Continue taking prescribed medication as directed. Please follow up with primary care. Please return to emergency department if symptoms worsen. Prescriptions: Beclomethasone Dip 80 Mcg/Puff [Qvar 80 mcg] 1 puff INHALATION BID #1 inhaler Albuterol Nebulized [Ventolin Nebulized] 2.5 mg INHALATION Q4H PRN #25 nebu PRN Reason: difficulty in breathing Is patient prescribed a controlled substance at d/c from ED?: No Referrals: None,Stated [Primary Care Provider] - 1-2 days Time of Disposition: 19:31
[2019-05-24 19:57] VITALS: PULSE 77; RESP 20; TEMP 97.7
== END 2019-05-24 19:50 | disposition home or self-care (01) ==
LOC: EC 17:11
DX: R05 Cough (principal); J45.909 Unspecified asthma, uncomplicated; R68.83 Chills (without fever); F25.9 Schizoaffective disorder, unspecified; F17.200 Nicotine dependence, unspecified, uncomplicated; Z79.51 Long term (current) use of inhaled steroids; Z79.899 Other long term (current) drug therapy; Z71.6 Tobacco abuse counseling; Z88.0 Allergy status to penicillin
CPT/HCPCS: 94640; 71046; 99283; 96374; 96375; J2930; J0696

== ENCOUNTER → 2019-10-23 | Outpatient (CLI) | payer MEDICARE, OTHER ==
[2019-10-23 18:55] LABS: Prolactin 28.7 ng/mL (2.8-29.2)
== END | disposition home or self-care (01) ==
LOC: LABWHC1 11:55
PROVIDERS: ATTEND Nurse Practitioner Family
DX: Z51.81 Encounter for therapeutic drug level monitoring (principal); Z79.899 Other long term (current) drug therapy
CPT/HCPCS: 36415; 84146; 84439; 84443

== ENCOUNTER 2020-04-22 18:22 | Emergency (ER) | payer MEDICARE, OTHER ==
[2020-04-22 18:36] VITALS: TEMP 98
[2020-04-22] MEDS ORDERED: SODIUM CHLORIDE 0.9% 1,000 ML IV STA (18:41)
[2020-04-22] MEDS ORDERED: IPRATROPIUM-ALBUTEROL 3 ML NEB INHALATION STA (18:42)
--- NOTE | 2020-04-22 18:44 | ED ---
General Adult HPI - General Chief complaint: Dizziness Stated complaint: dizziness Time Seen by Provider: 04/22/20 18:35 Source: patient Mode of arrival: ambulatory Limitations: no limitations - History of Present Illness Initial comments: Patient presents the ED with multiple complaints. Patient states that she has felt lightheaded and fatigued for the past 3 days or so. Patient also states that she has felt somewhat dyspneic, and she is complaining of having "pain all over". Patient admits to having a cough, but she states that her cough is chr onic and unchanged. Patient denies trauma or injury, fever or chills, headache, focal numbness/weakness/neuro deficit, neck stiffness, sore throat, pleuritic pain, hemoptysis, palpitations, syncope, nausea/vomiting/diarrhea, bloody or melanotic stool, dysuria or urinary symptoms, or any other symptoms or complaints. - Related Data Home Medications Medication Instructions Recorded Confirmed Paliperidone IM [Invega Sustenna] 234 mg IM Q28D 04/22/20 04/22/20 Allergies Allergy/AdvReac Type Severity Reaction Status Date / Time amoxicillin [Amoxicillin] Allergy Swelling Verified 04/22/20 20:04 Review of Systems ROS Statement: Those systems with pertinent positive or pertinent negative responses have been documented in the HPI. ROS Other: All systems not noted in ROS Statement are negative. Past Medical History Past Medical History: Asthma Additional Past Medical History / Comment(s): multiple personality disorder, bipolar, depression History of Any Multi-Drug Resistant Organisms: None Reported Past Surgical History: Adenoidectomy, Tonsillectomy Past Anesthesia/Blood Transfusion Reactions: No Reported Reaction Past Psychological History: Anxiety, Bipolar, Depression, Schizoaffective Disorder Smoking Status: Current every day smoker Past Alcohol Use History: Rare Past Drug Use History: Marijuana - Past Family History Mother History Unknown: Yes Family Medical History: Cancer General Exam Limitations: no limitations General appearance: alert, in no apparent distress Head exam: Present: atraumatic, normocephalic Eye exam: Present: normal appearance, PERRL, EOMI ENT exam: Present: normal oropharynx, mucous membranes moist Neck exam: Present: other (Trachea is in midline). Absent: tenderness, meningismus Respiratory exam: Present: other (Scattered bilateral expiratory wheezes). Absent: respiratory distress, rales, rhonchi, stridor Cardiovascular Exam: Present: regular rate, normal rhythm, normal heart sounds, other (Normal radial pulses bilaterally) GI/Abdominal exam: Present: soft, other (Obese abdomen). Absent: tenderness, guarding Extremities exam: Present: other (Negative Homans sign bilaterally). Absent: tenderness, pedal edema, calf tenderness Neurological exam: Present: alert, oriented X3, CN II-XII intact. Absent: motor sensory deficit Psychiatric exam: Present: normal affect, normal mood Skin exam: Present: warm, dry, intact, normal color Course Vital Signs 04/22/20 04/22/20 04/22/20 18:32 19:19 19:26 Temperature 98 F Pulse Rate 77 80 74 Respiratory 18 16 Rate Blood Pressure 126/91 O2 Sat by Pulse 98 Oximetry - Reevaluation(s) Reevaluation #1: 04/22/20 20:36 Patient states that she is now feeling better, and she denies development of any new symptoms while in the ED. Patient remains alert and breathing comfortably with a normal room air oxygen saturation. Patient's wheezing has now improved on examination. Patient is aware of her test results, and she feels comfortable going home at this time. Patient was counseled about dizziness, asthma and myalgias. Patient was instructed to use her home albuterol inhaler as needed/as prescribed. She was clearly explained return and follow-up instructions. She was instructed to return to the ED should she develop new or worsening symptoms. She was also instructed to follow up closely with her primary care provider. She feels comfortable with this plan. EKG Findings - EKG Comments: EKG Findings:: Normal sinus rhythm, ventricular rate of 83 bpm, no ectopy, normal VA and QRS intervals, normal QT interval, normal axis, no ST or T-wave abnormality Medical Decision Making - Medical Decision Making Patient is afebrile and without leukocytosis. Patient is alert and breathing comfortably in the ED. Patient's vital signs are stable and reassuring. Pat desiree's labs, chest x-ray and EKG are all fairly unremarkable. I do not suspect an emergent medical condition. Will discharge patient home at this time. - Lab Data Result diagrams: 04/22/20 18:30 04/22/20 18:30 Lab Results 04/22/20 04/22/20 04/22/20 Range/Units 18:30 18:30 18:30 WBC 9.1 (3.8-10.6) k/uL RBC 5.09 (3.80-5.40) m/uL Hgb 15.6 (11.4-16.0) gm/dL Hct 45.7 (34.0-46.0) % MCV 89.9 (80.0-100.0) fL MCH 30.7 (25.0-35.0) pg MCHC 34.1 (31.0-37.0) g/dL RDW 13.2 (11.5-15.5) % Plt Count 228 (150-450) k/uL Neutrophils % 66 % Lymphocytes % 24 % Monocytes % 7 % Eosinophils % 1 % Basophils % 0 % Neutrophils # 6.0 (1.3-7.7) k/uL Lymphocytes # 2.2 (1.0-4.8) k/uL Monocytes # 0.7 (0-1.0) k/uL Eosinophils # 0.1 (0-0.7) k/uL Basophils # 0.0 (0-0.2) k/uL Sodium 136 L (137-145) mmol/L Potassium 4.3 (3.5-5.1) mmol/L Chloride 108 H (98-107) mmol/L Carbon Dioxide 21 L (22-30) mmol/L Anion Gap 7 mmol/L BUN 12 (7-17) mg/dL Creatinine 0.94 (0.52-1.04) mg/dL Est GFR (CKD-EPI)AfAm >90 (>60 ml/min/1.73 sqM) Est GFR (CKD-EPI)NonAf 83 (>60 ml/min/1.73 sqM) Glucose 99 (74-99) mg/dL Calcium 9.6 (8.4-10.2) mg/dL Magnesium 2.0 (1.6-2.3) mg/dL Total Bilirubin 0.6 (0.2-1.3) mg/dL AST 23 (14-36) U/L ALT 22 (4-34) U/L Alkaline Phosphatase 71 (38-126) U/L Troponin I <0.012 (0.000-0.034) ng/mL Total Protein 6.7 (6.3-8.2) g/dL Albumin 4.2 (3.5-5.0) g/dL Lipase 113 (23-300) U/L TSH 1.600 (0.465-4.680) mIU/L HCG, Qual Not Detected Urine HCG, Qual (Not Detectd) 04/22/20 Range/Units 18:30 WBC (3.8-10.6) k/uL RBC (3.80-5.40) m/uL Hgb (11.4-16.0) gm/dL Hct (34.0-46.0) % MCV (80.0-100.0) fL MCH (25.0-35.0) pg MCHC (31.0-37.0) g/dL RDW (11.5-15.5) % Plt Count (150-450) k/uL Neutrophils % % Lymphocytes % % Monocytes % % Eosinophils % % Basophils % % Neutrophils # (1.3-7.7) k/uL Lymphocytes # (1.0-4.8) k/uL Monocytes # (0-1.0) k/uL Eosinophils # (0-0.7) k/uL Basophils # (0-0.2) k/uL Sodium (137-145) mmol/L Potassium (3.5-5.1) mmol/L Chloride (98-107) mmol/L Carbon Dioxide (22-30) mmol/L Anion Gap mmol/L BUN (7-17) mg/dL Creatinine (0.52-1.04) mg/dL Est GFR (CKD-EPI)AfAm (>60 ml/min/1.73 sqM) Est GFR (CKD-EPI)NonAf (>60 ml/min/1.73 sqM) Glucose (74-99) mg/dL Calcium (8.4-10.2) mg/dL Magnesium (1.6-2.3) mg/dL Total Bilirubin (0.2-1.3) mg/dL AST (14-36) U/L ALT (4-34) U/L Alkaline Phosphatase (38-126) U/L Troponin I (0.000-0.034) ng/mL Total Protein (6.3-8.2) g/dL Albumin (3.5-5.0) g/dL Lipase (23-300) U/L TSH (0.465-4.680) mIU/L HCG, Qual Urine HCG, Qual Not Detected (Not Detectd) - Radiology Data Radiology results: report reviewed (Chest x-ray is negative) Disposition Clinical Impression: Dizziness, Asthma, Myalgia Disposition: HOME SELF-CARE Condition: Stable Instructions (If sedation given, give patient instructions): Dizziness (ED), Asthma (ED), Musculoskeletal Pain (ED) Additional Instructions: Return to the ER immediately should you develop new or worsening pain, increased shortness of breath, a fever, vomiting, feeling faint or fainting, or new or worsening symptoms. Follow up closely with your primary care provider. Is patient prescribed a controlled substance at d/c from ED?: No Referrals: None,Stated [Primary Care Provider] - 1-2 days Loida Dixon MD [REFERRING] - 1-2 days Time of Disposition: 20:44
[2020-04-22 18:58] LABS: Basophils % (A) 0 %; Eosinophils # (A) 0.1 k/uL (0-0.7); Eosinophils % (A) 1 %; HCT 45.7 % (34.0-46.0); HGB 15.6 gm/dL (11.4-16.0); Lymphocytes # (A) 2.2 k/uL (1.0-4.8); Lymphocytes % (A) 24 %; MCH 30.7 pg (25.0-35.0); MCHC 34.1 g/dL (31.0-37.0); MCV 89.9 fL (80.0-100.0); Mean Platelet Volume 7.2; Monocytes # (A) 0.7 k/uL (0-1.0); Monocytes % (A) 7 %; Neutrophils % (A) 66 %; Platelet Count 228 k/uL (150-450); RBC 5.09 m/uL (3.80-5.40); RDW 13.2 % (11.5-15.5); WBC 9.1 k/uL (3.8-10.6)
[2020-04-22 19:05] LABS: HCG,Qualitative Serum Not Detected
[2020-04-22 19:07] LABS: ALT 22 U/L (4-34); AST 23 U/L (14-36); African American GFR (CKD) >90 (>60 ml/min/1.73 sqM); Albumin 4.2 g/dL (3.5-5.0); Alkaline Phosphatase 71 U/L (38-126); Anion Gap 7 mmol/L; Blood Urea Nitrogen 12 mg/dL (7-17); Calcium 9.6 mg/dL (8.4-10.2); Carbon Dioxide 21 mmol/L (22-30); Chloride 108 mmol/L (98-107); Glucose 99 mg/dL (74-99); Non-African American GFR(CKD) 83 (>60 ml/min/1.73 sqM); Potassium 4.3 mmol/L (3.5-5.1); Sodium 136 mmol/L (137-145); Total Bilirubin 0.6 mg/dL (0.2-1.3); Total Protein 6.7 g/dL (6.3-8.2)
--- NOTE | 2020-04-22 19:11 | XR ---
EXAMINATION TYPE: XR chest 2V DATE OF EXAM: 04/22/2020 COMPARISON: Prior chest x-ray 05/24/2019 HISTORY: Dyspnea, chest pain and dizziness TECHNIQUE: Frontal and lateral views of the chest are obtained. FINDINGS: There is no focal air space opacity, pleural effusion, or pneumothorax seen. The cardiac silhouette size is within normal limits. The osseous structures are intact. IMPRESSION: No acute cardiopulmonary process.
[2020-04-22 19:26] VITALS: RESP 16
[2020-04-22 21:08] VITALS: BP 113/82; PULSE 80
== END 2020-04-22 20:50 | disposition home or self-care (01) ==
LOC: EC 18:22
DX: R42 Dizziness and giddiness (principal); J45.909 Unspecified asthma, uncomplicated; M79.10 Myalgia, unspecified site; F25.9 Schizoaffective disorder, unspecified; F17.200 Nicotine dependence, unspecified, uncomplicated; Z88.0 Allergy status to penicillin
CPT/HCPCS: 36415; 71046; 80053; 81025; 83690; 83735; 84443; 84484; 84703; 85025; 93005; 94640; 96360; 99284

== ENCOUNTER 2021-01-04 16:13 | Emergency (ER) | payer MEDICARE, OTHER ==
[2021-01-04 17:00] VITALS: BP 130/83; PULSE 78; RESP 24; TEMP 97.8
--- NOTE | 2021-01-04 17:33 | XR ---
EXAMINATION TYPE: XR chest 2V DATE OF EXAM: 01/04/2021 COMPARISON: 04/22/2020 HISTORY: Difficulty breathing TECHNIQUE: 2 views FINDINGS: Heart and mediastinum are normal. Lungs are clear. Diaphragm is normal. Bony thorax is inta ct. IMPRESSION: Normal chest. No change.
[2021-01-04 18:00] LABS: Basophils # (A) 0.1 k/uL (0-0.2); Basophils % (A) 1 %; Eosinophils # (A) 0.1 k/uL (0-0.7); Eosinophils % (A) 1 %; HCT 46.2 % (34.0-46.0); HGB 15.6 gm/dL (11.4-16.0); Lymphocytes # (A) 2.1 k/uL (1.0-4.8); Lymphocytes % (A) 24 %; MCH 30.3 pg (25.0-35.0); MCHC 33.7 g/dL (31.0-37.0); Mean Platelet Volume 7.2; Monocytes # (A) 0.7 k/uL (0-1.0); Monocytes % (A) 8 %; Neutrophils % (A) 66 %; Platelet Count 248 k/uL (150-450); RBC 5.13 m/uL (3.80-5.40); WBC 9.1 k/uL (3.8-10.6)
[2021-01-04 18:09] LABS: Partial Thromboplastin Time 25.7 sec (22.0-30.0); Prothrombin Time 10.9 sec (9.0-12.0)
[2021-01-04 18:17] LABS: ALT 27 U/L (4-34); AST 27 U/L (14-36); African American GFR (CKD) >90 (>60 ml/min/1.73 sqM); Albumin 4.2 g/dL (3.5-5.0); Alkaline Phosphatase 72 U/L (38-126); Anion Gap 9 mmol/L; Blood Urea Nitrogen 14 mg/dL (7-17); Calcium 9.6 mg/dL (8.4-10.2); Carbon Dioxide 22 mmol/L (22-30); Chloride 106 mmol/L (98-107); Glucose 95 mg/dL (74-99); Non-African American GFR(CKD) 90 (>60 ml/min/1.73 sqM); Potassium 4.5 mmol/L (3.5-5.1); Sodium 137 mmol/L (137-145); Total Bilirubin 0.6 mg/dL (0.2-1.3)
== END 2021-01-04 19:17 | disposition left against medical advice (07) ==
LOC: EC 16:13
DX: R07.9 Chest pain, unspecified (principal); R06.02 Shortness of breath; R20.0 Anesthesia of skin; Z53.21 Procedure and treatment not carried out due to patient leaving prior to being seen by health care provider
CPT/HCPCS: 36415; 71046; 80053; 84484; 85025; 85610; 85730; 87635; 93005; 99499

== ENCOUNTER 2021-03-27 00:30 | Emergency (ER) | payer MEDICARE, OTHER ==
[2021-03-27 00:44] VITALS: RESP 20; TEMP 98.3
--- NOTE | 2021-03-27 01:12 | ED ---
General Adult HPI - General Chief complaint: Vaginal Bleeding Stated complaint: Abdominal/Back Pain, Vag Bleeding Time Seen by Provider: 03/27/21 00:51 Source: patient, family Mode of arrival: ambulatory Limitations: no limitations - History of Present Illness Initial comments: This patient is a 30-year-old woman who presents to be evaluated for lower a bdominal pain and passing bright red blood per rectum. The patient states that the symptoms started 2 days ago with lower abdominal pain. She then noted that when she was passing stools she was having some blood associated. Onset/Timin -: days(s) Location: abdomen Radiation: non-radiation Quality: sharp, other (Cramping) Consistency: intermittent Improves with: none Worsens with: none Associated Symptoms: denies other symptoms Treatments Prior to Arrival: none - Related Data Home Medications Medication Instructions Recorded Confirmed Paliperidone IM [Invega Sustenna] 234 mg IM Q28D 04/22/20 12/11/20 Albuterol Inhaler [Ventolin Hfa 2 puff INHALATION RT-QID PRN 12/11/20 12/11/20 Inhaler] Allergies Allergy/AdvReac Type Severity Reaction Status Date / Time amoxicillin [Amoxicillin] Allergy Swelling Verified 03/27/21 00:44 Review of Systems ROS Statement: Those systems with pertinent positive or pertinent negative responses have been documented in the HPI. ROS Other: All systems not noted in ROS Statement are negative. Constitutional: Denies: fever, chills Respiratory: Denies: cough, dyspnea Cardiovascular: Denies: chest pain, palpitations Gastrointestinal: Reports: abdominal pain, hematochezia. Denies: nausea, vomiting, diarrhea, constipation, hematemesis, melena Genitourinary: Denies: dysuria, hematuria Musculoskeletal: Denies: back pain Skin: Denies: rash Neurological: Denies: headache, weakness, numbness Past Medical History Past Medical History: Asthma Additional Past Medical History / Comment(s): refused to share any health information related to why she's coming in for endoscopies History of Any Multi-Drug Resistant Organisms: None Reported Past Surgical History: Adenoidectomy, Tonsillectomy Past Anesthesia/Blood Transfusion Reactions: No Reported Reaction, Family History of Problems w/ Anesthesia Additional Past Anesthesia/Blood Transfusion Reaction / Comment(s): mom had some kind of problem w/anesthesia but she's not sure what Past Psychological History: Anxiety, Bipolar, Depression, Schizoaffective Disorder, Schizophrenia Smoking Status: Current every day smoker Past Alcohol Use History: None Reported Past Drug Use History: Marijuana - Past Family History Mother History Unknown: Yes Family Medical History: Cancer General Exam Limitations: no limitations General appearance: alert, in no apparent distress Head exam: Present: atraumatic, normocephalic Eye exam: Present: normal appearance. Absent: scleral icterus, conjunctival injection Respiratory exam: Present: normal lung sounds bilaterally. Absent: respiratory distress, wheezes, rales, rhonchi, stridor Cardiovascular Exam: Present: regular rate, normal rhythm, normal heart sounds. Absent: systolic murmur, diastolic murmur, rubs, gallop GI/Abdominal exam: Present: tenderness (Mild bilateral lower abdominal tenderness). Absent: distended, guarding, rebound, rigid, mass, pulsatile mass, hernia Rectal exam: Present: normal inspection, normal rectal tone, tenderness. Absent: black stool, bloody stool, fecal impaction, hemorrhoids, mass Extremities exam: Present: normal inspection, normal capillary refill. Absent: pedal edema, calf tenderness Back exam: Present: normal inspection. Absent: CVA tenderness (R), CVA tenderness (L) Neurological exam: Present: alert Skin exam: Present: warm, dry, intact, normal color. Absent: rash Course Vital Signs 03/27/21 03/27/21 00:40 02:43 Temperature 98.3 F Pulse Rate 94 91 Respiratory 20 20 Rate Blood Pressure 165/77 118/74 O2 Sat by Pulse 97 98 Oximetry Medical Decision Making - Lab Data Result diagrams: 03/27/21 01:11 03/27/21 01:11 Lab Results 03/27/21 03/27/21 03/27/21 Range/Units 01:11 01:11 01:11 WBC 9.9 (3.8-10.6) k/uL RBC 4.61 (3.80-5.40) m/uL Hgb 14.4 (11.4-16.0) gm/dL Hct 41.4 (34.0-46.0) % MCV 89.9 (80.0-100.0) fL MCH 31.2 (25.0-35.0) pg MCHC 34.7 (31.0-37.0) g/dL RDW 12.4 (11.5-15.5) % Plt Count 255 (150-450) k/uL MPV 7.1 Neutrophils % 66 % Lymphocytes % 23 % Monocytes % 8 % Eosinophils % 1 % Basophils % 1 % Neutrophils # 6.5 (1.3-7.7) k/uL Lymphocytes # 2.3 (1.0-4.8) k/uL Monocytes # 0.8 (0-1.0) k/uL Eosinophils # 0.1 (0-0.7) k/uL Basophils # 0.1 (0-0.2) k/uL Sodium (137-145) mmol/L Potassium (3.5-5.1) mmol/L Chloride (98-107) mmol/L Carbon Dioxide (22-30) mmol/L Anion Gap mmol/L BUN (7-17) mg/dL Creatinine (0.52-1.04) mg/dL Est GFR (CKD-EPI)AfAm (>60 ml/min/1.73 sqM) Est GFR (CKD-EPI)NonAf (>60 ml/min/1.73 sqM) Glucose (74-99) mg/dL Calcium (8.4-10.2) mg/dL Total Bilirubin (0.2-1.3) mg/dL AST (14-36) U/L ALT (4-34) U/L Alkaline Phosphatase (38-126) U/L Total Protein (6.3-8.2) g/dL Albumin (3.5-5.0) g/dL Amylase (30-110) U/L Lipase (23-300) U/L Urine Color Yellow Urine Appearance Cloudy H (Clear) Urine pH 6.0 (5.0-8.0) Ur Specific [place] 1.043 H (1.001-1.035) Urine Protein 1+ H (Negative) Urine Glucose (UA) Negative (Negative) Urine Ketones Trace H (Negative) Urine Blood Moderate H (Negative) Urine Nitrite Negative (Negative) Urine Bilirubin Negative (Negative) Urine Urobilinogen 3.0 (<2.0) mg/dL Ur Leukocyte Esterase Trace H (Negative) Urine RBC 2 (0-5) /hpf Urine WBC 18 H (0-5) /hpf Ur Squamous Epith Cells 5 H (0-4) /hpf Urine Mucus Few H (None) /hpf Urine HCG, Qual Not Detected (Not Detectd) Stool Occult Blood (Negative) 03/27/21 03/27/21 Range/Units 01:11 01:59 WBC (3.8-10.6) k/uL RBC (3.80-5.40) m/uL Hgb (11.4-16.0) gm/dL Hct (34.0-46.0) % MCV (80.0-100.0) fL MCH (25.0-35.0) pg MCHC (31.0-37.0) g/dL RDW (11.5-15.5) % Plt Count (150-450) k/uL MPV Neutrophils % % Lymphocytes % % Monocytes % % Eosinophils % % Basophils % % Neutrophils # (1.3-7.7) k/uL Lymphocytes # (1.0-4.8) k/uL Monocytes # (0-1.0) k/uL Eosinophils # (0-0.7) k/uL Basophils # (0-0.2) k/uL Sodium 140 (137-145) mmol/L Potassium 4.0 (3.5-5.1) mmol/L Chloride 105 (98-107) mmol/L Carbon Dioxide 27 (22-30) mmol/L Anion Gap 8 mmol/L BUN 16 (7-17) mg/dL Creatinine 0.85 (0.52-1.04) mg/dL Est GFR (CKD-EPI)AfAm >90 (>60 ml/min/1.73 sqM) Est GFR (CKD-EPI)NonAf >90 (>60 ml/min/1.73 sqM) Glucose 105 H (74-99) mg/dL Calcium 9.3 (8.4-10.2) mg/dL Total Bilirubin 0.2 (0.2-1.3) mg/dL AST 37 H (14-36) U/L ALT 50 H (4-34) U/L Alkaline Phosphatase 80 (38-126) U/L Total Protein 6.5 (6.3-8.2) g/dL Albumin 3.9 (3.5-5.0) g/dL Amylase 64 (30-110) U/L Lipase 117 (23-300) U/L Urine Color Urine Appearance (Clear) Urine pH (5.0-8.0) Ur Specific [place] (1.001-1.035) Urine Protein (Negative) Urine Glucose (UA) (Negative) Urine Ketones (Negative) Urine Blood (Negative) Urine Nitrite (Negative) Urine Bilirubin (Negative) Urine Urobilinogen (<2.0) mg/dL Ur Leukocyte Esterase (Negative) Urine RBC (0-5) /hpf Urine WBC (0-5) /hpf Ur Squamous Epith Cells (0-4) /hpf Urine Mucus (None) /hpf Urine HCG, Qual (Not Detectd) Stool Occult Blood Positive H (Negative) Disposition Clinical Impression: GI bleeding Disposition: HOME SELF-CARE Condition: Good Instructions (If sedation given, give patient instructions): Gastrointestinal Bleeding (ED) Is patient prescribed a controlled substance at d/c from ED?: No Referrals: None,Stated [Primary Care Provider] - 1-2 days
[2021-03-27 01:24] LABS: Basophils # (A) 0.1 k/uL (0-0.2); Basophils % (A) 1 %; Eosinophils # (A) 0.1 k/uL (0-0.7); Eosinophils % (A) 1 %; HCT 41.4 % (34.0-46.0); HGB 14.4 gm/dL (11.4-16.0); Lymphocytes # (A) 2.3 k/uL (1.0-4.8); Lymphocytes % (A) 23 %; MCH 31.2 pg (25.0-35.0); MCHC 34.7 g/dL (31.0-37.0); MCV 89.9 fL (80.0-100.0); Mean Platelet Volume 7.1; Monocytes # (A) 0.8 k/uL (0-1.0); Monocytes % (A) 8 %; Neutrophils # (A) 6.5 k/uL (1.3-7.7); Neutrophils % (A) 66 %; Platelet Count 255 k/uL (150-450); RBC 4.61 m/uL (3.80-5.40); RDW 12.4 % (11.5-15.5); WBC 9.9 k/uL (3.8-10.6)
[2021-03-27 01:42] LABS: ALT 50 U/L (4-34); AST 37 U/L (14-36); African American GFR (CKD) >90 (>60 ml/min/1.73 sqM); Albumin 3.9 g/dL (3.5-5.0); Alkaline Phosphatase 80 U/L (38-126); Amylase 64 U/L (30-110); Anion Gap 8 mmol/L; Blood Urea Nitrogen 16 mg/dL (7-17); Calcium 9.3 mg/dL (8.4-10.2); Carbon Dioxide 27 mmol/L (22-30); Chloride 105 mmol/L (98-107); Glucose 105 mg/dL (74-99); Lipase 117 U/L (23-300); Non-African American GFR(CKD) >90 (>60 ml/min/1.73 sqM); Sodium 140 mmol/L (137-145); Total Bilirubin 0.2 mg/dL (0.2-1.3); Total Protein 6.5 g/dL (6.3-8.2)
[2021-03-27 02:16] LABS: Appearance,Urine Cloudy (Clear); Bilirubin,Urine Negative (Negative); Blood,Urine Moderate (Negative); Color,Urine Yellow; Glucose,Urine (UA) Negative (Negative); Ketones,Urine Trace (Negative); Leukocyte Esterase,Urine Trace (Negative); Mucus,Urine Few /hpf; Nitrite,Urine Negative (Negative); Protein,Urine 1+ (Negative); RBC,Urine 2 /hpf (0-5); Specific Gravity,Urine 1.043 (1.001-1.035); Squamous Epithelial Cell,Urine 5 /hpf (0-4); WBC,Urine 18 /hpf (0-5)
[2021-03-27 02:44] VITALS: BP 118/74; PULSE 91
--- NOTE | 2021-03-27 02:52 | CT ---
EXAMINATION TYPE: CT abdomen pelvis wo con DATE OF EXAM: 03/27/2021 COMPARISON: 10/18/2013 HISTORY: abd and back pain with vaginal bleeding CT DLP: 2052 mGycm Automated exposure control for dose reduction was used. Images obtained from the diaphragm to the floor the pelvis with no contrast. The lung bases are clear. There is no pleural effusion. Heart size is normal. There is no pericardial effusion. Liver is intact. The bile ducts are not dilated. Spleen is large and measures almost 13 cm. Stomach i s intact. There is no pancreatic mass. The gallbladder is contracted. There is no adrenal mass. Kidneys show satisfactory contrast opacification. There is no hydronephrosi s. Ureters are not dilated. There is no retroperitoneal adenopathy. Bladder distends smoothly. There is no inguinal hernia. Uterus is anteverted. There is no evidence of a pelvic mass. There is no mesenteric edema. There is no ascites or free air. There is no bowel obstruction. Appendi x appears normal. The lumbar vertebra have normal spacing and alignment. There is no compression fracture. The bony pel vis is intact. Hip joints are intact. IMPRESSION: No sign of acute abdomen and pelvis. Normal appendix. There is mild splenomegaly. Spleen is increased slightly compared to old exam.
== END 2021-03-27 03:27 | disposition home or self-care (01) ==
LOC: EC 00:30
DX: K92.2 Gastrointestinal hemorrhage, unspecified (principal); J45.909 Unspecified asthma, uncomplicated; F31.9 Bipolar disorder, unspecified; F25.9 Schizoaffective disorder, unspecified; F12.90 Cannabis use, unspecified, uncomplicated; F17.200 Nicotine dependence, unspecified, uncomplicated; Z79.51 Long term (current) use of inhaled steroids; Z88.0 Allergy status to penicillin
CPT/HCPCS: 36415; 74176; 80053; 81001; 81025; 82150; 82272; 83690; 85025; 87086; 99284

== ENCOUNTER 2021-09-19 16:22 | Emergency (ER) | payer MEDICARE, OTHER ==
[2021-09-19 17:22] VITALS: TEMP 98.4
[2021-09-19] MEDS ORDERED: DEXAMETHASONE SOD PHOSPHATE 10 MG/ML 1 ML VIAL IM STA (18:43)
[2021-09-19] MEDS ORDERED: ALBUTEROL HFA INHALER INHALATION STA (18:43)
--- NOTE | 2021-09-19 18:49 | ED ---
URI HPI - General Chief Complaint: Upper Respiratory Infection Stated Complaint: congestion, body aches Time Seen by Provider: 09/19/21 18:22 Source: patient, RN notes reviewed Mode of arrival: ambulatory Limitations: no limitations - History of Present Illness Initial Comments: Patient is a 31-year-old female that presents to the emergency department c omplaining of 2 months of cough upper respiratory tract symptoms. She notes she finally came to the emergency room to get evaluated. She notes the cough is the most concerning aspect. She is otherwise well-appearing. She denied other issues or complaints. Patient denied chest pain headache nausea vomiting diarrhea constipation fever fatigue chills. - Related Data Home Medications Medication Instructions Recorded Confirmed Paliperidone IM [Invega Sustenna] 234 mg IM Q28D 04/22/20 12/11/20 Albuterol Inhaler [Ventolin Hfa 2 puff INHALATION RT-QID PRN 12/11/20 12/11/20 Inhaler] Previous Rx's Medication Instructions Recorded Azithromycin [Zithromax] 500 mg PO DAILY #5 tab 09/19/21 predniSONE 50 mg PO DAILY #5 tab 09/19/21 Allergies Allergy/AdvReac Type Severity Reaction Status Date / Time amoxicillin [Amoxicillin] Allergy Swelling Verified 09/19/21 17:22 Review of Systems ROS Statement: Those systems with pertinent positive or pertinent negative responses have been documented in the HPI. ROS Other: All systems not noted in ROS Statement are negative. Past Medical History Past Medical History: Asthma Additional Past Medical History / Comment(s): refused to share any health information related to why she's coming in for endoscopies History of Any Multi-Drug Resistant Organisms: None Reported Past Surgical History: Adenoidectomy, Tonsillectomy Past Anesthesia/Blood Transfusion Reactions: No Reported Reaction, Family History of Problems w/ Anesthesia Additional Past Anesthesia/Blood Transfusion Reaction / Comment(s): mom had some kind of problem w/anesthesia but she's not sure what Past Psychological History: Anxiety, Bipolar, Depression, Schizoaffective Disorder, Schizophrenia Smoking Status: Current every day smoker Past Alcohol Use History: None Reported Past Drug Use History: Marijuana - Past Family History Mother History Unknown: Yes Family Medical History: Cancer General Exam Limitations: no limitations General appearance: alert, in no apparent distress, obese (Morbidly) Head exam: Present: atraumatic, normocephalic, normal inspection Eye exam: Present: normal appearance, PERRL, EOMI. Absent: scleral icterus, conjunctival injection, periorbital swelling ENT exam: Present: normal exam, mucous membranes moist Neck exam: Present: normal inspection. Absent: tenderness, meningismus, lymphadenopathy Respiratory exam: Present: rhonchi (Right upper and middle lobe.). Absent: respiratory distress, wheezes, rales, stridor Cardiovascular Exam: Present: regular rate, normal rhythm, normal heart sounds. Absent: systolic murmur, diastolic murmur, rubs, gallop, clicks Extremities exam: Present: normal inspection, full ROM, normal capillary refill. Absent: tenderness, pedal edema, joint swelling, calf tenderness Neurological exam: Present: alert, oriented X3 Psychiatric exam: Present: normal affect, normal mood Skin exam: Present: warm, dry, intact, normal color. Absent: rash Course Vital Signs 09/19/21 09/19/21 17:19 18:34 Temperature 98.4 F Pulse Rate 71 Respiratory 20 16 Rate Blood Pressure 96/55 O2 Sat by Pulse 96 Oximetry Medical Decision Making - Medical Decision Making 31-year-old female complaining of cough and upper respiratory tract symptoms for 2 months. Patient does not meet criteria for monoclonal antibodies given duration of symptoms. 10 mg of Decadron, albuterol inhaler ordered. Antibiotics and steroid was sent to pharmacy. Case discussed with Dr. Batres. - Lab Data Lab Results 09/19/21 Range/Units 17:25 Coronavirus (PCR) Detected A (Not Detectd) Disposition Clinical Impression: COVID Disposition: HOME SELF-CARE Condition: Stable Instructions (If sedation given, give patient instructions): Coronavirus Disease 2019 (COVID-19) Additional Instructions: Please return to the Emergency Department if symptoms worsen or any other concerns. Take antibiotic and steroid as prescribed. Follow-up with primary care in 1-2 days. Is patient prescribed a controlled substance at d/c from ED?: No Referrals: None,Stated [Primary Care Provider] - 1-2 days Time of Disposition: 18:48
[2021-09-19 20:13] VITALS: BP 148/89; PULSE 89; RESP 18
== END 2021-09-19 20:13 | disposition home or self-care (01) ==
LOC: EC 16:22
DX: U07.1 COVID-19 (principal); J45.909 Unspecified asthma, uncomplicated; F41.9 Anxiety disorder, unspecified; F31.9 Bipolar disorder, unspecified; F25.9 Schizoaffective disorder, unspecified; F17.200 Nicotine dependence, unspecified, uncomplicated; F12.90 Cannabis use, unspecified, uncomplicated; Z88.0 Allergy status to penicillin
CPT/HCPCS: 99283; 96372; 94640; 87635; J1100

== ENCOUNTER 2021-12-26 21:12 | Emergency (ER) | payer MEDICARE, OTHER ==
[2021-12-26 21:25] VITALS: PULSE 105; RESP 18; TEMP 98.9
--- NOTE | 2021-12-26 23:25 | ED ---
General Adult HPI - General Chief complaint: ENT Stated complaint: Sore Throat,Hugh.Foot/Leg Swelling,In Quicker Time Seen by Provider: 12/26/21 22:04 Source: patient, RN notes reviewed Mode of arrival: ambulatory - History of Present Illness Initial comments: 31-year-old female presents to the emergency department for evaluation of multiple complaints. Patient states she has had bilateral lower extremity edema for months with her right leg more discolored than the left. Also complains of congested, productive cough. States she has had palpitations as well. Patient has had these issues for months and they occur intermittently. Reports recent mouth sores though none currently. Patient is concerned about esophageal cancer after googling her symptoms. Denies fever, chills, headache, blurry vision, chest tightness, difficulty breathing, shortness of breath, abdominal pain, nausea, vomiting, diarrhea, or dysuria. - Related Data Home Medications Medication Instructions Recorded Confirmed Paliperidone IM [Invega Sustenna] 234 mg IM Q28D 04/22/20 12/11/20 Albuterol Inhaler [Ventolin Hfa 2 puff INHALATION RT-QID PRN 12/11/20 12/11/20 Inhaler] Previous Rx's Medication Instructions Recorded Albuterol Sulfate [Albuterol 2 puff PO Q6H #8.5 gm 09/19/21 Sulfate Hfa] Azithromycin [Zithromax] 500 mg PO DAILY #5 tab 09/19/21 Ipratropium-Albuterol Nebulize 3 ml INHALATION QID #75 ml 09/19/21 [Duoneb 0.5 mg-3 mg/3 ml Soln] predniSONE 50 mg PO DAILY #5 tab 09/19/21 Allergies Allergy/AdvReac Type Severity Reaction Status Date / Time amoxicillin [Amoxicillin] Allergy Swelling Verified 12/26/21 21:25 Review of Systems ROS Statement: Those systems with pertinent positive or pertinent negative responses have been documented in the HPI. ROS Other: All systems not noted in ROS Statement are negative. Past Medical History Past Medical History: Asthma Additional Past Medical History / Comment(s): refused to share any health information related to why she's coming in for endoscopies History of Any Multi-Drug Resistant Organisms: None Reported Past Surgical History: Adenoidectomy, Tonsillectomy Past Anesthesia/Blood Transfusion Reactions: No Reported Reaction, Family History of Problems w/ Anesthesia Additional Past Anesthesia/Blood Transfusion Reaction / Comment(s): mom had some kind of problem w/anesthesia but she's not sure what Past Psychological History: Anxiety, Bipolar, Depression, Schizoaffective Disorder, Schizophrenia Smoking Status: Current every day smoker Past Alcohol Use History: None Reported Past Drug Use History: Marijuana - Past Family History Mother History Unknown: Yes Family Medical History: Cancer General Exam Limitations: no limitations (Well-developed, well-nourished female in no acute distress. Initial temperature 98.9, pulse 105, respirations 18, blood pressure 126 per 79, pulse ox 99% on room air.) General appearance: alert, in no apparent distress Eye exam: Present: normal appearance, PERRL, EOMI. Absent: scleral icterus, conjunctival injection, periorbital swelling, periorbital tenderness ENT exam: Present: normal exam, normal oropharynx, mucous membranes moist, TM's normal bilaterally Expanded Mouth exam: Present: normal external inspection Throat exam: normal inspection Neck exam: Present: normal inspection, full ROM. Absent: tenderness, meningismus, lymphadenopathy Respiratory exam: Present: normal lung sounds bilaterally. Absent: respiratory distress, wheezes, rales, rhonchi, stridor, chest wall tenderness Cardiovascular Exam: Present: regular rate, tachycardia, normal heart sounds GI/Abdominal exam: Present: soft, normal bowel sounds. Absent: distended, tenderness, guarding, rebound, rigid Right Knee exam: Present: normal inspection, full ROM Lower Leg exam: Present: normal inspection, full ROM, swelling. Absent: erythema, palpable cord, Homans' sign Ankle exam: Present: full ROM, swelling. Absent: normal inspection Foot/Toe exam: Present: tenderness, swelling. Absent: normal inspection (reddish discoloration to right foot and ankle), full ROM Neurovascular tendon exam: Present: no vascular compromise. Absent: pulse deficit, abnormal cap refill, motor deficit, sensory deficit, tendon deficit Back exam: Absent: CVA tenderness (R), CVA tenderness (L) Neurological exam: Present: alert, oriented X3, CN II-XII intact Psychiatric exam: Present: normal affect, normal mood Skin exam: Present: warm, dry, intact, normal color Course Vital Signs 12/26/21 12/27/21 21:21 01:50 Temperature 98.9 F Pulse Rate 105 H 105 H Respiratory 18 18 Rate Blood Pressure 126/79 130/87 O2 Sat by Pulse 99 99 Oximetry - Reevaluation(s) Reevaluation #1: 12/27/21 01:00 Patient is updated on results and findings from workup. She is reassured and encouraged to establish with PCP. Medical Decision Making - Medical Decision Making 31-year-old female with no significant past medical history and no primary care provider presents to the emergency department for evaluation of multiple complaints that have been ongoing for many months. Upon exam, patient is well- appearing and in no acute distress. She is tolerating oral intake without difficulty. Her complaints are chronic in nature including BLE edema and discoloration, occasional palpitations, and recurrent mouth sores. Laboratory studies were reviewed and are unremarkable. Chest x-ray is negative. Venous Doppler study shows no evidence of DVT. Patient was reassured of findings, but strongly encouraged to establish with a PCP for ongoing continuity of care. Return parameters discussed in detail. Patient and family verbalized understanding and agree with this plan. Attending: Ever. - Lab Data Result diagrams: 12/26/21 23:39 12/27/21 00:30 Lab Results 12/26/21 12/26/21 12/27/21 Range/Units 23:39 23:39 00:30 WBC 9.3 (3.8-10.6) k/uL RBC 4.41 (3.80-5.40) m/uL Hgb 13.4 (11.4-16.0) gm/dL Hct 40.8 (34.0-46.0) % MCV 92.5 (80.0-100.0) fL MCH 30.5 (25.0-35.0) pg MCHC 32.9 (31.0-37.0) g/dL RDW 12.9 (11.5-15.5) % Plt Count 296 (150-450) k/uL MPV 8.9 Neutrophils % 65 % Lymphocytes % 21 % Monocytes % 10 % Eosinophils % 1 % Basophils % 0 % Neutrophils # 6.1 (1.3-7.7) k/uL Lymphocytes # 2.0 (1.0-4.8) k/uL Monocytes # 0.9 (0-1.0) k/uL Eosinophils # 0.1 (0-0.7) k/uL Basophils # 0.0 (0-0.2) k/uL Sodium 136 L (137-145) mmol/L Potassium 4.3 (3.5-5.1) mmol/L Chloride 107 (98-107) mmol/L Carbon Dioxide 22 (22-30) mmol/L Anion Gap 7 mmol/L BUN 15 (7-17) mg/dL Creatinine 0.82 (0.52-1.04) mg/dL Est GFR (CKD-EPI)AfAm >90 (>60 ml/min/1.73 sqM) Est GFR (CKD-EPI)NonAf >90 (>60 ml/min/1.73 sqM) Glucose 105 H (74-99) mg/dL Calcium 9.2 (8.4-10.2) mg/dL Total Bilirubin 0.6 (0.2-1.3) mg/dL AST 24 (14-36) U/L ALT 27 (4-34) U/L Alkaline Phosphatase 67 (38-126) U/L Troponin I <0.012 (0.000-0.034) ng/mL Total Protein 6.8 (6.3-8.2) g/dL Albumin 3.8 (3.5-5.0) g/dL - EKG Data EKG shows normal: sinus rhythm Rate: normal EKG Comments: EKG was obtained at 2329 and shows sinus rhythm with incomplete right branch block. Ventricular rate 89, NJ interval 157, QRS duration 103, QT/QTC 358/405. Interpretation borderline ECG. - Radiology Data Radiology results: report reviewed, image reviewed Two-view chest x-ray was obtained. Report was reviewed in its entirety. Impression per Dr. Ortiz is normal chest. No change. Venous Doppler study of the lateral lower extremities was obtained. Report was reviewed in its entirety. Impression per Dr. Ortiz is no sign of deep vein thrombosis in both legs. Disposition Clinical Impression: Bilateral lower extremity edema, Palpitations with regular cardiac rhythm, Pharyngitis Disposition: HOME SELF-CARE Condition: Stable Instructions (If sedation given, give patient instructions): Heart Palpitations (ED), Pharyngitis (ED), Leg Edema (ED) Additional Instructions: It is important to establish with a primary care provider for further evaluation and treatment. Your laboratory studies are normal and your ultrasound shows no evidence of blood clot. Your chest xray is clear. Consider wear compression stockings for leg swelling. Minimize sodium intake. Gargle with warm salt water to soothe sore throat and mouth discomfort. May take Tylenol or Motrin if needed for pain. Return to the emergency department with any new, worsening, or concerning symptoms. Is patient prescribed a controlled substance at d/c from ED?: No Referrals: None,Stated [Primary Care Provider] - 1-2 days
--- NOTE | 2021-12-26 23:29 | XR ---
EXAMINATION TYPE: XR chest 2V DATE OF EXAM: 12/26/2021 COMPARISON: 01/04/2021 HISTORY: Chest pain TECHNIQUE: 2 views FINDINGS: Heart and mediastinum are normal. Lungs are clear. Diaphragm is normal. Bony thorax appears normal. IMPRESSION: Normal chest. No change.
[2021-12-26 23:59] LABS: Basophils % (A) 0 %; Eosinophils # (A) 0.1 k/uL (0-0.7); Eosinophils % (A) 1 %; HCT 40.8 % (34.0-46.0); HGB 13.4 gm/dL (11.4-16.0); Lymphocytes % (A) 21 %; MCH 30.5 pg (25.0-35.0); MCHC 32.9 g/dL (31.0-37.0); MCV 92.5 fL (80.0-100.0); Mean Platelet Volume 8.9; Monocytes # (A) 0.9 k/uL (0-1.0); Monocytes % (A) 10 %; Neutrophils # (A) 6.1 k/uL (1.3-7.7); Neutrophils % (A) 65 %; Platelet Count 296 k/uL (150-450); RBC 4.41 m/uL (3.80-5.40); RDW 12.9 % (11.5-15.5); WBC 9.3 k/uL (3.8-10.6)
--- NOTE | 2021-12-27 00:36 | US ---
EXAMINATION TYPE: US venous doppler duplex LE DATE OF EXAM: 12/27/2021 12:14 AM COMPARISON: NONE CLINICAL HISTORY: BLE edema. Bilateral lower extremity edema. No hx of DVT per patient. SIDE PERFORMED: Bilateral TECHNIQUE: The lower extremity deep venous system is examined utilizing real time linear array sonog sudeep with graded compression, doppler sonography and color-flow sonography. VESSELS IMAGED: Common Femoral Vein Deep Femoral Vein Greater Saphenous Vein * Femoral Vein Popliteal Vein Small Saphenous Vein * Proximal Calf Veins (* superficial vessels) Limited due to patient body habitus/pannus. Right Leg: No evidence of DVT at this time. Left Leg: No evidence of DVT at this time. Duplicate distal popliteal vein noted. IMPRESSION: No sign of vein thrombosis in both legs.
[2021-12-27 00:59] LABS: ALT 27 U/L (4-34); AST 24 U/L (14-36); African American GFR (CKD) >90 (>60 ml/min/1.73 sqM); Albumin 3.8 g/dL (3.5-5.0); Alkaline Phosphatase 67 U/L (38-126); Anion Gap 7 mmol/L; Blood Urea Nitrogen 15 mg/dL (7-17); Calcium 9.2 mg/dL (8.4-10.2); Carbon Dioxide 22 mmol/L (22-30); Chloride 107 mmol/L (98-107); Glucose 105 mg/dL (74-99); Non-African American GFR(CKD) >90 (>60 ml/min/1.73 sqM); Potassium 4.3 mmol/L (3.5-5.1); Sodium 136 mmol/L (137-145); Total Bilirubin 0.6 mg/dL (0.2-1.3); Total Protein 6.8 g/dL (6.3-8.2)
[2021-12-27 01:51] VITALS: BP 130/87
== END 2021-12-27 01:51 | disposition home or self-care (01) ==
LOC: EC 21:12
DX: J02.9 Acute pharyngitis, unspecified (principal); R60.0 Localized edema; R00.2 Palpitations; J45.909 Unspecified asthma, uncomplicated; F17.200 Nicotine dependence, unspecified, uncomplicated; F12.90 Cannabis use, unspecified, uncomplicated; Z79.52 Long term (current) use of systemic steroids; Z79.51 Long term (current) use of inhaled steroids
CPT/HCPCS: 36415; 71046; 80053; 84484; 85025; 93005; 93970; 99285

== ENCOUNTER 2022-01-13 09:27 | Emergency (ER) | payer MEDICARE, OTHER ==
[2022-01-13 09:59] LABS: Basophils # (A) 0.1 k/uL (0-0.2); Basophils % (A) 1 %; Eosinophils # (A) 0.2 k/uL (0-0.7); Eosinophils % (A) 2 %; HCT 42.2 % (34.0-46.0); HGB 13.9 gm/dL (11.4-16.0); Lymphocytes # (A) 2.3 k/uL (1.0-4.8); Lymphocytes % (A) 22 %; MCH 30.4 pg (25.0-35.0); MCV 92.3 fL (80.0-100.0); Mean Platelet Volume 7.2; Monocytes # (A) 0.7 k/uL (0-1.0); Monocytes % (A) 7 %; Neutrophils # (A) 6.9 k/uL (1.3-7.7); Neutrophils % (A) 67 %; Platelet Count 289 k/uL (150-450); RBC 4.58 m/uL (3.80-5.40); RDW 12.3 % (11.5-15.5); WBC 10.3 k/uL (3.8-10.6)
[2022-01-13 10:09] LABS: ALT 26 U/L (4-34); AST 26 U/L (14-36); African American GFR (CKD) >90 (>60 ml/min/1.73 sqM); Albumin 3.6 g/dL (3.5-5.0); Alkaline Phosphatase 61 U/L (38-126); Anion Gap 7 mmol/L; Blood Urea Nitrogen 15 mg/dL (7-17); Calcium 8.7 mg/dL (8.4-10.2); Carbon Dioxide 22 mmol/L (22-30); Chloride 105 mmol/L (98-107); Glucose 97 mg/dL (74-99); Lipase 126 U/L (23-300); Non-African American GFR(CKD) >90 (>60 ml/min/1.73 sqM); Potassium 4.4 mmol/L (3.5-5.1); Sodium 134 mmol/L (137-145); Total Bilirubin 0.6 mg/dL (0.2-1.3); Total Protein 6.5 g/dL (6.3-8.2)
[2022-01-13 10:13] LABS: INR 0.9 (<1.2); Partial Thromboplastin Time 25.2 sec (22.0-30.0)
[2022-01-13 10:26] LABS: HCG,Quantitative Serum <2.4 mIU/mL
[2022-01-13] MEDS ORDERED: MORPHINE SULFATE 4 MG/ML SYRINGE IV STA (10:38)
[2022-01-13] MEDS ORDERED: SODIUM CHLORIDE 0.9% 1,000 ML IV STA (10:38)
--- NOTE | 2022-01-13 10:44 | ED ---
General Adult HPI - General Chief complaint: Abdominal Pain Stated complaint: rt groin pain, nausea Time Seen by Provider: 01/13/22 09:29 Source: patient, EMS Mode of arrival: EMS Limitations: no limitations - History of Present Illness Initial comments: Dictation was produced using [employer] dictation software. please excuse any grammatical, word or spelling errors. Chief Complaint: 31-year-old female presents emergency department for acute on chronic right-sided flank pain History of Present Illness: 31-year-old female she presents to the emergency for right-sided flank pain. Patient states she has history of chronic pain to that side. She states that however felt acutely worsened starting at 2 AM this morning. States that it is episodic and also constant at the same time. Complains that she does have associated nausea. Patient denies ever having had symptoms towards the anterior portion of her abdomen. Patient states she could be . Denies any vaginal discharge or vaginal bleeding. Denies any urinary symptoms. She has no history of kidney stones. No constitutional symptoms. She was brought in by EMS. The ROS documented in this emergency department record has been reviewed and confirmed by me. Those systems with pertinent positive or negative responses have been documented in the HPI. All other systems are other negative and/or noncontributory. PHYSICAL EXAM: General Impression: Alert and oriented x3, acute distress secondary to pain HEENT: Normocephalic atraumatic, extra-ocular movements intact, pupils equal and reactive to light bilaterally, mucous membranes moist. Cardiovascular: Heart regular rate and rhythm Chest: Able to complete full sentences, no retractions, no tachypnea Abdomen: abdomen soft, mild tenderness to the right lower abdomen, non- distended, no organomegaly Musculoskeletal: Pulses present and equal in all extremities, no peripheral edema Motor: no focal deficits noted Neurological: CN II-XII grossly intact, no focal motor or sensory deficits noted Skin: Intact with no visualized rashes Psych: Normal affect and mood ED course: Patient is a 31-year-old female she presents emergency Department with right-sided flank and abdominal pain. She states that she has been chronically however she is appears acute exacerbation since 2 AM this morning. Vital signs upon arrival are within acceptable limits. Patient is in acute distress at the bedside. Limited evaluation obtained. CBC, coag panel, metabolic panel is unremarkable. test negative. Urinalysis is negative. Computed tomography scan and pelvis without contrast shows no acute processes. There is emergency department for approximately 3 hours. She is reevaluated bedside at 12:50 PM found to be stable medical condition. She does not appear to be in any distress. Patient given referral to outpatient primary care doctor. Patient also given contact information for gynecology. - Related Data Home Medications Medication Instructions Recorded Confirmed No Known Home Medications 01/13/22 01/13/22 Allergies Allergy/AdvReac Type Severity Reaction Status Date / Time amoxicillin [Amoxicillin] Allergy Anaphylaxis Verified 01/13/22 10:33 Review of Systems ROS Statement: Those systems with pertinent positive or pertinent negative responses have been documented in the HPI. ROS Other: All systems not noted in ROS Statement are negative. Past Medical History Past Medical History: Asthma Additional Past Medical History / Comment(s): refused to share any health i nformation related to why she's coming in for endoscopies History of Any Multi-Drug Resistant Organisms: None Reported Past Surgical History: Adenoidectomy, Tonsillectomy Past Anesthesia/Blood Transfusion Reactions: No Reported Reaction, Family History of Problems w/ Anesthesia Additional Past Anesthesia/Blood Transfusion Reaction / Comment(s): mom had some kind of problem w/anesthesia but she's not sure what Past Psychological History: Anxiety, Bipolar, Depression, Panic Disorder, PTSD, Schizoaffective Disorder, Schizophrenia Smoking Status: Current every day smoker Past Alcohol Use History: None Reported Past Drug Use History: Marijuana - Past Family History Mother History Unknown: Yes Family Medical History: Cancer General Exam Limitations: no limitations Course Vital Signs 01/13/22 01/13/22 01/13/22 09:28 10:45 11:35 Temperature 98.7 F Pulse Rate 91 84 97 Respiratory 20 18 24 Rate Blood Pressure 130/87 112/66 132/88 O2 Sat by Pulse 98 96 98 Oximetry 01/13/22 12:26 Temperature Pulse Rate 76 Respiratory 18 Rate Blood Pressure 115/66 O2 Sat by Pulse 96 Oximetry Medical Decision Making - Lab Data Result diagrams: 01/13/22 09:52 01/13/22 09:52 Lab Results 01/13/22 01/13/22 01/13/22 Range/Units 09:52 09:52 09:52 WBC 10.3 (3.8-10.6) k/uL RBC 4.58 (3.80-5.40) m/uL Hgb 13.9 (11.4-16.0) gm/dL Hct 42.2 (34.0-46.0) % MCV 92.3 (80.0-100.0) fL MCH 30.4 (25.0-35.0) pg MCHC 33.0 (31.0-37.0) g/dL RDW 12.3 (11.5-15.5) % Plt Count 289 (150-450) k/uL MPV 7.2 Neutrophils % 67 % Lymphocytes % 22 % Monocytes % 7 % Eosinophils % 2 % Basophils % 1 % Neutrophils # 6.9 (1.3-7.7) k/uL Lymphocytes # 2.3 (1.0-4.8) k/uL Monocytes # 0.7 (0-1.0) k/uL Eosinophils # 0.2 (0-0.7) k/uL Basophils # 0.1 (0-0.2) k/uL PT 10.0 (9.0-12.0) sec INR 0.9 (<1.2) APTT 25.2 (22.0-30.0) sec Sodium 134 L (137-145) mmol/L Potassium 4.4 (3.5-5.1) mmol/L Chloride 105 (98-107) mmol/L Carbon Dioxide 22 (22-30) mmol/L Anion Gap 7 mmol/L BUN 15 (7-17) mg/dL Creatinine 0.76 (0.52-1.04) mg/dL Est GFR (CKD-EPI)AfAm >90 (>60 ml/min/1.73 sqM) Est GFR (CKD-EPI)NonAf >90 (>60 ml/min/1.73 sqM) Glucose 97 (74-99) mg/dL Calcium 8.7 (8.4-10.2) mg/dL Total Bilirubin 0.6 (0.2-1.3) mg/dL AST 26 (14-36) U/L ALT 26 (4-34) U/L Alkaline Phosphatase 61 (38-126) U/L Total Protein 6.5 (6.3-8.2) g/dL Albumin 3.6 (3.5-5.0) g/dL Lipase 126 (23-300) U/L HCG, Quant <2.4 mIU/mL Urine Color Urine Appearance (Clear) Urine pH (5.0-8.0) Ur Specific [place] (1.001-1.035) Urine Protein (Negative) Urine Glucose (UA) (Negative) Urine Ketones (Negative) Urine Blood (Negative) Urine Nitrite (Negative) Urine Bilirubin (Negative) Urine Urobilinogen (<2.0) mg/dL Ur Leukocyte Esterase (Negative) Urine WBC (0-5) /hpf Ur Squamous Epith Cells (0-4) /hpf Urine Bacteria (None) /hpf Urine Mucus (None) /hpf 01/13/22 Range/Units 11:13 WBC (3.8-10.6) k/uL RBC (3.80-5.40) m/uL Hgb (11.4-16.0) gm/dL Hct (34.0-46.0) % MCV (80.0-100.0) fL MCH (25.0-35.0) pg MCHC (31.0-37.0) g/dL RDW (11.5-15.5) % Plt Count (150-450) k/uL MPV Neutrophils % % Lymphocytes % % Monocytes % % Eosinophils % % Basophils % % Neutrophils # (1.3-7.7) k/uL Lymphocytes # (1.0-4.8) k/uL Monocytes # (0-1.0) k/uL Eosinophils # (0-0.7) k/uL Basophils # (0-0.2) k/uL PT (9.0-12.0) sec INR (<1.2) APTT (22.0-30.0) sec Sodium (137-145) mmol/L Potassium (3.5-5.1) mmol/L Chloride (98-107) mmol/L Carbon Dioxide (22-30) mmol/L Anion Gap mmol/L BUN (7-17) mg/dL Creatinine (0.52-1.04) mg/dL Est GFR (CKD-EPI)AfAm (>60 ml/min/1.73 sqM) Est GFR (CKD-EPI)NonAf (>60 ml/min/1.73 sqM) Glucose (74-99) mg/dL Calcium (8.4-10.2) mg/dL Total Bilirubin (0.2-1.3) mg/dL AST (14-36) U/L ALT (4-34) U/L Alkaline Phosphatase (38-126) U/L Total Protein (6.3-8.2) g/dL Albumin (3.5-5.0) g/dL Lipase (23-300) U/L HCG, Quant mIU/mL Urine Color Yellow Urine Appearance Cloudy H (Clear) Urine pH 5.5 (5.0-8.0) Ur Specific [place] 1.013 (1.001-1.035) Urine Protein Negative (Negative) Urine Glucose (UA) Negative (Negative) Urine Ketones Negative (Negative) Urine Blood Negative (Negative) Urine Nitrite Negative (Negative) Urine Bilirubin Negative (Negative) Urine Urobilinogen <2.0 (<2.0) mg/dL Ur Leukocyte Esterase Negative (Negative) Urine WBC 2 (0-5) /hpf Ur Squamous Epith Cells 8 H (0-4) /hpf Urine Bacteria Moderate H (None) /hpf Urine Mucus Rare H (None) /hpf Disposition Clinical Impression: Flank pain Disposition: HOME SELF-CARE Condition: Fair Instructions (If sedation given, give patient instructions): Flank Pain (ED) Is patient prescribed a controlled substance at d/c from ED?: No Referrals: Evy Anthony MD [STAFF PHYSICIAN] - 1-2 days Jonatan Cummings MD [STAFF PHYSICIAN] - 1-2 days Time of Disposition: 12:49
[2022-01-13] MEDS ORDERED: HYDROmorphone 1 MG/ML 1 ML SYRINGE IVP STA (11:31)
[2022-01-13 11:43] LABS: Appearance,Urine Cloudy (Clear); Bacteria,Urine Moderate /hpf; Bilirubin,Urine Negative (Negative); Blood,Urine Negative (Negative); Color,Urine Yellow; Glucose,Urine (UA) Negative (Negative); Ketones,Urine Negative (Negative); Leukocyte Esterase,Urine Negative (Negative); Mucus,Urine Rare /hpf; Nitrite,Urine Negative (Negative); PH, Urine 5.5 (5.0-8.0); Protein,Urine Negative (Negative); Specific Gravity,Urine 1.013 (1.001-1.035); Squamous Epithelial Cell,Urine 8 /hpf (0-4); Urobilinogen,Urine <2.0 mg/dL (<2.0); WBC,Urine 2 /hpf (0-5)
--- NOTE | 2022-01-13 11:57 | CT ---
EXAMINATION TYPE: CT abdomen pelvis wo con DATE OF EXAM: 01/13/2022 COMPARISON: CT dated 03/27/2021 HISTORY: Right groin pain, nausea, Suspect kidney stones CT DLP: 2283.3 mGycm Automated exposure control for dose reduction was used. TECHNIQUE: Helical acquisition of images was performed from the lung bases through the pelvis. FINDINGS: Suboptimal CT scan with artifactual images. LUNG BASES: No significant abnormality is appreciated. LIVER/GB: Enlarged liver measuring 19.2 cm with extension of the left hepatic lobe to the spleen. Iman pected mild hepatic steatosis. No definite hepatic focal lesion by this nonenhanced CT scan. Grossly unremarkable gallbladder. PANCREAS: No significant abnormality is seen. SPLEEN: No significant abnormality is seen. ADRENALS: No significant abnormality is seen. KIDNEYS: No significant abnormality is seen. FREE AIR: No free air is visualized RETROPERITONEAL ADENOPATHY: None visualized REPRODUCTIVE ORGANS: No gross uterine or adnexal mass. Ovarian cyst cannot be excluded. URINARY BLADDER: Incompletely distended. PELVIC ADENOPATHY: No pathologically enlarged pelvic lymph nodes. OSSEOUS STRUCTURES: No aggressive bone lesion. BOWEL: Unremarkable nondistended stomach, duodenum and small bowel. Scattered uncomplicated colonic diverticulosis. No gross colonic abnormality. Normal appendix. OTHER: No sizable ascites. Suspected pelvic adhesions. IMPRESSION: No definite radiodense urinary calculi. No hydroureter or hydronephrosis. No definite acute abnormali ty seen in the abdomen or the pelvis. Incidental findings as described above.
[2022-01-13] MEDS ORDERED: ONDANSETRON 4 MG/2 ML VIAL IVP STA (12:35)
[2022-01-13 13:27] VITALS: BP 118/87; PULSE 82; RESP 20; TEMP 98
== END 2022-01-13 13:25 | disposition home or self-care (01) ==
LOC: EC 09:27
DX: R10.31 Right lower quadrant pain (principal); F17.200 Nicotine dependence, unspecified, uncomplicated; F12.90 Cannabis use, unspecified, uncomplicated
CPT/HCPCS: 36415; 93005; 80053; 83690; 85025; 85610; 85730; 81001; 84702; 74176; 99284; 96374; 96375 ×2; 96361; J2270; J2405; J1170

== ENCOUNTER 2022-09-25 16:12 | Emergency (ER) | payer MEDICARE, OTHER ==
[2022-09-25 16:21] VITALS: TEMP 97.8
[2022-09-25] MEDS ORDERED: DIPH,PERTUS(ACELL)TETVAC-LF 0.5 ML VIAL IM ONE (16:57)
[2022-09-25] MEDS ORDERED: KETOROLAC 15 MG/ML 1 ML VIAL IVP STA (16:59)
[2022-09-25] MEDS ORDERED: CLINDAMYCIN 150 MG CAP PO STA (17:04)
[2022-09-25] MEDS ORDERED: SULFAMETHOX-TMP 800-160MG 1 EACH TAB PO STA (17:04)
[2022-09-25] MEDS ORDERED: KETOROLAC 15 MG/ML 1 ML VIAL IM STA (17:08)
--- NOTE | 2022-09-25 17:30 | XR ---
EXAMINATION TYPE: XR hand complete bilateral DATE OF EXAM: 09/25/2022 COMPARISON: NONE HISTORY: Attacked by dogs. TECHNIQUE: 3 views each hand FINDINGS: The metacarpals are intact. The fingers are intact. I see no fracture nor dislocation. Join t spaces are fairly normal. IMPRESSION: Negative bilateral hand exam. No fracture.
[2022-09-25] MEDS ORDERED: BACITRACIN OINT 1 EACH PACKET TOPICAL ONE (17:41)
--- NOTE | 2022-09-25 18:00 | ED ---
Animal Bite HPI - General Chief Complaint: Animal Bite Stated Complaint: dog bites, both hands Time Seen by Provider: 09/25/22 16:20 Source: patient Mode of arrival: ambulatory Limitations: no limitations - History of Present Illness Initial Comments: 32-year-old female presents emergency department reporting that she was bit by her neighbor's dogs. She states that she was out walking her dog when 2 dogs from her neighbor's house attempted to attack her. She got bit on both hands. Police were called to the scene. She did make a police report. Both [facility] were detained [facility] They did not appear rabid. She is unsure of the vaccine status of them. She is unsure of her last tetanus shot. She denies injuries to anyone else besides her hands. She is right-hand dominant. Admits to numbness and tingling in all 5 digits. She is markedly swollen. No active bleeding. No other alleviating, precipitating or modifying factors - Related Data Previous Rx's Medication Instructions Recorded Bacitracin Zinc/Polymyxin B 1 applic TOPICAL TID #30 gm 09/25/22 [Bacitracin-Polymyxin Ointment] HYDROcodone/APAP 7.5-325MG [[place] 1 tab PO Q4H PRN #18 tab 09/25/22 7.5-325] Sulfamethox-Tmp 800-160Mg [Bactrim 2 tab PO BID #28 tab 09/25/22 DS 800-160 mg] clindamycin HCL 300 mg PO QID #28 cap 09/25/22 Allergies Allergy/AdvReac Type Severity Reaction Status Date / Time amoxicillin [Amoxicillin] Allergy Anaphylaxis Verified 01/13/22 10:33 Review of Systems ROS Statement: Those systems with pertinent positive or pertinent negative responses have been documented in the HPI. ROS Other: All systems not noted in ROS Statement are negative. Past Medical History Past Medical History: Asthma Additional Past Medical History / Comment(s): refused to share any health information related to why she's coming in for endoscopies History of Any Multi-Drug Resistant Organisms: None Reported Past Surgical History: Adenoidectomy, Tonsillectomy Past Anesthesia/Blood Transfusion Reactions: No Reported Reaction, Family History of Problems w/ Anesthesia Additional Past Anesthesia/Blood Transfusion Reaction / Comment(s): mom had some kind of problem w/anesthesia but she's not sure what Past Psychological History: Anxiety, Bipolar, Depression, Panic Disorder, PTSD, Schizoaffective Disorder, Schizophrenia Smoking Status: Current every day smoker Past Alcohol Use History: None Reported Past Drug Use History: Marijuana - Past Family History Mother History Unknown: Yes Family Medical History: Cancer General Exam Limitations: no limitations General appearance: alert, in no apparent distress Head exam: Present: atraumatic, normocephalic, normal inspection Eye exam: Present: normal appearance, PERRL, EOMI. Absent: scleral icterus, conjunctival injection, periorbital swelling ENT exam: Present: normal exam, mucous membranes moist Neck exam: Present: normal inspection. Absent: tenderness, meningismus, lymphadenopathy Respiratory exam: Present: normal lung sounds bilaterally. Absent: respiratory distress, wheezes, rales, rhonchi, stridor Cardiovascular Exam: Present: regular rate, normal rhythm, normal heart sounds. Absent: systolic murmur, diastolic murmur, rubs, gallop, clicks GI/Abdominal exam: Present: soft, normal bowel sounds. Absent: distended, tenderness, guarding, rebound, rigid Extremities exam: Present: tenderness (all 10 digits. puncture wound right anterior medial wrist. multiple abrasions bilateral hands. no active bleeding. generalized swelling. ), normal capillary refill. Absent: pedal edema, joint swelling, calf tenderness Back exam: Present: normal inspection Neurological exam: Present: alert, oriented X3, CN II-XII intact Psychiatric exam: Present: normal affect, normal mood Skin exam: Present: warm, dry, intact, normal color. Absent: rash Course Vital Signs 09/25/22 09/25/22 16:17 18:15 Temperature 97.8 F Pulse Rate 87 85 Respiratory 18 16 Rate Blood Pressure 120/85 118/78 O2 Sat by Pulse 97 100 Oximetry Medical Decision Making - Medical Decision Making Was pt. sent in by a medical professional or institution? @ -No Did you speak to anyone other than the patient for history? @ -No Did you review nursing and triage notes? @ -Yes and I agree with nursing note Were old charts reviewed? @ -No Differential Diagnosis? @ -Puncture wound, dog bite, rabies exposure, cellulitis EKG interpreted by me (3pts min.)? @ -No X-rays interpreted by me (1pt min.)? @ -No CT interpreted by me (1pt min.)? @ -No U/S interpreted by me (1pt. min.)? @ -No What testing was considered but not performed? (CT, X-rays, U/S, labs)? Why? @None What meds were considered but not given? Why? @ -IV or IM narcotics however patient refused narcotics originally Did you discuss the management of the patient with other professionals? @ -None Did you reconcile home meds? @ -No Was smoking cessation discussed for >3mins.? @ -KNo Was critical care preformed (if so, how long)? @ -No Were there social determinants of health that impacted care today? How? (Homelessness, low income, unemployed, alcoholism, drug addiction, transportation, low edu. Level, literacy, decrease access to med. care, intermediate, rehab)? @ -None Was there de-escalation of care discussed even if they declined? (Discuss DNR or withdrawal of care, Hospice)? @ -No What co-morbidities impacted this encounter? (DM, HTN, Smoking, COPD, CAD, Cancer, CVA, Hep., AIDS, mental health diagnosis, sleep apnea, morbid obesity)? @ -Obesity Was patient admitted / discharged? @ -Discharged Undiagnosed new problem with uncertain prognosis? @ -No Drug Therapy requiring intensive monitoring for toxicity (Heparin, Nitro, Insulin, Cardizem)? @ -No Were any procedures done? @ -No Diagnosis/symptom? @ -Dog bite. Upon arrival patient was placed in the [facility] bed 10. Thorough history and physical exam was performed. Patient does have some abrasions and one puncture wound from the dog bites. Her hands are soaked in normal saline. She does go for x-ray of her bilateral hands which failed to demonstrate any fractures. We did place bacitracin to the site and hands are wrapped. We did provide her with dose of clindamycin and Bactrim for prophylaxis. Her tetanus is updated. The dogs are housed at the [facility] and therefore they need to be observed for 10 days in order to monitor for signs of rabies. Patient was given a dose of Toradol as she did originally refused narcotics. She is reevaluated and states that her pain continues and therefore she is agreeable to narcotic at this time. Dose of [place] is ordered. Patient will be discharged home on [place], clindamycin and Bactrim to take as directed. Follow-up with her doctor in 2-4 days and return should she have any signs of infection. Patient agreeable to treatment plan and she was discharged home in stable condition Acute, or Chronic, or Acute on Chronic? @ -Acute Uncomplicated (without systemic symptoms) or Complicated (systemic symptoms)? @ -Uncomplicated Side effects of treatment? @ -None Exacerbation, Progression, or Severe Exacerbation] @ No Poses a threat to life or bodily function? @ -No Disposition Clinical Impression: Dog bite Disposition: HOME SELF-CARE Condition: Stable Instructions (If sedation given, give patient instructions): Diphtheria/Pertussis/Tetanus Vaccine (By injection), Animal Bite (ED) Additional Instructions: Please keep the areas clean and covered. Use bacitracin to the areas. Take the antibiotics as directed. Follow up with your doctor in 2-4 days and return should your wounds begin to look infected. Call the [facility] to check on the status of the dog to make sure they arent showing any signs of rabies within the next 10 days Prescriptions: Bacitracin Zinc/Polymyxin B [Bacitracin-Polymyxin Ointment] 1 applic TOPICAL TID #30 gm Sulfamethox-Tmp 800-160Mg [Bactrim DS 800-160 mg] 2 tab PO BID #28 tab clindamycin HCL 300 mg PO QID #28 cap HYDROcodone/APAP 7.5-325MG [[place] 7.5-325] 1 tab PO Q4H PRN #18 tab PRN Reason: Pain Is patient prescribed a controlled substance at d/c from ED?: Yes When asked, does pt state using other controlled substances?: No If prescribed controlled substance>3 days was MAPS reviewed?: Prescribed <3 Days Referrals: Evy Anthony MD [Primary Care Provider] - 1-2 days Time of Disposition: 17:56
[2022-09-25] MEDS ORDERED: HYDROcodone/APAP 7.5-325MG 1 EACH TAB PO ONE (18:01)
[2022-09-25 18:57] VITALS: BP 118/78; PULSE 85; RESP 16
== END 2022-09-25 18:15 | disposition home or self-care (01) ==
LOC: EC 16:12
DX: S61.452A Open bite of left hand, initial encounter (principal); S61.451A Open bite of right hand, initial encounter; J45.909 Unspecified asthma, uncomplicated; F31.9 Bipolar disorder, unspecified; F17.200 Nicotine dependence, unspecified, uncomplicated; F12.90 Cannabis use, unspecified, uncomplicated; Z88.0 Allergy status to penicillin; Z23 Encounter for immunization; W54.0XXA Bitten by dog, initial encounter; Y93.K1 Activity, walking an animal; Y92.009 Unspecified place in unspecified non-institutional (private) residence as the place of occurrence of the external cause
CPT/HCPCS: 73130; 90715; 99283; 90471; 96372; J1885

== ENCOUNTER 2023-07-01 03:33 | Emergency (ER) | payer MEDICARE, OTHER ==
[2023-07-01 03:43] VITALS: TEMP 98.5
[2023-07-01] MEDS ORDERED: SODIUM CHLORIDE 0.9% 1,000 ML IV STA (03:55)
[2023-07-01] MEDS ORDERED: ONDANSETRON 4 MG/2 ML VIAL IVP STA (03:55)
[2023-07-01] MEDS ORDERED: KETOROLAC 15 MG/ML 1 ML VIAL IVP STA (03:55)
--- NOTE | 2023-07-01 04:10 | ED ---
Abdominal Pain HPI - General Chief Complaint: Abdominal Pain Stated Complaint: Abd Pain Time Seen by Provider: 07/01/23 03:53 Source: EMS, RN notes reviewed, old records reviewed Mode of arrival: EMS Limitations: no limitations - History of Present Illness Initial Comments: This is a 32-year-old female to the emergency department for evaluation. Cris pires presents today for evaluation of abdominal pain severe. Severe right-sided abdominal pain right-sided flank pain back pain. Positive pain tonight with progressively worsening. Positive nausea patient is very much in distress here in the ER secondary to pain control patient denies medical history takes no medications is no surgical history MD Complaint: abdominal pain, flank pain -: hour(s) Location: diffuse Radiation: none Migration to: periumbilical, epigastric Severity scale (1-10): 4 Quality: cramping, stabbing Consistency: constant Improves With: nothing Worsens With: nothing Associated Symptoms: denies other symptoms - Related Data Previous Rx's Medication Instructions Recorded Bacitracin Zinc/Polymyxin B 1 applic TOPICAL TID #30 gm 09/25/22 [Bacitracin-Polymyxin Ointment] HYDROcodone/APAP 7.5-325MG [[place] 1 tab PO Q4H PRN #18 tab 09/25/22 7.5-325] Sulfamethox-Tmp 800-160Mg [Bactrim 2 tab PO BID #28 tab 09/25/22 DS 800-160 mg] clindamycin HCL 300 mg PO QID #28 cap 09/25/22 Allergies Allergy/AdvReac Type Severity Reaction Status Date / Time amoxicillin [Amoxicillin] Allergy Anaphylaxis Verified 07/01/23 03:42 Review of Systems ROS Statement: Those systems with pertinent positive or pertinent negative responses have been documented in the HPI. ROS Other: All systems not noted in ROS Statement are negative. Past Medical History Past Medical History: Asthma Additional Past Medical History / Comment(s): refused to share any health information related to why she's coming in for endoscopies History of Any Multi-Drug Resistant Organisms: None Reported Past Surgical History: Adenoidectomy, Tonsillectomy Past Anesthesia/Blood Transfusion Reactions: No Reported Reaction, Family History of Problems w/ Anesthesia Additional Past Anesthesia/Blood Transfusion Reaction / Comment(s): mom had some kind of problem w/anesthesia but she's not sure what Past Psychological History: Anxiety, Bipolar, Depression, Panic Disorder, PTSD, Schizoaffective Disorder, Schizophrenia Smoking Status: Current every day smoker Past Alcohol Use History: None Reported Past Drug Use History: Marijuana - Past Family History Mother History Unknown: Yes Family Medical History: Cancer General Exam General appearance: alert, in no apparent distress, anxious Head exam: Present: atraumatic, normocephalic, normal inspection Eye exam: Present: normal appearance, PERRL, EOMI. Absent: scleral icterus, conjunctival injection, periorbital swelling ENT exam: Present: normal exam, mucous membranes moist Neck exam: Present: normal inspection. Absent: tenderness, meningismus, lymphadenopathy Respiratory exam: Present: normal lung sounds bilaterally. Absent: respiratory distress, wheezes, rales, rhonchi, stridor Cardiovascular Exam: Present: regular rate, normal rhythm, normal heart sounds. Absent: systolic murmur, diastolic murmur, rubs, gallop, clicks GI/Abdominal exam: Present: soft, normal bowel sounds. Absent: distended, tenderness, guarding, rebound, rigid Extremities exam: Present: normal inspection, full ROM, normal capillary refill. Absent: tenderness, pedal edema, joint swelling, calf tenderness Back exam: Present: normal inspection Neurological exam: Present: alert, oriented X3, CN II-XII intact Psychiatric exam: Present: normal affect, normal mood Skin exam: Present: warm, dry, intact, normal color. Absent: rash Course Vital Signs 07/01/23 07/01/23 07/01/23 03:38 03:47 04:30 Temperature 98.5 F Pulse Rate 82 76 72 Respiratory 20 Rate Blood Pressure 116/101 119/103 128/99 O2 Sat by Pulse 98 99 99 Oximetry 07/01/23 07/01/23 07/01/23 05:00 05:06 05:14 Temperature Pulse Rate 84 83 81 Respiratory 17 20 18 Rate Blood Pressure 136/91 131/117 121/79 O2 Sat by Pulse 98 100 98 Oximetry 07/01/23 07/01/23 06:00 07:28 Temperature Pulse Rate 82 86 Respiratory 19 20 Rate Blood Pressure 121/79 121/79 O2 Sat by Pulse 96 98 Oximetry - Reevaluation(s) Reevaluation #1: 07/01/23 06:17 Medical record is reviewed Reevaluation #2: 07/01/23 06:17 Patient's symptoms improving Reevaluation #3: Patient for results questions answered Reevaluation #4: 07/01/23 06:17 Was pt. sent in by a medical professional or institution (DIANNE Estrada, RECOVERY UNIT OPERATOR, urgent care, hospital, or half-way...) When possible be specific @ -no Did you speak to anyone other than the patient for history (EMS, parent, family, police, friend...)? What history was obtained from this source @ -no Did you review nursing and triage notes (agree or disagree)? Why? @ -agree Are old charts reviewed (outside hosp., previous admission, EMS record, old EKG, old radiological studies, urgent care reports/EKG's, half-way records)? Re port findings @ -yes Differential Diagnosis (chest pain, altered mental status, abdominal pain women, abdominal pain men, vaginal bleeding, weakness, fever, dyspnea, syncope, headache, dizziness, GI bleed, back pain, seizure, CVA, palpatations, mental health, musculoskeletal)? @ -prior EKG interpreted by me (3pts min.). @ -no X-rays interpreted by me (1pt min.). @ -no CT interpreted by me (1pt min.). @ -yes U/S interpreted by me (1pt. min.). @ -no What testing was considered but not performed or refused? (CT, X-rays, U/S, labs)? Why? @ -none What meds were considered but not given or refused? Why? @ -none Did you discuss the management of the patient with other professionals (mata yi i.e. DIANNE Estrada, RECOVERY UNIT OPERATOR, lab, RT, psych nurse, aids social worker, pillow cleaner, teacher, foreign service officer, behavioral health case manager)? Give summary @ -no Was smoking cessation discussed for >3mins.? @ -no Was critical care preformed (if so, how long)? @ -no Were there social determinants of health that impacted care today? How? (Homelessness, low income, unemployed, alcoholism, drug addiction, transportation, low edu. Level, literacy, decrease access to med. care, senior living, rehab)? @ -none Was there de-escalation of care discussed even if they declined (Discuss DNR or withdrawal of care, Hospice)? DNR status @ -no What co-morbidities impacted this encounter? (DM, HTN, Smoking, COPD, CAD, Cancer, CVA, ARF, Chemo, Hep., AIDS, mental health diagnosis, sleep apnea, morbid obesity)? @ -none Was patient admitted / discharged? Hospital course, mention meds given and route, prescriptions, significant lab abnormalities, going to OR and other pertinent info. @ - 32 female to the emergency department for evaluation of abdominal pain. Patient has no acute cause of findings of bowel pain here in the ER and can be d ischarged home Discharge Undiagnosed new problem with uncertain prognosis? @ -no Drug Therapy requiring intensive monitoring for toxicity (Heparin, Nitro, Insulin, Cardizem)? @ -no Were any procedures done? @ -no Diagnosis/symptom? @ -Abdominal pain Acute, or Chronic, or Acute on Chronic? @ -Acute Uncomplicated (without systemic symptoms) or Complicated (systemic symptoms)? @ -Complicated Side effects of treatment? @ -no Exacerbation, Progression, or Severe Exacerbation? @ -exacerbation Poses a threat to life or bodily function? How? (Chest pain, [place], [place], pneumonia, PE, COPD, DKA, ARF, appy, cholecystitis, CVA, Diverticulitis, Homicidal, Suicidal, threat to staff... and all critical care pts) @ -no Reevaluation #5: 07/01/23 06:17 Differential Abdominal Pain Women: Appendicitis, Cholecystitis, diverticulosis, ischemic bowel, pancreatitis, hepatitis, UTI, gastroenteritis, AAA, incarcerated hernia, bowel obstruction, constipation, inflammatory bowel, hepatitis, peptic ulcer disease, splenic infarction, perforated viscus, vulvitis, ovarian torsion, PID, kidney stone, placenta abruption, this is not meant to be an all-inclusive list Medical Decision Making - Medical Decision Making 32 female to the emergency department for evaluation of significant severe abdominal pain. No acute findings no lab value, no acute findings and pelvis and patient can be discharged home - Lab Data Result diagrams: 07/01/23 04:01 07/01/23 04:01 Lab Results 07/01/23 07/01/23 Range/Units 04:01 04:01 WBC 8.5 (3.8-10.6) k/uL RBC 4.58 (3.80-5.40) m/uL Hgb 13.9 (11.4-16.0) gm/dL Hct 42.0 (34.0-46.0) % MCV 91.8 (80.0-100.0) fL MCH 30.5 (25.0-35.0) pg MCHC 33.2 (31.0-37.0) g/dL RDW 12.8 (11.5-15.5) % Plt Count 277 (150-450) k/uL MPV 7.4 Neutrophils % 69 % Lymphocytes % 21 % Monocytes % 7 % Eosinophils % 1 % Basophils % 0 % Neutrophils # 5.9 (1.3-7.7) k/uL Lymphocytes # 1.8 (1.0-4.8) k/uL Monocytes # 0.6 (0-1.0) k/uL Eosinophils # 0.1 (0-0.7) k/uL Basophils # 0.0 (0-0.2) k/uL Sodium 139 (137-145) mmol/L Potassium 4.2 (3.5-5.1) mmol/L Chloride 107 (98-107) mmol/L Carbon Dioxide 26 (22-30) mmol/L Anion Gap 6 mmol/L BUN 15 (7-17) mg/dL Creatinine 0.74 (0.52-1.04) mg/dL Est GFR (CKD-EPI)AfAm >90 (>60 ml/min/1.73 sqM) Est GFR (CKD-EPI)NonAf >90 (>60 ml/min/1.73 sqM) Glucose 109 H (74-99) mg/dL Calcium 8.7 (8.4-10.2) mg/dL Total Bilirubin 0.5 (0.2-1.3) mg/dL AST 24 (14-36) U/L ALT 25 (4-34) U/L Alkaline Phosphatase 62 (38-126) U/L Total Protein 6.8 (6.3-8.2) g/dL Albumin 3.9 (3.5-5.0) g/dL Amylase 57 (30-110) U/L Lipase 154 (23-300) U/L - Radiology Data Radiology results: report reviewed (CT of the abdomen and pelvis is negative for acute disease), image reviewed Disposition Clinical Impression: Abdominal pain Disposition: HOME SELF-CARE Condition: Good Instructions (If sedation given, give patient instructions): Abdominal Pain (ED) Is patient prescribed a controlled substance at d/c from ED?: No Referrals: None,Stated [Primary Care Provider] - 1-2 days Time of Disposition: 07:00
[2023-07-01] MEDS ORDERED: MORPHINE SULFATE 4 MG/ML SYRINGE IVP STA (04:58)
[2023-07-01 04:59] LABS: ALT 25 U/L (4-34); AST 24 U/L (14-36); African American GFR (CKD) >90 (>60 ml/min/1.73 sqM); Albumin 3.9 g/dL (3.5-5.0); Alkaline Phosphatase 62 U/L (38-126); Amylase 57 U/L (30-110); Anion Gap 6 mmol/L; Blood Urea Nitrogen 15 mg/dL (7-17); Calcium 8.7 mg/dL (8.4-10.2); Carbon Dioxide 26 mmol/L (22-30); Chloride 107 mmol/L (98-107); Glucose 109 mg/dL (74-99); Lipase 154 U/L (23-300); Non-African American GFR(CKD) >90 (>60 ml/min/1.73 sqM); Potassium 4.2 mmol/L (3.5-5.1); Sodium 139 mmol/L (137-145); Total Bilirubin 0.5 mg/dL (0.2-1.3); Total Protein 6.8 g/dL (6.3-8.2)
[2023-07-01 05:00] LABS: Basophils % (A) 0 %; Eosinophils # (A) 0.1 k/uL (0-0.7); Eosinophils % (A) 1 %; HGB 13.9 gm/dL (11.4-16.0); Lymphocytes # (A) 1.8 k/uL (1.0-4.8); Lymphocytes % (A) 21 %; MCH 30.5 pg (25.0-35.0); MCHC 33.2 g/dL (31.0-37.0); MCV 91.8 fL (80.0-100.0); Mean Platelet Volume 7.4; Monocytes # (A) 0.6 k/uL (0-1.0); Monocytes % (A) 7 %; Neutrophils # (A) 5.9 k/uL (1.3-7.7); Neutrophils % (A) 69 %; Platelet Count 277 k/uL (150-450); RBC 4.58 m/uL (3.80-5.40); RDW 12.8 % (11.5-15.5); WBC 8.5 k/uL (3.8-10.6)
[2023-07-01 05:14] VITALS: BP 121/79
[2023-07-01 07:34] VITALS: PULSE 86; RESP 20
--- NOTE | 2023-07-01 07:45 | CT ---
EXAM: CT Abdomen and Pelvis Without Intravenous Contrast CLINICAL HISTORY: ITS.REASON CT Reason: abdominal pain TECHNIQUE: Axial computed tomography images of the abdomen and pelvis without intravenous contrast. CTDI is 109.2 mGy and DLP is 6651.8 mGy-cm. This CT exam was performed using one or more of the following dose reduction techniques: automated exposure control, adjustment of the mA and/or kV according to patient size, and/or use of iterative reconstruction technique. COMPARISON: CT Abdomen and pelvis performed 01/13/22 FINDINGS: Limitations: Evaluation of the solid and hollow viscera limited due to lack of oral and IV contrast. Exam mildly motion degraded. Within this constraint: Lung bases: Unremarkable. No mass. No consolidation. ABDOMEN: Liver: Hepatomegaly. Gallbladder and bile ducts: No calcified stones. No ductal dilation. Pancreas: Unremarkable. No ductal dilation. Spleen: Unremarkable. No splenomegaly. Adrenals: Unremarkable. No mass. Kidneys and ureters: No obstructing stones. No hydronephrosis. Stomach and bowel: Grossly Unremarkable. No obstruction. No mucosal thickening. PELVIS: Appendix: No findings to suggest acute appendicitis. Bladder: Unremarkable. No stones. Reproductive: Unremarkable as visualized. ABDOMEN and PELVIS: Intraperitoneal space: No free air. No significant fluid collection. Bones/joints: No acute fracture. No dislocation. Soft tissues: Unremarkable. Vasculature: No abdominal aortic aneurysm. Lymph nodes: No enlarged lymph nodes. IMPRESSION: Evaluation of the solid and hollow viscera limited due to lack of oral and IV contrast. Exam mildly motion degraded. Within this constraint: No acute findings in the abdomen or pelvis.
== END 2023-07-01 07:28 | disposition home or self-care (01) ==
LOC: EC 03:33
DX: R10.9 Unspecified abdominal pain (principal); J45.909 Unspecified asthma, uncomplicated; F17.200 Nicotine dependence, unspecified, uncomplicated; Z86.59 Personal history of other mental and behavioral disorders; Z88.0 Allergy status to penicillin
CPT/HCPCS: 96374; 96375 ×2; 96361; 36415; 80053; 82150; 83690; 85025; 74176; 99285; J2270; J2405; J1885

== ENCOUNTER 2023-07-14 13:13 | Emergency (ER) | payer MEDICARE, OTHER ==
--- NOTE | 2023-07-14 13:49 | ED ---
URI HPI - General Source: RN notes reviewed <Lennie Adams - Last Filed: 07/14/23 13:47> <Amy Jeter - Last Filed: 07/14/23 18:30> - General Stated Complaint: cough,vomiting Time Seen by Provider: 07/14/23 13:47 - History of Present Illness Initial Comments: Patient is a 32-year-old female who presents the emergency department for upper respiratory symptoms. Patient has had cough for the past couple weeks she has history of asthma and COPD. She states she has been out of medication for her nebulizer. Patient is short of breath on exertion no chest pain no fever (Lennie Llanos) 32-year-old female presents to the emergency department chief complaint of cough and congestion 1 week. She states that she has been getting sick on and off for the past month. She states that she has been taking DayQuil and NyQuil which occasionally helps. She admits to fever and muscle aches. Her daughter has the same symptoms. She admits to a history of COPD and asthma. She states that she has a nebulizer at home but she has run out of medication for it. (Amy Jeter) - Related Data Previous Rx's Medication Instructions Recorded Bacitracin Zinc/Polymyxin B 1 applic TOPICAL TID #30 gm 09/25/22 [Bacitracin-Polymyxin Ointment] HYDROcodone/APAP 7.5-325MG [Hickman 1 tab PO Q4H PRN #18 tab 09/25/22 7.5-325] Sulfamethox-Tmp 800-160Mg [Bactrim 2 tab PO BID #28 tab 09/25/22 DS 800-160 mg] clindamycin HCL 300 mg PO QID #28 cap 09/25/22 Albuterol Nebulized [Ventolin 2.5 mg INHALATION Q4H PRN #75 ml 07/14/23 Nebulized] Azithromycin [Zithromax Z Pack] 0 tab PO DIRECTED #6 tab 07/14/23 methylPREDNISolone Dose Pack 4 mg PO DIRECTED #1 packet 07/14/23 [Medrol Dose Pack] Allergies Allergy/AdvReac Type Severity Reaction Status Date / Time amoxicillin [Amoxicillin] Allergy Anaphylaxis Verified 07/01/23 03:42 Review of Systems ROS Other: All systems not noted in ROS Statement are negative. <Lennie Adams - Last Filed: 07/14/23 13:47> ROS Other: All systems not noted in ROS Statement are negative. <PradeepradhakatAmy - Last Filed: 07/14/23 18:30> ROS Statement: Those systems with pertinent positive or pertinent negative responses have been documented in the HPI. Past Medical History Past Medical History: Asthma Additional Past Medical History / Comment(s): refused to share any health information related to why she's coming in for endoscopies History of Any Multi-Drug Resistant Organisms: None Reported Past Surgical History: Adenoidectomy, Tonsillectomy Past Anesthesia/Blood Transfusion Reactions: No Reported Reaction, Family History of Problems w/ Anesthesia Additional Past Anesthesia/Blood Transfusion Reaction / Comment(s): mom had some kind of problem w/anesthesia but she's not sure what Past Psychological History: Anxiety, Bipolar, Depression, Panic Disorder, PTSD, Schizoaffective Disorder, Schizophrenia Smoking Status: Current every day smoker Past Alcohol Use History: None Reported Past Drug Use History: Marijuana - Past Family History Mother History Unknown: Yes Family Medical History: Cancer <Lennie Adams - Last Filed: 07/14/23 13:47> General Exam <Lennie Adams - Last Filed: 07/14/23 13:47> Limitations: no limitations General appearance: alert, in no apparent distress Head exam: Present: atraumatic, normocephalic, normal inspection Eye exam: Present: normal appearance, PERRL, EOMI. Absent: scleral icterus, conjunctival injection, periorbital swelling ENT exam: Present: normal exam, mucous membranes moist, TM's normal bilaterally, normal external ear exam Neck exam: Present: normal inspection, full ROM. Absent: tenderness, meningismus, lymphadenopathy Respiratory exam: Present: wheezes. Absent: respiratory distress, rales, rhonchi, stridor Cardiovascular Exam: Present: regular rate, normal rhythm, normal heart sounds. Absent: systolic murmur, diastolic murmur, rubs, gallop, clicks Extremities exam: Present: normal inspection, full ROM, normal capillary refill. Absent: tenderness, pedal edema, joint swelling, calf tenderness Neurological exam: Present: alert, oriented X3 Psychiatric exam: Present: normal affect, normal mood Skin exam: Present: warm, dry, intact, normal color. Absent: rash <Kulka,Amy - Last Filed: 07/14/23 18:30> - General Exam Comments Initial Comments: Visual Physical Exam Vital signs reviewed General: short of breath, audible wheeze Head: Normocephalic, atraumatic Eyes: PERRLA, EOMI ENT: Airway patent Chest: Nonlabored breathing Skin: No visual rash, normal skin tone Neuro: Alert and oriented 3 Musculoskeletal: No gross abnormalities (Lennie Adams) Course Vital Signs 07/14/23 07/14/23 07/14/23 13:45 14:00 15:25 Temperature 98.4 F Pulse Rate 93 83 Respiratory 26 H 28 H 24 Rate Blood Pressure 154/79 O2 Sat by Pulse 95 Oximetry 07/14/23 07/14/23 07/14/23 15:36 15:52 17:34 Temperature 99.2 F Pulse Rate 88 84 94 Respiratory 24 22 18 Rate Blood Pressure 150/70 151/76 O2 Sat by Pulse 95 99 Oximetry Medical Decision Making <Lennie Adams - Last Filed: 07/14/23 13:47> <Amy Jeter - Last Filed: 07/14/23 18:30> - Medical Decision Making I performed the QuickNote portion of this chart - Lennie Adams PA-C (Lennie Adams) Was pt. sent in by a medical professional or institution ([facility], BACKFILLER, urgent care, hospital, or custodial...) When possible be specific @ -No Did you speak to anyone other than the patient for history (EMS, parent, family, police, friend...)? What history was obtained from this source @ -No Did you review nursing and triage notes (agree or disagree)? Why? @ -I reviewed and agree with nursing and triage notes Were old charts reviewed (outside hosp., previous admission, EMS record, old EKG, old radiological studies, urgent care reports/EKG's, custodial records)? Report findings @ -No old charts were reviewed Differential Diagnosis (chest pain, altered mental status, abdominal pain women, abdominal pain men, vaginal bleeding, weakness, fever, dyspnea, syncope, headache, dizziness, GI bleed, back pain, seizure, CVA, palpatations, mental health, musculoskeletal)? @ -Covid, influenza, RSV, COPD exacerbation, asthma exacerbation, viral URI, bronchitis, this list is not all-inclusive EKG interpreted by me (3pts min.). @ -None X-rays interpreted by me (1pt min.). @ -Chest x-ray obtained and shows no evidence of acute process CT interpreted by me (1pt min.). @ -None done U/S interpreted by me (1pt. min.). @ -None done What testing was considered but not performed or refused? (CT, X-rays, U/S, labs)? Why? @ -None What meds were considered but not given or refused? Why? @ -None Did you discuss the management of the patient with other professionals (professionals i.e. , PA, BACKFILLER, lab, RT, psych nurse, social media senior associate, concrete journeyman, teacher, training systems officer, porter sample case)? Give summary @ -No Was smoking cessation discussed for >3mins.? @ -No Was critical care preformed (if so, how long)? @ -No Were there social determinants of health that impacted care today? How? (Homelessness, low income, unemployed, alcoholism, drug addiction, transportation, low edu. Level, literacy, decrease access to med. care, [place] [facility], rehab)? @ -No Was there de-escalation of care discussed even if they declined (Discuss DNR or withdrawal of care, Hospice)? DNR status @ -No What co-morbidities impacted this encounter? (DM, HTN, Smoking, COPD, CAD, Cancer, CVA, ARF, Chemo, Hep., AIDS, mental health diagnosis, sleep apnea, morbid obesity)? @ -None Was patient admitted / discharged? Hospital course, mention meds given and route, prescriptions, significant lab abnormalities, going to OR and other pertinent info. @ -Discharged. Patient presented to emergency department chief complaint of cough and congestion with the nausea for the past week. She states her daughter has the same symptoms. She does have history of COPD and asthma and does not currently use an inhaler or nebulizer as she has run out of medication for it. Patient was given a DuoNeb treatment in the ED which seemed to feel improved her symptoms and her wheezing. Covid, influenza, RSV negative. Patient will be treated as a tracheal bronchitis with a Z-Juve, Medrol Dosepak. Prescription sent in for medication for her nebulizer. Patient understanding and agreeable with plan. Stable at time of discharge. Case discussed with Dr. Gomez Undiagnosed new problem with uncertain prognosis? @ -No Drug Therapy requiring intensive monitoring for toxicity (Heparin, Nitro, Insuli n, Cardizem)? @ -No Were any procedures done? @ -No Diagnosis/symptom? @ - bronchitis Acute, or Chronic, or Acute on Chronic? @ -Acute Uncomplicated (without systemic symptoms) or Complicated (systemic symptoms)? @ -uncomplicated Side effects of treatment? @ -No Exacerbation, Progression, or Severe Exacerbation? @ -No Poses a threat to life or bodily function? How? (Chest pain, [place], [place], pneumonia, PE, COPD, DKA, ARF, appy, cholecystitis, CVA, Diverticulitis, Homicidal, Suicidal, threat to staff... and all critical care pts) @ -No (Amy Jeter) - Lab Data Lab Results 07/14/23 Range/Units 14:51 Influenza Type A (PCR) Not Detected (Not Detectd) Influenza Type B (PCR) Not Detected (Not Detectd) RSV (PCR) Not Detected (Not Detectd) SARS-CoV-2 (PCR) Not Detected (Not Detectd) Disposition <Lennie Adams - Last Filed: 07/14/23 13:47> Is patient prescribed a controlled substance at d/c from ED?: No <Amy Jeter - Last Filed: 07/14/23 18:30> Clinical Impression: COPD (chronic obstructive pulmonary disease), Tracheobronchitis Disposition: HOME SELF-CARE Condition: Stable Instructions (If sedation given, give patient instructions): Acute Bronchitis (ED) Additional Instructions: Please follow up with your primary care provider. Return to the emergency department for new or worsening symptoms. Prescriptions: methylPREDNISolone Dose Pack [Medrol Dose Pack] 4 mg PO DIRECTED #1 packet Albuterol Nebulized [Ventolin Nebulized] 2.5 mg INHALATION Q4H PRN #75 ml PRN Reason: difficulty in breathing Azithromycin [Zithromax Z Pack] 0 tab PO DIRECTED #6 tab Referrals: None,Stated [Primary Care Provider] - 1-2 days
[2023-07-14] MEDS ORDERED: IPRATROPIUM-ALBUTEROL 3 ML NEB INHALATION STA (14:56)
--- NOTE | 2023-07-14 14:58 | XR ---
EXAMINATION TYPE: XR chest 2V DATE OF EXAM: 07/14/2023 COMPARISON: 12/26/2021 TECHNIQUE: PA and lateral views submitted. HISTORY: Cough and vomiting FINDINGS: The lungs are clear and there is no pneumothorax, pleural effusion, or focal pneumonia. Heart size normal and no overt failure. Osseous structures intact. IMPRESSION: 1. No acute process.
[2023-07-14 17:37] VITALS: BP 151/76; PULSE 94; RESP 18; TEMP 99.2
== END 2023-07-14 17:37 | disposition home or self-care (01) ==
LOC: EC 13:13
DX: J44.9 Chronic obstructive pulmonary disease, unspecified (principal); F17.200 Nicotine dependence, unspecified, uncomplicated; F12.90 Cannabis use, unspecified, uncomplicated; Z86.59 Personal history of other mental and behavioral disorders; Z88.0 Allergy status to penicillin; Z20.822 Contact with and (suspected) exposure to COVID-19
CPT/HCPCS: 71046; 87636; 94640; 99283

== ENCOUNTER 2023-08-13 14:09 | Emergency (ER) | payer MEDICARE, OTHER ==
[2023-08-13] MEDS ORDERED: ONDANSETRON 4 MG/2 ML VIAL IVP STA (14:31)
[2023-08-13] MEDS ORDERED: MAG HYDROX/AL HYDROX/SIMETH 30 ML, HYOSCYAMINE ELIXIR 10 ML, LIDOCAINE VISCOUS 2% 10 ML PO STA ×3 (14:31)
[2023-08-13] MEDS ORDERED: SODIUM CHLORIDE 0.9% 1,000 ML IV ONE (14:31)
[2023-08-13] MEDS ORDERED: METOCLOPRAMIDE 5 MG/ML 2 ML VIAL IVP STA (15:22)
[2023-08-13 15:28] LABS: Basophils % (A) 0 %; Eosinophils # (A) 0.1 k/uL (0-0.7); Eosinophils % (A) 1 %; HCT 44.5 % (34.0-46.0); HGB 15.2 gm/dL (11.4-16.0); Lymphocytes # (A) 0.5 k/uL (1.0-4.8); Lymphocytes % (A) 4 %; MCH 30.5 pg (25.0-35.0); MCV 89.6 fL (80.0-100.0); Mean Platelet Volume 7.7; Monocytes # (A) 0.5 k/uL (0-1.0); Monocytes % (A) 5 %; Neutrophils # (A) 10.4 k/uL (1.3-7.7); Neutrophils % (A) 90 %; Platelet Count 279 k/uL (150-450); RBC 4.97 m/uL (3.80-5.40); RDW 12.8 % (11.5-15.5); WBC 11.5 k/uL (3.8-10.6)
[2023-08-13 15:30] LABS: ALT 31 U/L (4-34); AST 28 U/L (14-36); African American GFR (CKD) >90 (>60 ml/min/1.73 sqM); Albumin 4.5 g/dL (3.5-5.0); Alkaline Phosphatase 85 U/L (38-126); Anion Gap 8 mmol/L; Blood Urea Nitrogen 15 mg/dL (7-17); Calcium 9.3 mg/dL (8.4-10.2); Carbon Dioxide 25 mmol/L (22-30); Chloride 103 mmol/L (98-107); Glucose 105 mg/dL (74-99); Lipase 88 U/L (23-300); Non-African American GFR(CKD) >90 (>60 ml/min/1.73 sqM); Potassium 4.4 mmol/L (3.5-5.1); Sodium 136 mmol/L (137-145); Total Bilirubin 0.9 mg/dL (0.2-1.3); Total Protein 7.5 g/dL (6.3-8.2)
--- NOTE | 2023-08-13 15:49 | US ---
EXAMINATION TYPE: US gallbladder DATE OF EXAM: 08/13/2023 COMPARISON: NONE CLINICAL INDICATION: Female, 33 years old with history of RUQ pain, [place]; Obese patient with COPD and N /V TECHNIQUE: Multiple sonographic images of the right upper quadrant are obtained. FINDINGS: EXAM MEASUREMENTS: Liver Length: 21.1 cm Gallbladder Wall: 0.2 cm CBD: 0.6 cm Right Kidney: 11.8 x 4.5 x 4.4 cm THREAD WEAVER NOTES:Difficult to image due to habitus and bowel gas Pancreas: not seen due to gas Liver: difficult to penetrate and enlarged Gallbladder: wnl Evidence for sonographic Schroeder's sign: no CBD: wnl Right Kidney: wnl IMPRESSION: 1. Limited evaluation due to body habitus and bowel gas. 2. Hepatomegaly. 3. no cholelithiasis or biliary ductal dilatation.
[2023-08-13 15:53] LABS: Appearance,Urine Cloudy (Clear); Bacteria,Urine Rare /hpf; Bilirubin,Urine Negative (Negative); Blood,Urine Negative (Negative); Color,Urine Yellow; Glucose,Urine (UA) Negative (Negative); Ketones,Urine Negative (Negative); Leukocyte Esterase,Urine Negative (Negative); Mucus,Urine Rare /hpf; Nitrite,Urine Negative (Negative); Protein,Urine Negative (Negative); RBC,Urine <1 /hpf (0-5); Specific Gravity,Urine 1.026 (1.001-1.035); Squamous Epithelial Cell,Urine 15 /hpf (0-4); Urobilinogen,Urine <2.0 mg/dL (<2.0); WBC,Urine 1 /hpf (0-5)
[2023-08-13 16:03] LABS: HCG,Quantitative Serum <2.4 mIU/mL
[2023-08-13 16:18] VITALS: TEMP 99.5
--- NOTE | 2023-08-13 16:32 | ED ---
General Adult HPI - General Chief complaint: Nausea/Vomiting/Diarrhea Stated complaint: Vomiting Time Seen by Provider: 08/13/23 14:16 Source: patient, RN notes reviewed Mode of arrival: ambulatory Limitations: no limitations - History of Present Illness Initial comments: 33-year-old female with no significant past medical history presents emergency Department chief complaint of nausea and vomiting. Patient reports that she woke up at approximately 12 AM with acute nausea vomiting and diarrhea. She does report she had some bad meat" that caused her other family members have similar symptoms. He is complaining of accompanying generalized abdominal pain. Denies any known fever, cough, congestion, headache, melena, hematochezia. - Related Data Home Medications Medication Instructions Recorded Confirmed Albuterol Inhaler [Ventolin Hfa 2 puff INHALATION RT-Q6H PRN 08/13/23 08/13/23 Inhaler] Albuterol Nebulized [Ventolin 2.5 mg INHALATION RT-Q4H PRN 08/13/23 08/13/23 Nebulized] Omeprazole 20 mg PO DAILY PRN 08/13/23 08/13/23 Previous Rx's Medication Instructions Recorded Dicyclomine [Bentyl] 20 mg PO TID #30 tablet 08/13/23 Metoclopramide [Reglan] 10 mg PO TID PRN #15 tab 08/13/23 Allergies Allergy/AdvReac Type Severity Reaction Status Date / Time amoxicillin [Amoxicillin] Allergy Anaphylaxis Verified 08/13/23 15:06 Review of Systems ROS Statement: Those systems with pertinent positive or pertinent negative responses have been documented in the HPI. ROS Other: All systems not noted in ROS Statement are negative. Past Medical History Past Medical History: Asthma Additional Past Medical History / Comment(s): refused to share any health information related to why she's coming in for endoscopies History of Any Multi-Drug Resistant Organisms: None Reported Past Surgical History: Adenoidectomy, Tonsillectomy Past Anesthesia/Blood Transfusion Reactions: No Reported Reaction, Family History of Problems w/ Anesthesia Additional Past Anesthesia/Blood Transfusion Reaction / Comment(s): mom had some kind of problem w/anesthesia but she's not sure what Past Psychological History: Anxiety, Bipolar, Depression, Panic Disorder, PTSD, Schizoaffective Disorder, Schizophrenia Smoking Status: Current every day smoker Past Alcohol Use History: None Reported Past Drug Use History: Marijuana - Past Family History Mother History Unknown: Yes Family Medical History: Cancer General Exam - General Exam Comments Initial Comments: General: Alert, in no acute distress Head: atraumatic normocephalic. Eyes PERRL, EOMI intact, mucous membranes moist Respiratory: Lungs clear to auscultation bilaterally Cardiovascular: Heart rate regular rate and rhythm Abdominal: Soft without guarding or rebound, rigid upper quadrant tenderness Extremities: Normal inspection with full range of motion and normal capillary r efill Neuroogic: alert and oriented 3, CN II-XII intact, able to ambulate with steady gait Skin: warm dry and intact with normal color Limitations: no limitations Course Vital Signs 08/13/23 08/13/23 08/13/23 14:10 14:26 16:11 Temperature 98.7 F 98.4 F 99.5 F Pulse Rate 100 91 99 Respiratory 18 18 18 Rate Blood Pressure 144/74 109/72 124/89 O2 Sat by Pulse 98 97 96 Oximetry 08/13/23 16:39 Temperature Pulse Rate 86 Respiratory 20 Rate Blood Pressure 140/86 O2 Sat by Pulse 98 Oximetry - Reevaluation(s) Reevaluation #1: 08/13/23 16:31 Should reevaluated. Patient reports symptomatically improvement status post medications. Patient agreeable with the plan for discharge home Medical Decision Making - Medical Decision Making Was pt. sent in by a medical professional or institution ([facility], GREETER, urgent care, hospital, or correction...) When possible be specific @ -[No] Did you speak to anyone other than the patient for history (EMS, parent, family, police, friend...)? What history was obtained from this source @ - Did you review nursing and triage notes (agree or disagree)? Why? @ -[I reviewed and agree with nursing and triage notes] Were old charts reviewed (outside hosp., previous admission, EMS record, old EKG, old radiological studies, urgent care reports/EKG's, correction records)? Report findings @ -[No old charts were reviewed] Differential Diagnosis (chest pain, altered mental status, abdominal pain women, abdominal pain men, vaginal bleeding, weakness, fever, dyspnea, syncope, headache, dizziness, GI bleed, back pain, seizure, CVA, palpatations, mental health, musculoskeletal)? @ -[not applicable] EKG interpreted by me (3pts min.). @ -[As above] X-rays interpreted by me (1pt min.). @ -[None done] CT interpreted by me (1pt min.). @ -[None done] U/S interpreted by me (1pt. min.). @ -[None done] What testing was considered but not performed or refused? (CT, X-rays, U/S, labs )? Why? @ -[None] What meds were considered but not given or refused? Why? @ -[None] Did you discuss the management of the patient with other professionals (professionals i.e. , PA, GREETER, lab, RT, psych nurse, social worker delinquency prevention, operator electronic warfare, teacher, airline pilot/first officer, correctional case manager)? Give summary @ -[No] Was smoking cessation discussed for >3mins.? @ -[No] Was critical care preformed (if so, how long)? @ -[No] Were there social determinants of health that impacted care today? How? (Homelessness, low income, unemployed, alcoholism, drug addiction, transportation, low edu. Level, literacy, decrease access to med. care, [facility], rehab)? @ -[No] Was there de-escalation of care discussed even if they declined (Discuss DNR or withdrawal of care, Hospice)? DNR status @ -[No] What co-morbidities impacted this encounter? (DM, HTN, Smoking, COPD, CAD, Cancer, CVA, ARF, Chemo, Hep., AIDS, mental health diagnosis, sleep apnea, morbid obesity)? @ -[None] Was patient admitted / discharged? Hospital course, mention meds given and route, prescriptions, significant lab abnormalities, going to OR and other pert inent info. @ -Discharged. This is a 33-year-old female who presents the emergency department with acute nausea and vomiting. Patient had thorough history and physical exam performed. Physical exam essentially unremarkable. Patient is obese with stable vital signs. Patient has generalized abdominal tenderness mostly in the right upper quadrant. Patient laboratory studies and ultrasound which was unremarkable. I discussed the results in detail the patient verbalized understanding all questions addressed. Patient given Zofran, Reglan, IV fluids for symptomatic improvement. Patient provided prescriptions for Reglan and Bentyl. Recommend close follow-up with PCP. Patient discharged in stable condition. Case is discussed with Dr. manzanares P who agrees with POC Undiagnosed new problem with uncertain prognosis? @ -[No] Drug Therapy requiring intensive monitoring for toxicity (Heparin, Nitro, Insulin, Cardizem)? @ -[No] Were any procedures done? @ -[No] Diagnosis/symptom? @ -Nausea and vomiting Acute, or Chronic, or Acute on Chronic? @ -Acute Uncomplicated (without systemic symptoms) or Complicated (systemic symptoms)? @ -Uncomplicated Side effects of treatment? @ -[No] Exacerbation, Progression, or Severe Exacerbation? @ -[No] Poses a threat to life or bodily function? How? (Chest pain, [place], [place], pneumonia, PE, COPD, DKA, ARF, appy, cholecystitis, CVA, Diverticulitis, Homicidal, Suicidal, threat to staff... and all critical care pts) @ -Low likelihood - Lab Data Result diagrams: 08/13/23 14:31 08/13/23 14:31 Lab Results 08/13/23 08/13/23 08/13/23 Range/Units 14:31 14:31 14:31 WBC 11.5 H (3.8-10.6) k/uL RBC 4.97 (3.80-5.40) m/uL Hgb 15.2 (11.4-16.0) gm/dL Hct 44.5 (34.0-46.0) % MCV 89.6 (80.0-100.0) fL MCH 30.5 (25.0-35.0) pg MCHC 34.0 (31.0-37.0) g/dL RDW 12.8 (11.5-15.5) % Plt Count 279 (150-450) k/uL MPV 7.7 Neutrophils % 90 % Lymphocytes % 4 % Monocytes % 5 % Eosinophils % 1 % Basophils % 0 % Neutrophils # 10.4 H (1.3-7.7) k/uL Lymphocytes # 0.5 L (1.0-4.8) k/uL Monocytes # 0.5 (0-1.0) k/uL Eosinophils # 0.1 (0-0.7) k/uL Basophils # 0.0 (0-0.2) k/uL Sodium 136 L (137-145) mmol/L Potassium 4.4 (3.5-5.1) mmol/L Chloride 103 (98-107) mmol/L Carbon Dioxide 25 (22-30) mmol/L Anion Gap 8 mmol/L BUN 15 (7-17) mg/dL Creatinine 0.75 (0.52-1.04) mg/dL Est GFR (CKD-EPI)AfAm >90 (>60 ml/min/1.73 sqM) Est GFR (CKD-EPI)NonAf >90 (>60 ml/min/1.73 sqM) Glucose 105 H (74-99) mg/dL Calcium 9.3 (8.4-10.2) mg/dL Total Bilirubin 0.9 (0.2-1.3) mg/dL AST 28 (14-36) U/L ALT 31 (4-34) U/L Alkaline Phosphatase 85 (38-126) U/L Total Protein 7.5 (6.3-8.2) g/dL Albumin 4.5 (3.5-5.0) g/dL Lipase 88 (23-300) U/L HCG, Quant <2.4 mIU/mL Urine Color Urine Appearance (Clear) Urine pH (5.0-8.0) Ur Specific [place] (1.001-1.035) Urine Protein (Negative) Urine Glucose (UA) (Negative) Urine Ketones (Negative) Urine Blood (Negative) Urine Nitrite (Negative) Urine Bilirubin (Negative) Urine Urobilinogen (<2.0) mg/dL Ur Leukocyte Esterase (Negative) Urine RBC (0-5) /hpf Urine WBC (0-5) /hpf Ur Squamous Epith Cells (0-4) /hpf Urine Bacteria (None) /hpf Urine Mucus (None) /hpf Influenza Type A (PCR) Not Detected (Not Detectd) Influenza Type B (PCR) Not Detected (Not Detectd) RSV (PCR) Not Detected (Not Detectd) SARS-CoV-2 (PCR) Not Detected (Not Detectd) 08/13/23 Range/Units 14:42 WBC (3.8-10.6) k/uL RBC (3.80-5.40) m/uL Hgb (11.4-16.0) gm/dL Hct (34.0-46.0) % MCV (80.0-100.0) fL MCH (25.0-35.0) pg MCHC (31.0-37.0) g/dL RDW (11.5-15.5) % Plt Count (150-450) k/uL MPV Neutrophils % % Lymphocytes % % Monocytes % % Eosinophils % % Basophils % % Neutrophils # (1.3-7.7) k/uL Lymphocytes # (1.0-4.8) k/uL Monocytes # (0-1.0) k/uL Eosinophils # (0-0.7) k/uL Basophils # (0-0.2) k/uL Sodium (137-145) mmol/L Potassium (3.5-5.1) mmol/L Chloride (98-107) mmol/L Carbon Dioxide (22-30) mmol/L Anion Gap mmol/L BUN (7-17) mg/dL Creatinine (0.52-1.04) mg/dL Est GFR (CKD-EPI)AfAm (>60 ml/min/1.73 sqM) Est GFR (CKD-EPI)NonAf (>60 ml/min/1.73 sqM) Glucose (74-99) mg/dL Calcium (8.4-10.2) mg/dL Total Bilirubin (0.2-1.3) mg/dL AST (14-36) U/L ALT (4-34) U/L Alkaline Phosphatase (38-126) U/L Total Protein (6.3-8.2) g/dL Albumin (3.5-5.0) g/dL Lipase (23-300) U/L HCG, Quant mIU/mL Urine Color Yellow Urine Appearance Cloudy H (Clear) Urine pH 6.0 (5.0-8.0) Ur Specific [place] 1.026 (1.001-1.035) Urine Protein Negative (Negative) Urine Glucose (UA) Negative (Negative) Urine Ketones Negative (Negative) Urine Blood Negative (Negative) Urine Nitrite Negative (Negative) Urine Bilirubin Negative (Negative) Urine Urobilinogen <2.0 (<2.0) mg/dL Ur Leukocyte Esterase Negative (Negative) Urine RBC <1 (0-5) /hpf Urine WBC 1 (0-5) /hpf Ur Squamous Epith Cells 15 H (0-4) /hpf Urine Bacteria Rare H (None) /hpf Urine Mucus Rare H (None) /hpf Influenza Type A (PCR) (Not Detectd) Influenza Type B (PCR) (Not Detectd) RSV (PCR) (Not Detectd) SARS-CoV-2 (PCR) (Not Detectd) Disposition Clinical Impression: Food poisoning Disposition: HOME SELF-CARE Condition: Stable Instructions (If sedation given, give patient instructions): Acute Nausea and Vomiting (ED), Acute Diarrhea (ED) Additional Instructions: Please monitor symptoms closely Please return to the nearest emergency department worsening symptoms Prescriptions: Dicyclomine [Bentyl] 20 mg PO TID #30 tablet Metoclopramide [Reglan] 10 mg PO TID PRN #15 tab PRN Reason: Nausea Is patient prescribed a controlled substance at d/c from ED?: No Referrals: None,Stated [Primary Care Provider] - 1-2 days Time of Disposition: 16:32
[2023-08-13 16:43] VITALS: BP 140/86; PULSE 86; RESP 20
== END 2023-08-13 16:39 | disposition home or self-care (01) ==
LOC: EC 14:09
DX: A05.9 Bacterial foodborne intoxication, unspecified (principal); J44.89 Other specified chronic obstructive pulmonary disease; F17.200 Nicotine dependence, unspecified, uncomplicated; F12.90 Cannabis use, unspecified, uncomplicated; E66.9 Obesity, unspecified; Z86.59 Personal history of other mental and behavioral disorders; Z68.45 Body mass index [BMI] 70 or greater, adult; Z20.822 Contact with and (suspected) exposure to COVID-19; Z79.899 Other long term (current) drug therapy; Z88.0 Allergy status to penicillin
CPT/HCPCS: 36415; 80053; 83690; 85025; 81001; 84702; 87636; 76705; 99284; 96374; 96375; 96361; J2765; J2405

== ENCOUNTER 2023-09-29 16:40 | Emergency (ER) | payer MEDICARE, OTHER ==
--- NOTE | 2023-09-29 17:17 | ED ---
General Adult HPI - General Source: patient, RN notes reviewed <Amy Jeter - Last Filed: 09/29/23 17:17> <Devonte Bradshaw - Last Filed: 10/02/23 02:18> - General Stated complaint: Vomiting,bodyache Time Seen by Provider: 09/29/23 17:17 - History of Present Illness Initial comments: 33 year old female presents to the emergency department for evaluation of respiratory symptoms and myalgias. She states the symptoms have been on and off for 2 months but started again about 2 weeks ago. Her daughter has the same symptoms. She denies fever, chills. (Amy Jeter) 33-year-old female presenting with URI-like symptoms. Patient states that she has had a cough, congestion, bilateral ear pain, loss of taste and smell, and body aches for the past 2 weeks. Also admits to nausea, she had vomiting the other day which has resolved. Her daughter is also sick. No chest pain, difficulty breathing, abdominal pain, fever, chills, (Devonte Bradshaw) - Related Data Home Medications Medication Instructions Recorded Confirmed Albuterol Inhaler [Ventolin Hfa 2 puff INHALATION RT-Q6H PRN 08/13/23 08/13/23 Inhaler] Albuterol Nebulized [Ventolin 2.5 mg INHALATION RT-Q4H PRN 08/13/23 08/13/23 Nebulized] Omeprazole 20 mg PO DAILY PRN 08/13/23 08/13/23 Previous Rx's Medication Instructions Recorded Dicyclomine [Bentyl] 20 mg PO TID #30 tablet 08/13/23 Metoclopramide [Reglan] 10 mg PO TID PRN #15 tab 08/13/23 Allergies Allergy/AdvReac Type Severity Reaction Status Date / Time amoxicillin [Amoxicillin] Allergy Anaphylaxis Verified 09/29/23 17:47 Review of Systems ROS Other: All systems not noted in ROS Statement are negative. <Amy Jeter - Last Filed: 09/29/23 17:17> ROS Other: All systems not noted in ROS Statement are negative. <Devonte Bradshaw - Last Filed: 10/02/23 02:18> ROS Statement: Those systems with pertinent positive or pertinent negative responses have been documented in the HPI. Past Medical History Past Medical History: Asthma Additional Past Medical History / Comment(s): refused to share any health in formation related to why she's coming in for endoscopies History of Any Multi-Drug Resistant Organisms: None Reported Past Surgical History: Adenoidectomy, Tonsillectomy Past Anesthesia/Blood Transfusion Reactions: No Reported Reaction, Family History of Problems w/ Anesthesia Additional Past Anesthesia/Blood Transfusion Reaction / Comment(s): mom had some kind of problem w/anesthesia but she's not sure what Past Psychological History: Anxiety, Bipolar, Depression, Panic Disorder, PTSD, Schizoaffective Disorder, Schizophrenia Smoking Status: Current every day smoker Past Alcohol Use History: None Reported Past Drug Use History: Marijuana - Past Family History Mother History Unknown: Yes Family Medical History: Cancer <Amy Jeter - Last Filed: 09/29/23 17:17> General Exam <Amy Jeter - Last Filed: 09/29/23 17:17> Limitations: no limitations General appearance: alert, in no apparent distress Head exam: Present: atraumatic, normocephalic Eye exam: Present: normal appearance ENT exam: Present: normal exam, normal oropharynx, mucous membranes moist Neck exam: Present: normal inspection Respiratory exam: Present: normal lung sounds bilaterally. Absent: respiratory distress, wheezes, rales, rhonchi, stridor Cardiovascular Exam: Present: regular rate, normal rhythm, normal heart sounds. Absent: systolic murmur, diastolic murmur, rubs, gallop, clicks Neurological exam: Present: alert, oriented X3 Psychiatric exam: Present: normal affect, normal mood Skin exam: Present: warm, dry <Devonte Bradshaw - Last Filed: 10/02/23 02:18> - General Exam Comments Initial Comments: Visual Physical Exam Vital signs reviewed General: Well-appearing, nontoxic, no acute distress. Head: Normocephalic, atraumatic Eyes: PERRLA, EOMI ENT: Airway patent Chest: Nonlabored breathing Skin: No visual rash, normal skin tone Neuro: Alert and oriented 3 Musculoskeletal: No gross abnormalities (Amy Jeter) Course Vital Signs 09/29/23 09/29/23 17:47 19:37 Temperature 98.4 F 99.2 F Pulse Rate 81 87 Respiratory 18 18 Rate Blood Pressure 99/70 124/85 O2 Sat by Pulse 93 L 93 L Oximetry Medical Decision Making <Amy Jeter - Last Filed: 09/29/23 17:17> <Devonte Bradshaw - Last Filed: 10/02/23 02:18> - Medical Decision Making Quick note preformed by Amy Jeter PA-C (Amy Jeter) Was pt. sent in by a medical professional or institution (DIANNE Estrada, [employer] OPERATOR, urgent care, hospital, or jail...) When possible be specific @ -No Did you speak to anyone other than the patient for history (EMS, parent, family, police, friend...)? What history was obtained from this source @ -No Did you review nursing and triage notes (agree or disagree)? Why? @ -I reviewed and agree with nursing and triage notes Were old charts reviewed (outside hosp., previous admission, EMS record, old EKG, old radiological studies, urgent care reports/EKG's, jail records)? Report findings @ -No old charts were reviewed Differential Diagnosis (chest pain, altered mental status, abdominal pain women, abdominal pain men, vaginal bleeding, weakness, fever, dyspnea, syncope, headache, dizziness, GI bleed, back pain, seizure, CVA, palpatations, mental health, musculoskeletal)? @ -Differential includes influenza, RSV, Covid, group A strep, pneumonia, bronchitis, this is not an all-inclusive list EKG interpreted by me (3pts min.). @ -As above X-rays interpreted by me (1pt min.). @ -Chest X-ray shows no acute cardiopulmonary process CT interpreted by me (1pt min.). @ -None done U/S interpreted by me (1pt. min.). @ -None done What testing was considered but not performed or refused? (CT, X-rays, U/S, labs)? Why? @ -None What meds were considered but not given or refused? Why? @ -None Did you discuss the management of the patient with other professionals (professionals i.e. DINANE Estrada, [employer] OPERATOR, lab, RT, psych nurse, social service assistant, wire winding machine tender, teacher, corrections officer, employment evaluator/case manager)? Give summary @ -No Was smoking cessation discussed for >3mins.? @ -No Was critical care preformed (if so, how long)? @ -No Were there social determinants of health that impacted care today? How? (Homelessness, low income, unemployed, alcoholism, drug addiction, transportation, low edu. Level, literacy, decrease access to med. care, long-term, rehab)? @ -No Was there de-escalation of care discussed even if they declined (Discuss DNR or withdrawal of care, Hospice)? DNR status @ -No What co-morbidities impacted this encounter? (DM, HTN, Smoking, COPD, CAD, Cancer, CVA, ARF, Chemo, Hep., AIDS, mental health diagnosis, sleep apnea, mor bid obesity)? @ -None Was patient admitted / discharged? Hospital course, mention meds given and route, prescriptions, significant lab abnormalities, going to OR and other pertinent info. @ -33-year-old female presenting with URI-like symptoms and body aches ongoing for the last 2 weeks. History and physical exam were conducted. Patient is positive for influenza A. Chest x-ray shows no acute process. Patient is educated on today's finding management at home. Follow-up with PCP. Report back to ER with any new or worsening symptoms. Discussed return parameters and answered all questions. Patient conveyed verbal understanding and agreed to the plan. I discussed this case in detail with my attending Dr. Gomez Undiagnosed new problem with uncertain prognosis? @ -No Drug Therapy requiring intensive monitoring for toxicity (Heparin, Nitro, Insulin, Cardizem)? @ -No Were any procedures done? @ -No Diagnosis/symptom? @ -Influenza A Acute, or Chronic, or Acute on Chronic? @ -Acute Uncomplicated (without systemic symptoms) or Complicated (systemic symptoms)? @ -Complicated Side effects of treatment? @ -No Exacerbation, Progression, or Severe Exacerbation? @ -No Poses a threat to life or bodily function? How? (Chest pain, [place], [place], pneumonia, PE, COPD, DKA, ARF, appy, cholecystitis, CVA, Diverticulitis, Homicidal, Suicidal, threat to staff... and all critical care pts) @ -Low likelihood (Devonte Bradshaw) - Lab Data Lab Results 09/29/23 09/29/23 Range/Units 17:47 17:47 Influenza Type A (PCR) Detected A (Not Detectd) Influenza Type B (PCR) Not Detected (Not Detectd) RSV (PCR) Not Detected (Not Detectd) SARS-CoV-2 (PCR) Not Detected (Not Detectd) Group A Strep (PCR) NOT DETECTED (Not Detectd) Disposition <Amy Jeter - Last Filed: 09/29/23 17:17> Is patient prescribed a controlled substance at d/c from ED?: No Time of Disposition: 19:27 <Devonte Bradshaw - Last Filed: 10/02/23 02:18> Clinical Impression: Influenza Disposition: HOME SELF-CARE Condition: Good Instructions (If sedation given, give patient instructions): Influenza (ED) Additional Instructions: Follow-up with PCP. Report back to ER with any new or worsening symptoms. Alternate Motrin and Tylenol as needed for pain and fever control. Rest and drink plenty of fluids. Wash hands to prevent the spread of influenza. Referrals: None,Stated [Primary Care Provider] - 1-2 days
[2023-09-29 18:09] VITALS: RESP 18
--- NOTE | 2023-09-29 18:33 | XR ---
EXAMINATION TYPE: XR chest 2V DATE OF EXAM: 09/29/2023 6:19 PM CLINICAL INDICATION:Female, 33 years old with history of cough; [facility] COMPARISON: Chest radiographs from 07/14/2023. TECHNIQUE: XR chest 2V Frontal and lateral views of the chest. FINDINGS: Lungs/Pleura: There is no evidence of pleural effusion, focal consolidation, or pneumothorax. Pulmonary vascularity: Unremarkable. Heart/mediastinum: Cardiomediastinal silhouette is unremarkable. Musculoskeletal: No acute osseous pathology. IMPRESSION: No acute cardiopulmonary disease/process.
[2023-09-29 19:55] VITALS: BP 124/85; PULSE 87; TEMP 99.2
== END 2023-09-29 19:44 | disposition home or self-care (01) ==
LOC: EC 16:40
DX: J10.1 Influenza due to other identified influenza virus with other respiratory manifestations (principal); J45.909 Unspecified asthma, uncomplicated; F17.200 Nicotine dependence, unspecified, uncomplicated; F12.90 Cannabis use, unspecified, uncomplicated; Z86.59 Personal history of other mental and behavioral disorders; Z88.0 Allergy status to penicillin; Z79.899 Other long term (current) drug therapy; Z20.822 Contact with and (suspected) exposure to COVID-19
CPT/HCPCS: 71046; 87636; 87651; 99284

== ENCOUNTER 2024-05-29 17:16 | Emergency (ER) | payer MEDICARE, OTHER ==
--- NOTE | 2024-05-29 17:44 | ED ---
Headache HPI - General Chief Complaint: Headache Stated Complaint: Migraine Time Seen by Provider: 05/29/24 17:32 Source: patient, RN notes reviewed Mode of arrival: ambulatory Limitations: no limitations - History of Present Illness Initial Comments: This is a 33-year-old female presents emergency department chief complaint of headache. She states that symptoms were present over the past proximately 3 weeks described as a tension in the front forehead and radiates into the mid skull. States that she has been experiencing mild intermittent blurry vision as well. She endorses intermittent nausea as well as vomiting, with cough and rhinorrhea. Denies fevers. Patient states that she experiences headaches frequently however is never experienced visual changes before. Denies abdominal pain, chest pain, shortness of breath, difficulty breathing, tinnitus, dizziness - Related Data Home Medications Medication Instructions Recorded Confirmed Albuterol Inhaler [Ventolin Hfa 2 puff INHALATION RT-Q6H PRN 08/13/23 08/13/23 Inhaler] Albuterol Nebulized [Ventolin 2.5 mg INHALATION RT-Q4H PRN 08/13/23 08/13/23 Nebulized] Omeprazole 20 mg PO DAILY PRN 08/13/23 08/13/23 Previous Rx's Medication Instructions Recorded Dicyclomine [Bentyl] 20 mg PO TID #30 tablet 08/13/23 Metoclopramide [Reglan] 10 mg PO TID PRN #15 tab 08/13/23 Allergies Allergy/AdvReac Type Severity Reaction Status Date / Time amoxicillin [Amoxicillin] Allergy Anaphylaxis Verified 05/29/24 17:29 Review of Systems ROS Statement: Those systems with pertinent positive or pertinent negative responses have been documented in the HPI. ROS Other: All systems not noted in ROS Statement are negative. Past Medical History Past Medical History: Asthma Additional Past Medical History / Comment(s): refused to share any health in formation related to why she's coming in for endoscopies History of Any Multi-Drug Resistant Organisms: None Reported Past Surgical History: Adenoidectomy, Tonsillectomy Past Anesthesia/Blood Transfusion Reactions: No Reported Reaction, Family History of Problems w/ Anesthesia Additional Past Anesthesia/Blood Transfusion Reaction / Comment(s): mom had some kind of problem w/anesthesia but she's not sure what Past Psychological History: Anxiety, Bipolar, Depression, Panic Disorder, PTSD, Schizoaffective Disorder, Schizophrenia Smoking Status: Current every day smoker Past Alcohol Use History: None Reported Past Drug Use History: Marijuana - Past Family History Mother History Unknown: Yes Family Medical History: Cancer General Exam Limitations: no limitations General appearance: alert, in no apparent distress Head exam: Present: atraumatic, normocephalic, normal inspection Eye exam: Present: normal appearance, PERRL, EOMI. Absent: scleral icterus, conjunctival injection, periorbital swelling ENT exam: Present: normal exam, mucous membranes moist Neck exam: Present: normal inspection. Absent: tenderness, meningismus, lymphadenopathy Respiratory exam: Present: normal lung sounds bilaterally. Absent: respiratory distress, wheezes, rales, rhonchi, stridor Cardiovascular Exam: Present: regular rate, normal rhythm, normal heart sounds. Absent: systolic murmur, diastolic murmur, rubs, gallop, clicks GI/Abdominal exam: Present: soft, normal bowel sounds. Absent: distended, tenderness, guarding, rebound, rigid Extremities exam: Present: normal inspection, full ROM, normal capillary refill. Absent: tenderness, pedal edema, joint swelling, calf tenderness Back exam: Present: normal inspection Neurological exam: Present: alert, oriented X3, CN II-XII intact Psychiatric exam: Present: normal affect, normal mood Skin exam: Present: warm, dry, intact, normal color. Absent: rash Course Vital Signs 05/29/24 05/29/24 17:26 20:00 Temperature 98.5 F 98.1 F Pulse Rate 84 87 Respiratory 18 16 Rate Blood Pressure 138/95 139/71 O2 Sat by Pulse 99 97 Oximetry Medical Decision Making - Medical Decision Making Was pt. sent in by a medical professional or institution (, PA, AGENCY CASHIER, urgent care, hospital, or retirement...) When possible be specific @ -No Did you speak to anyone other than the patient for history (EMS, parent, family, police, friend...)? What history was obtained from this source @ -No Did you review nursing and triage notes (agree or disagree)? Why? @ -I reviewed and agree with nursing and triage notes Were old charts reviewed (outside hosp., previous admission, EMS record, old EKG, old radiological studies, urgent care reports/EKG's, retirement records)? Report findings @ -No old charts were reviewed Differential Diagnosis (chest pain, altered mental status, abdominal pain women, abdominal pain men, vaginal bleeding, weakness, fever, dyspnea, syncope, headache, dizziness, GI bleed, back pain, seizure, CVA, palpatations, mental health, musculoskeletal)? @ -Differential Headache: Migraine, tension, cluster, carbon monoxide, central venous thrombosis, pension karma temporal arteritis, acute closure glaucoma, intercranial hemorrhage, mastoiditis, sinusitis, head injury, this is not meant to be an all-inclusive list. EKG interpreted by me (3pts min.). @ -None X-rays interpreted by me (1pt min.). @ -None done CT interpreted by me (1pt min.). @ -CT brain without contrast no acute acute abnormality noted U/S interpreted by me (1pt. min.). @ -None done What testing was considered but not performed or refused? (CT, X-rays, U/S, labs)? Why? @ -None What meds were considered but not given or refused? Why? @ -None Did you discuss the management of the patient with other professionals (professionals i.e. , PA, AGENCY CASHIER, lab, RT, psych nurse, social work job titles, pitting machine operator, teacher, hospital security officer, case resource manager)? Give summary @ -No Was smoking cessation discussed for >3mins.? @ -No Was critical care preformed (if so, how long)? @ -No Were there social determinants of health that impacted care today? How? (Homelessness, low income, unemployed, alcoholism, drug addiction, transportat ion, low edu. Level, literacy, decrease access to med. care, half-way, rehab)? @ -No Was there de-escalation of care discussed even if they declined (Discuss DNR or withdrawal of care, Hospice)? DNR status @ -No What co-morbidities impacted this encounter? (DM, HTN, Smoking, COPD, CAD, Cancer, CVA, ARF, Chemo, Hep., AIDS, mental health diagnosis, sleep apnea, morbid obesity)? @ -None Was patient admitted / discharged? Hospital course, mention meds given and route, prescriptions, significant lab abnormalities, going to OR and other pertinent info. @ -discharge. 33-year-old female with headache. On examination patient is resting comfortably and in no acute signs of distress. Vitals are within normal limits. Neurological examination with no acute deficits. Patient is symptomatically treated medications pending labs and CT imaging. Patient is agreeable this plan. CT imaging negative for acute renal process. On reevaluation, patient states that her headache has not subsided much and is requesting discharge and declined further medications. Patient is stable for discharge at this time. Recommend that she follows up with her primary care provider this week for further evaluation. All questions answered at bedside and strict return parameters isabel with the patient she is verbalized understanding. Case discussed with Dr. sutton Undiagnosed new problem with uncertain prognosis? @ -No Drug Therapy requiring intensive monitoring for toxicity (Heparin, Nitro, Insulin, Cardizem)? @ -No Were any procedures done? @ -No Diagnosis/symptom? @ -Headache Acute, or Chronic, or Acute on Chronic? @ -Acute Uncomplicated (without systemic symptoms) or Complicated (systemic symptoms)? @ -Uncomplicated Side effects of treatment? @ -No Exacerbation, Progression, or Severe Exacerbation? @ -No Poses a threat to life or bodily function? How? (Chest pain, [place], [place], pneumonia, PE, COPD, DKA, ARF, appy, cholecystitis, CVA, Diverticulitis, Homicidal, Suicidal, threat to staff... and all critical care pts) @ -No - Lab Data Result diagrams: 05/29/24 18:17 05/29/24 18:17 Lab Results 05/29/24 05/29/24 05/29/24 Range/Units 18:17 18:17 18:17 WBC 9.4 (3.8-10.6) k/uL RBC 4.75 (3.80-5.40) m/uL Hgb 13.8 (11.4-16.0) gm/dL Hct 42.2 (34.0-46.0) % MCV 89.0 (80.0-100.0) fL MCH 29.1 (25.0-35.0) pg MCHC 32.7 (31.0-37.0) g/dL RDW 13.0 (11.5-15.5) % Plt Count 326 (150-450) k/uL MPV 7.1 Neutrophils % 64 % Lymphocytes % 24 % Monocytes % 8 % Eosinophils % 2 % Basophils % 1 % Neutrophils # 6.0 (1.3-7.7) k/uL Lymphocytes # 2.2 (1.0-4.8) k/uL Monocytes # 0.8 (0-1.0) k/uL Eosinophils # 0.2 (0-0.7) k/uL Basophils # 0.0 (0-0.2) k/uL Sodium (137-145) mmol/L Potassium (3.5-5.1) mmol/L Chloride (98-107) mmol/L Carbon Dioxide (22-30) mmol/L Anion Gap mmol/L BUN (7-17) mg/dL Creatinine (0.52-1.04) mg/dL Est GFR (CKD-EPI)AfAm (>60 ml/min/1.73 sqM) Est GFR (CKD-EPI)NonAf (>60 ml/min/1.73 sqM) Glucose (74-99) mg/dL Calcium (8.4-10.2) mg/dL Magnesium (1.6-2.3) mg/dL Total Bilirubin (0.2-1.3) mg/dL AST (14-36) U/L ALT (4-34) U/L Alkaline Phosphatase (38-126) U/L Total Protein (6.3-8.2) g/dL Albumin (3.5-5.0) g/dL Urine Color Light Yellow Urine Appearance Clear (Clear) Urine pH 6.0 (5.0-8.0) Ur Specific [place] 1.017 (1.001-1.035) Urine Protein Negative (Negative) Urine Glucose (UA) Negative (Negative) Urine Ketones Negative (Negative) Urine Blood Negative (Negative) Urine Nitrite Negative (Negative) Urine Bilirubin Negative (Negative) Urine Urobilinogen <2.0 (<2.0) mg/dL Ur Leukocyte Esterase Negative (Negative) Urine HCG, Qual Not Detected (Not Detectd) 05/29/24 Range/Units 18:17 WBC (3.8-10.6) k/uL RBC (3.80-5.40) m/uL Hgb (11.4-16.0) gm/dL Hct (34.0-46.0) % MCV (80.0-100.0) fL MCH (25.0-35.0) pg MCHC (31.0-37.0) g/dL RDW (11.5-15.5) % Plt Count (150-450) k/uL MPV Neutrophils % % Lymphocytes % % Monocytes % % Eosinophils % % Basophils % % Neutrophils # (1.3-7.7) k/uL Lymphocytes # (1.0-4.8) k/uL Monocytes # (0-1.0) k/uL Eosinophils # (0-0.7) k/uL Basophils # (0-0.2) k/uL Sodium 136 L (137-145) mmol/L Potassium 4.6 (3.5-5.1) mmol/L Chloride 105 (98-107) mmol/L Carbon Dioxide 24 (22-30) mmol/L Anion Gap 7 mmol/L BUN 12 (7-17) mg/dL Creatinine 0.72 (0.52-1.04) mg/dL Est GFR (CKD-EPI)AfAm >90 (>60 ml/min/1.73 sqM) Est GFR (CKD-EPI)NonAf >90 (>60 ml/min/1.73 sqM) Glucose 100 H (74-99) mg/dL Calcium 9.6 (8.4-10.2) mg/dL Magnesium 1.8 (1.6-2.3) mg/dL Total Bilirubin 0.6 (0.2-1.3) mg/dL AST 31 (14-36) U/L ALT 27 (4-34) U/L Alkaline Phosphatase 66 (38-126) U/L Total Protein 6.9 (6.3-8.2) g/dL Albumin 4.2 (3.5-5.0) g/dL Urine Color Urine Appearance (Clear) Urine pH (5.0-8.0) Ur Specific [place] (1.001-1.035) Urine Protein (Negative) Urine Glucose (UA) (Negative) Urine Ketones (Negative) Urine Blood (Negative) Urine Nitrite (Negative) Urine Bilirubin (Negative) Urine Urobilinogen (<2.0) mg/dL Ur Leukocyte Esterase (Negative) Urine HCG, Qual (Not Detectd) Disposition Clinical Impression: Headache Disposition: HOME SELF-CARE Condition: Good Instructions (If sedation given, give patient instructions): Acute Headache (ED) Additional Instructions: Return to the emergency department for any new or worsening symptoms. Recommend that you schedule a follow-up appoint with your primary care provider this week for further evaluation. Continue symptomatic treatment at home cycling Tylenol, Motrin. Is patient prescribed a controlled substance at d/c from ED?: No Referrals: None,Stated [Primary Care Provider] - 1-2 days Time of Disposition: 19:50
[2024-05-29] MEDS: SODIUM CHLORIDE 0.9% 1,000 ML IV STA (18:18)
[2024-05-29] MEDS: diphenhydrAMINE 50 MG/ML 1 ML VIAL IVP STA (18:18)
[2024-05-29 18:25] LABS: Basophils % (A) 1 %; Eosinophils # (A) 0.2 k/uL (0-0.7); Eosinophils % (A) 2 %; HCT 42.2 % (34.0-46.0); HGB 13.8 gm/dL (11.4-16.0); Lymphocytes # (A) 2.2 k/uL (1.0-4.8); Lymphocytes % (A) 24 %; MCH 29.1 pg (25.0-35.0); MCHC 32.7 g/dL (31.0-37.0); Mean Platelet Volume 7.1; Monocytes # (A) 0.8 k/uL (0-1.0); Monocytes % (A) 8 %; Neutrophils % (A) 64 %; Platelet Count 326 k/uL (150-450); RBC 4.75 m/uL (3.80-5.40); WBC 9.4 k/uL (3.8-10.6)
[2024-05-29 18:34] LABS: Appearance,Urine Clear (Clear); Bilirubin,Urine Negative (Negative); Blood,Urine Negative (Negative); Color,Urine Light Yellow; Glucose,Urine (UA) Negative (Negative); Ketones,Urine Negative (Negative); Leukocyte Esterase,Urine Negative (Negative); Nitrite,Urine Negative (Negative); Protein,Urine Negative (Negative); Specific Gravity,Urine 1.017 (1.001-1.035); Urobilinogen,Urine <2.0 mg/dL (<2.0)
[2024-05-29 18:52] LABS: ALT 27 U/L (4-34); AST 31 U/L (14-36); African American GFR (CKD) >90 (>60 ml/min/1.73 sqM); Albumin 4.2 g/dL (3.5-5.0); Alkaline Phosphatase 66 U/L (38-126); Anion Gap 7 mmol/L; Blood Urea Nitrogen 12 mg/dL (7-17); Calcium 9.6 mg/dL (8.4-10.2); Carbon Dioxide 24 mmol/L (22-30); Chloride 105 mmol/L (98-107); Glucose 100 mg/dL (74-99); Magnesium 1.8 mg/dL (1.6-2.3); Non-African American GFR(CKD) >90 (>60 ml/min/1.73 sqM); Potassium 4.6 mmol/L (3.5-5.1); Sodium 136 mmol/L (137-145); Total Bilirubin 0.6 mg/dL (0.2-1.3); Total Protein 6.9 g/dL (6.3-8.2)
--- NOTE | 2024-05-29 19:07 | CT ---
EXAMINATION TYPE: CT brain wo con DATE OF EXAM: 05/29/2024 COMPARISON: 01/04/2018 INDICATION: migraine DLP: 1149.4 mGycm, Automated exposure control for dose reduction was used. CONTRAST: None CT of the brain is performed utilizing 3 mm thick sections through the posterior fossa and 3 mm thick sections through the remaining calvarium. Study is performed within 24 hours of arrival to the hosp [place]. No abnormal hyperdensity is present to suggest an acute intracranial hemorrhage. No mass lesion is evident. No acute infarcts are evident. Ventricles and sulci are appropriate for the patient age. Paranasal sinuses and mastoid air cells within the [id number] are clear. IMPRESSION: 1. No acute intracranial process. Follow up MRI can be performed as clinically indicated.
[2024-05-29] MEDS: ACETAMINOPHEN TAB 500 MG TAB PO STA (19:50)
[2024-05-29] MEDS: KETOROLAC 15 MG/ML 1 ML VIAL IVP STA (19:50)
[2024-05-29 20:01] VITALS: BP 139/71; PULSE 87; RESP 16; TEMP 98.1
== END 2024-05-29 20:00 | disposition home or self-care (01) ==
LOC: EC 17:16
CPT/HCPCS: 36415; 70450; 80053; 81003; 81025; 83735; 85025; 96361; 96374; 99284

== ENCOUNTER 2024-07-14 09:43 | Emergency (ER) | payer MEDICARE, OTHER ==
--- NOTE | 2024-07-14 10:35 | ED ---
URI HPI - General Stated Complaint: fever,cough Time Seen by Provider: 07/14/24 10:01 Source: patient, RN notes reviewed - History of Present Illness Initial Comments: This is a 33-year-old female no significant past medical history presents emergency department chief complaint of cough, runny nose, congestion. States that over the past 2 days she has had a decrease in oral intake and is concerned that she may be dehydrated. States that she has been experiencing a productive cough. Intermittent fevers as well. Has not taken any Tylenol or Motrin today. She denies chest pain, shortness of breath, difficulty breathing. - Related Data Home Medications Medication Instructions Recorded Confirmed Albuterol Inhaler [Ventolin Hfa 2 puff INHALATION RT-Q6H PRN 08/13/23 08/13/23 Inhaler] Albuterol Nebulized [Ventolin 2.5 mg INHALATION RT-Q4H PRN 08/13/23 08/13/23 Nebulized] Omeprazole 20 mg PO DAILY PRN 08/13/23 08/13/23 Previous Rx's Medication Instructions Recorded Dicyclomine [Bentyl] 20 mg PO TID #30 tablet 08/13/23 Metoclopramide [Reglan] 10 mg PO TID PRN #15 tab 08/13/23 Allergies Allergy/AdvReac Type Severity Reaction Status Date / Time amoxicillin [Amoxicillin] Allergy Anaphylaxis Verified 05/29/24 17:29 Review of Systems ROS Statement: Those systems with pertinent positive or pertinent negative responses have been documented in the HPI. ROS Other: All systems not noted in ROS Statement are negative. Past Medical History Past Medical History: Asthma Additional Past Medical History / Comment(s): refused to share any health information related to why she's coming in for endoscopies History of Any Multi-Drug Resistant Organisms: None Reported Past Surgical History: Adenoidectomy, Tonsillectomy Past Anesthesia/Blood Transfusion Reactions: No Reported Reaction, Family Hist ory of Problems w/ Anesthesia Additional Past Anesthesia/Blood Transfusion Reaction / Comment(s): mom had some kind of problem w/anesthesia but she's not sure what Past Psychological History: Anxiety, Bipolar, Depression, Panic Disorder, PTSD, Schizoaffective Disorder, Schizophrenia Smoking Status: Current every day smoker Past Alcohol Use History: None Reported Past Drug Use History: Marijuana - Past Family History Mother History Unknown: Yes Family Medical History: Cancer General Exam - General Exam Comments Initial Comments: Visual Physical Exam Vital signs reviewed General: Well-appearing, nontoxic, no acute distress. Head: Normocephalic, atraumatic Eyes: PERRLA, EOMI ENT: Airway patent Chest: Nonlabored breathing Skin: No visual rash, normal skin tone Neuro: Alert and oriented 3 Musculoskeletal: No gross abnormalities General appearance: alert, in no apparent distress Eye exam: Present: normal appearance, PERRL, EOMI. Absent: scleral icterus, conjunctival injection, periorbital swelling ENT exam: Present: normal exam, mucous membranes moist Neck exam: Present: normal inspection. Absent: tenderness, meningismus, lymphadenopathy Respiratory exam: Present: normal lung sounds bilaterally. Absent: respiratory distress, wheezes, rales, rhonchi, stridor Cardiovascular Exam: Present: regular rate, normal rhythm, normal heart sounds. Absent: systolic murmur, diastolic murmur, rubs, gallop, clicks GI/Abdominal exam: Present: soft, normal bowel sounds. Absent: distended, tenderness, guarding, rebound, rigid Extremities exam: Present: normal inspection, full ROM, normal capillary refill. Absent: tenderness, pedal edema, joint swelling, calf tenderness Back exam: Present: normal inspection Neurological exam: Present: alert, oriented X3, CN II-XII intact Course Vital Signs 07/14/24 07/14/24 07/14/24 10:51 11:39 14:20 Temperature 98.4 F Pulse Rate 63 101 H 78 Respiratory 18 20 18 Rate Blood Pressure 91/66 167/82 114/90 O2 Sat by Pulse 96 97 98 Oximetry Medical Decision Making - Medical Decision Making Was pt. sent in by a medical professional or institution (, PA, REPAIR DEPARTMENT SUPERVISOR, urgent care, hospital, or fdc...) When possible be specific @ -No Did you speak to anyone other than the patient for history (EMS, parent, family, police, friend...)? What history was obtained from this source @ -No Did you review nursing and triage notes (agree or disagree)? Why? @ -I reviewed and agree with nursing and triage notes Were old charts reviewed (outside hosp., previous admission, EMS record, old EKG, old radiological studies, urgent care reports/EKG's, fdc records)? Report findings @ -No old charts were reviewed Differential Diagnosis (chest pain, altered mental status, abdominal pain women, abdominal pain men, vaginal bleeding, weakness, fever, dyspnea, syncope, headache, dizziness, GI bleed, back pain, seizure, CVA, palpatations, mental health, musculoskeletal)? @ -COVID 19, RSV, influenza, pneumonia, acute bronchitis, URI, this list is not all inclusive EKG interpreted by me (3pts min.). @ -none X-rays interpreted by me (1pt min.). @ -X-ray no acute cardiopulmonary process or disease CT interpreted by me (1pt min.). @ -None done U/S interpreted by me (1pt. min.). @ -None done What testing was considered but not performed or refused? (CT, X-rays, U/S, labs)? Why? @ -None What meds were considered but not given or refused? Why? @ -None Did you discuss the management of the patient with other professionals (professionals i.e. , PA, REPAIR DEPARTMENT SUPERVISOR, lab, RT, psych nurse, psychologist social, forward air controller/air officer, teacher, driver's license reviewing officer, patient case manager)? Give summary @ -No Was smoking cessation discussed for >3mins.? @ -No Was critical care preformed (if so, how long)? @ -No Were there social determinants of health that impacted care today? How? (Homelessness, low income, unemployed, alcoholism, drug addiction, transportation, low edu. Level, literacy, decrease access to med. care, retirement, rehab)? @ -No Was there de-escalation of care discussed even if they declined (Discuss DNR or withdrawal of care, Hospice)? DNR status @ -No What co-morbidities impacted this encounter? (DM, HTN, Smoking, COPD, CAD, Can cer, CVA, ARF, Chemo, Hep., AIDS, mental health diagnosis, sleep apnea, morbid obesity)? @ -None Was patient admitted / discharged? Hospital course, mention meds given and route, prescriptions, significant lab abnormalities, going to OR and other pertinent info. @ -Discharge. 33-year-old female with upper respiratory patient symptoms. My evaluation the patient she is a sitting up for no signs acute distress. Her vitals are stable. Patient was evaluated in the emergency department waiting room where swabs were in addition to chest x-ray. While patient was in the waiting room she had a episode when she fell and hit her knees. She denies hitting her head. States that she feels slightly weak. Reported at this time in addition to a liter fluid bolus with concern for dehydration. CBC, CMP unremarkable, COVID, flu, RSV, and strep negative. Neurological examination unremarkable. Patient symptoms likely secondary to a viral syndrome recommend she continue supportive treatment at home cycling Tylenol Motrin as needed. Discussed with Dr. Gomze Undiagnosed new problem with uncertain prognosis? @ -No Drug Therapy requiring intensive monitoring for toxicity (Heparin, Nitro, Insulin, Cardizem)? @ -No Were any procedures done? @ -No Diagnosis/symptom? @ -viral syndrome Acute, or Chronic, or Acute on Chronic? @ -acute Uncomplicated (without systemic symptoms) or Complicated (systemic symptoms)? @ -uncomplicated Side effects of treatment? @ -No Exacerbation, Progression, or Severe Exacerbation? @ -No Poses a threat to life or bodily function? How? (Chest pain, [place], [place], pneumonia, PE, COPD, DKA, ARF, appy, cholecystitis, CVA, Diverticulitis, Homicidal, [place] icidal, threat to staff... and all critical care pts) @ -No - Lab Data Result diagrams: 07/14/24 12:23 07/14/24 12:23 Lab Results 07/14/24 07/14/24 07/14/24 Range/Units 11:32 11:32 12:23 WBC 9.5 (3.8-10.6) k/uL RBC 4.81 (3.80-5.40) m/uL Hgb 14.0 (11.4-16.0) gm/dL Hct 43.8 (34.0-46.0) % MCV 91.1 (80.0-100.0) fL MCH 29.0 (25.0-35.0) pg MCHC 31.9 (31.0-37.0) g/dL RDW 13.0 (11.5-15.5) % Plt Count 287 (150-450) k/uL MPV 7.1 Neutrophils % 72 % Lymphocytes % 18 % Monocytes % 6 % Eosinophils % 2 % Basophils % 0 % Neutrophils # 6.9 (1.3-7.7) k/uL Lymphocytes # 1.7 (1.0-4.8) k/uL Monocytes # 0.6 (0-1.0) k/uL Eosinophils # 0.1 (0-0.7) k/uL Basophils # 0.0 (0-0.2) k/uL Sodium (137-145) mmol/L Potassium (3.5-5.1) mmol/L Chloride (98-107) mmol/L Carbon Dioxide (22-30) mmol/L Anion Gap mmol/L BUN (7-17) mg/dL Creatinine (0.52-1.04) mg/dL Est GFR (CKD-EPI)AfAm (>60 ml/min/1.73 sqM) Est GFR (CKD-EPI)NonAf (>60 ml/min/1.73 sqM) Glucose (74-99) mg/dL Calcium (8.4-10.2) mg/dL Total Bilirubin (0.2-1.3) mg/dL AST (14-36) U/L ALT (4-34) U/L Alkaline Phosphatase (38-126) U/L Total Protein (6.3-8.2) g/dL Albumin (3.5-5.0) g/dL Influenza Type A (PCR) Not Detected (Not Detectd) Influenza Type B (PCR) Not Detected (Not Detectd) RSV (PCR) Not Detected (Not Detectd) SARS-CoV-2 (PCR) Not Detected (Not Detectd) Group A Strep (PCR) NOT DETECTED (Not Detectd) 07/14/24 Range/Units 12:23 WBC (3.8-10.6) k/uL RBC (3.80-5.40) m/uL Hgb (11.4-16.0) gm/dL Hct (34.0-46.0) % MCV (80.0-100.0) fL MCH (25.0-35.0) pg MCHC (31.0-37.0) g/dL RDW (11.5-15.5) % Plt Count (150-450) k/uL MPV Neutrophils % % Lymphocytes % % Monocytes % % Eosinophils % % Basophils % % Neutrophils # (1.3-7.7) k/uL Lymphocytes # (1.0-4.8) k/uL Monocytes # (0-1.0) k/uL Eosinophils # (0-0.7) k/uL Basophils # (0-0.2) k/uL Sodium 138 (137-145) mmol/L Potassium 4.5 (3.5-5.1) mmol/L Chloride 110 H (98-107) mmol/L Carbon Dioxide 21 L (22-30) mmol/L Anion Gap 7 mmol/L BUN 12 (7-17) mg/dL Creatinine 0.80 (0.52-1.04) mg/dL Est GFR (CKD-EPI)AfAm >90 (>60 ml/min/1.73 sqM) Est GFR (CKD-EPI)NonAf >90 (>60 ml/min/1.73 sqM) Glucose 108 H (74-99) mg/dL Calcium 8.7 (8.4-10.2) mg/dL Total Bilirubin 0.7 (0.2-1.3) mg/dL AST 28 (14-36) U/L ALT 27 (4-34) U/L Alkaline Phosphatase 58 (38-126) U/L Total Protein 6.7 (6.3-8.2) g/dL Albumin 3.9 (3.5-5.0) g/dL Influenza Type A (PCR) (Not Detectd) Influenza Type B (PCR) (Not Detectd) RSV (PCR) (Not Detectd) SARS-CoV-2 (PCR) (Not Detectd) Group A Strep (PCR) (Not Detectd) Disposition Clinical Impression: Viral URI with cough Disposition: HOME SELF-CARE Condition: Good Instructions (If sedation given, give patient instructions): Viral Syndrome (ED) Additional Instructions: Please return to the Emergency Department if symptoms worsen or any other concerns. Continue symptomatic treatment at home increasing hydration and using Tylenol Motrin as needed. Is patient prescribed a controlled substance at d/c from ED?: No Referrals: None,Stated [Primary Care Provider] - 1-2 days Time of Disposition: 13:42
[2024-07-14 10:54] VITALS: TEMP 98.4
[2024-07-14] MEDS: SODIUM CHLORIDE 0.9% 1,000 ML IV STA (12:24)
[2024-07-14 12:35] LABS: Basophils % (A) 0 %; Eosinophils # (A) 0.1 k/uL (0-0.7); Eosinophils % (A) 2 %; HCT 43.8 % (34.0-46.0); Lymphocytes # (A) 1.7 k/uL (1.0-4.8); Lymphocytes % (A) 18 %; MCHC 31.9 g/dL (31.0-37.0); MCV 91.1 fL (80.0-100.0); Mean Platelet Volume 7.1; Monocytes # (A) 0.6 k/uL (0-1.0); Monocytes % (A) 6 %; Neutrophils # (A) 6.9 k/uL (1.3-7.7); Neutrophils % (A) 72 %; Platelet Count 287 k/uL (150-450); RBC 4.81 m/uL (3.80-5.40); WBC 9.5 k/uL (3.8-10.6)
[2024-07-14 12:45] LABS: ALT 27 U/L (4-34); AST 28 U/L (14-36); African American GFR (CKD) >90 (>60 ml/min/1.73 sqM); Albumin 3.9 g/dL (3.5-5.0); Alkaline Phosphatase 58 U/L (38-126); Anion Gap 7 mmol/L; Blood Urea Nitrogen 12 mg/dL (7-17); Calcium 8.7 mg/dL (8.4-10.2); Carbon Dioxide 21 mmol/L (22-30); Chloride 110 mmol/L (98-107); Glucose 108 mg/dL (74-99); Non-African American GFR(CKD) >90 (>60 ml/min/1.73 sqM); Potassium 4.5 mmol/L (3.5-5.1); Sodium 138 mmol/L (137-145); Total Bilirubin 0.7 mg/dL (0.2-1.3); Total Protein 6.7 g/dL (6.3-8.2)
--- NOTE | 2024-07-14 13:38 | XR ---
EXAMINATION TYPE: XR chest 2V DATE OF EXAM: 07/14/2024 COMPARISON: 09/29/2023 HISTORY: Cough TECHNIQUE: Frontal and lateral views of the chest are obtained. FINDINGS: There is no focal air space opacity, pleural effusion, or pneumothorax seen. The cardiac silhouette size is within normal limits. The osseous structures are intact. IMPRESSION: No acute cardiopulmonary process. [facility], , 07/14/2024 1:36 PM
[2024-07-14 14:24] VITALS: BP 114/90; PULSE 78; RESP 18
== END 2024-07-14 14:24 | disposition home or self-care (01) ==
LOC: EC 09:43
DX: J06.9 Acute upper respiratory infection, unspecified (principal); F17.200 Nicotine dependence, unspecified, uncomplicated; Z88.0 Allergy status to penicillin
CPT/HCPCS: 36415; 71046; 80053; 85025; 87636; 87651; 96360; 99283